=== PATIENT | female | born 1995 | race Two or more races ===

== ENCOUNTER 2017-06-16 02:46 | Emergency (ER) | payer BC ==
[2017-06-16 02:57] VITALS: RESP 16
[2017-06-16 03:29] LABS: Appearance,Urine Clear (Clear); Bilirubin,Urine Negative (Negative); Glucose,Urine (UA) Negative (Negative); Ketones,Urine Negative (Negative); Leukocyte Esterase,Urine Negative (Negative); Nitrite,Urine Negative (Negative); PH, Urine 6.5 (5.0-8.0); Protein,Urine Negative (Negative); Specific Gravity,Urine 1.014 (1.001-1.035); UA Billing (MACRO vs. MICRO) CHEM; Urobilinogen,Urine <2.0 mg/dL (<2.0)
[2017-06-16] MEDS ORDERED: SODIUM CHLORIDE 0.9% 1,000 ML IV STA (03:37)
--- NOTE | 2017-06-16 04:25 | ED ---
General Adult HPI - General Chief complaint: Urogenital Stated complaint: Cramping-early in Time Seen by Provider: 06/16/17 03:00 Source: patient Mode of arrival: ambulatory Limitations: no limitations - History of Present Illness Initial comments: 21-year-old female patient presents to emergency department stay with complaints of lower abdominal cramping and lower back pain. Patient states that symptoms have been present for 2 days. Patient states that she has had a positive test at home. Patient is unsure how far long she has she states her last period was somewhere between April 25 and April 30. Patient states that the pain is intermittent cramping and feels like menstrual cramps. Patient denies any fever, chills, chest pain, shortness of breath, vaginal bleeding, vaginal discharge, hematuria, dysuria, urinary frequency or urinary urgency. Patient states that she has been somewhat constipated. She states she has also been nauseated hasn't vomited. She states this is her first . She has her first ACQUISITION MARKETING COORDINATOR appointment on June 25. - Related Data Previous Rx's Medication Instructions Recorded Ibuprofen [Motrin] 600 mg PO Q6HR PRN #20 tab 10/10/15 Metoclopramide [Reglan] 10 mg PO Q8H PRN #15 tab 06/16/17 Pnv No.95/Ferrous Fum/Folic AC 1 each PO DAILY #30 tablet 06/16/17 [ Multivitamin Tablet] Allergies Allergy/AdvReac Type Severity Reaction Status Date / Time No Known Allergies Allergy Verified 06/16/17 02:57 Review of Systems ROS Statement: Those systems with pertinent positive or pertinent negative responses have been documented in the HPI. ROS Other: All systems not noted in ROS Statement are negative. Past Medical History Past Medical History: No Reported History History of Any Multi-Drug Resistant Organisms: None Reported Past Surgical History: No Surgical Hx Reported Past Psychological History: No Psychological Hx Reported Smoking Status: Never smoker Past Alcohol Use History: None Reported Past Drug Use History: None Reported General Exam Limitations: no limitations General appearance: alert, in no apparent distress Head exam: Present: atraumatic, normocephalic, normal inspection Eye exam: Present: normal appearance, PERRL, EOMI. Absent: scleral icterus, conjunctival injection, periorbital swelling ENT exam: Present: normal exam, mucous membranes moist Neck exam: Present: normal inspection. Absent: tenderness, meningismus, lymphadenopathy Respiratory exam: Present: normal lung sounds bilaterally. Absent: respiratory distress, wheezes, rales, rhonchi, stridor Cardiovascular Exam: Present: regular rate, normal rhythm, normal heart sounds. Absent: systolic murmur, diastolic murmur, rubs, gallop, clicks GI/Abdominal exam: Present: soft, tenderness (Her abdominal tenderness), normal bowel sounds. Absent: distended, guarding, rebound, rigid Extremities exam: Present: normal inspection, full ROM, normal capillary refill. Absent: tenderness, pedal edema, joint swelling, calf tenderness Back exam: Present: normal inspection. Absent: CVA tenderness (R), CVA tenderness (L) Neurological exam: Present: alert, oriented X3, CN II-XII intact Psychiatric exam: Present: normal affect, normal mood Skin exam: Present: warm, dry, intact, normal color. Absent: rash Course Vital Signs 06/16/17 02:54 Temperature 97.2 F L Pulse Rate 78 Respiratory 16 Rate Blood Pressure 132/87 O2 Sat by Pulse 100 Oximetry Medical Decision Making - Medical Decision Making 21-year-old female patient presents to emergency department today for evaluation of lower abdominal cramping and low back pain and . Patient did not have any vaginal bleeding or vaginal discharge. Patient blood type A positive. Ultrasound did reveal a live single intrauterine measuring 6 weeks with a heart rate of 102. Also did reveal 2 pockets of subchorionic hemorrhage. Patient will be discharged home with instructions to follow up as soon as possible with ACQUISITION MARKETING COORDINATOR. Patient given referral for Dr. Bar who is correspondence representative. Patient instructed to increase fluids and to return immediately for any new, worsening, or concerning symptoms. - Lab Data Lab Results 06/16/17 06/16/17 06/16/17 Range/Units 03:00 03:45 03:45 HCG, Quant 94069.2 mIU/mL Urine Color Yellow Urine Appearance Clear (Clear) Urine pH 6.5 (5.0-8.0) Ur Specific [place] 1.014 (1.001-1.035) Urine Protein Negative (Negative) Urine Glucose (UA) Negative (Negative) Urine Ketones Negative (Negative) Urine Blood Negative (Negative) Urine Nitrite Negative (Negative) Urine Bilirubin Negative (Negative) Urine Urobilinogen <2.0 (<2.0) mg/dL Ur Leukocyte Esterase Negative (Negative) Blood Type A Positive Blood Type Recheck No - Radiology Data Radiology results: report reviewed, image reviewed Ultrasound obstetrics transvaginal was obtained and showed single live intrauterine . 2 small pockets of subchorionic hemorrhage. Embryonic heart rate is 102. Left ovarian cyst noted. Disposition Clinical Impression: Abdominal pain during in first trimester, Subchorionic hemorrhage in first trimester Disposition: HOME SELF-CARE Condition: Good Instructions: (ED), Abdominal Pain in (ED), Subchorionic Hemorrhage (ED) Additional Instructions: Follow-up with ACQUISITION MARKETING COORDINATOR as soon as possible. Increase fluid intake. Return immediately for any new, worsening, or concerning symptoms. Prescriptions: Metoclopramide [Reglan] 10 mg PO Q8H PRN #15 tab PRN Reason: nausea/vomiting Pnv No.95/Ferrous Fum/Folic AC [ Multivitamin Tablet] 1 each PO DAILY # 30 tablet Referrals: Eugenio Lenz MD [Primary Care Provider] - 1-2 days Candelaria Bar DO [Doctor of Osteopathic Medicine] - 1-2 days Time of Disposition: 06:00
--- NOTE | 2017-06-16 05:50 | US ---
EXAM: US After First Trimester, Transabdominal US , Transvaginal CLINICAL HISTORY: Reason: Pain TECHNIQUE: Real-time transabdominal and endovaginal obstetrical ultrasound of the maternal pelvis and a second or third trimester with image documentation. Endovaginal imaging was used for better evaluation of the fetus and adnexa. COMPARISON: No relevant prior studies available. FINDINGS: Beta HcG (if available): not available Date of LMP: 04/25/2017, G1 Dates by LMP: (7 weeks/3 days) EDC: 01/30/2018 Dates by Current Scan for: (6 weeks/0 days) EDC: 02/09/2018 MATERNAL ANATOMY Uterus: 8.6 x 5.8 x 5.1 cm Right Ovary: 2.3 x 1.0 x 1.4 cm Left Ovary: 4.5 x 3.9 x 3.1 cm. Left ovary cyst measures about 3.5 x 3.5 x 3.2 cm Presence of subchorionic bleed: two. 1- left of gestational sac= 0.6 x 0. 6x 0.3 cm. 2- midline- 1.2 x 0.7 x 1.0 cm. GESTATION / SURVEY CRL: 0.3 (6 weeks/0 days) MSD: seen, not measured Yolk Sac (normal less than 6mm): 2.7 mm Heart Rate: 102 bpm Rhythm: normal IMPRESSION: Single live intrauterine . 2 small pockets of subchorionic hemorrhage warrants followup. Embryonic heart rate is 102 Left ovarian cyst
[2017-06-16 06:14] VITALS: BP 108/70; PULSE 70; TEMP 98
== END 2017-06-16 06:13 | disposition home or self-care (01) ==
LOC: EC 02:46
DX: O43.891 Other placental disorders, first trimester (principal); O99.89 Other specified diseases and conditions complicating pregnancy, childbirth and the puerperium; R10.9 Unspecified abdominal pain; Z3A.01 Less than 8 weeks gestation of pregnancy
CPT/HCPCS: 36415; 76801; 76817; 81003; 84702; 86900; 86901; 96360; 96361; 99284

== ENCOUNTER 2017-07-09 14:37 | Emergency (ER) | payer BC ==
[2017-07-09] MEDS ORDERED: SODIUM CHLORIDE 0.9% 1,000 ML IV STA (15:21)
[2017-07-09] MEDS ORDERED: ACETAMINOPHEN TAB 500 MG TAB PO STA (15:21)
--- NOTE | 2017-07-09 15:23 | ED ---
General Adult HPI - General Chief complaint: Headache Stated complaint: 11 wks preg. Vomiting Time Seen by Provider: 07/09/17 15:15 Source: patient, RN notes reviewed Mode of arrival: ambulatory Limitations: no limitations - History of Present Illness Initial comments: 21-year-old female presents with respiratory type symptoms. Patient states she' s had a little bit of a cough a sore throat and runny nose headache for the past few days. Patient states she also associated nausea vomiting. Patient states she is 11 weeks . She is not taking any medication for this. She states she has not been able to eat and drink much she starting to feels if she is getting worse. Patient states she hasn't noticed any high fevers at home. Patient denies any changes in urination. patient denies abdominal pain. - Related Data Home Medications Medication Instructions Recorded Confirmed Pnv,Calcium 72/Iron/Folic Acid 1 tab PO DAILY 07/09/17 07/09/17 [ Plus Tablet] Allergies Allergy/AdvReac Type Severity Reaction Status Date / Time No Known Allergies Allergy Verified 07/09/17 15:09 Review of Systems ROS Statement: Those systems with pertinent positive or pertinent negative responses have been documented in the HPI. ROS Other: All systems not noted in ROS Statement are negative. Past Medical History Past Medical History: No Reported History History of Any Multi-Drug Resistant Organisms: None Reported Past Surgical History: Orthopedic Surgery Past Psychological History: No Psychological Hx Reported Smoking Status: Never smoker Past Alcohol Use History: None Reported Past Drug Use History: None Reported General Exam - General Exam Comments Initial Comments: General: The patient is awake and alert, in no distress, and does not appear acutely ill. Eye: Pupils are equal, round and reactive to light, extra-ocular movements are intact; there is normal conjunctiva bilaterally. No signs of icterus. Ears, nose, mouth and throat: There are moist mucous membranes. Neck: The neck is supple, there is no tenderness. Cardiovascular: There is a regular rate and rhythm. No murmur, rub or gallop is appreciated. Respiratory: Lungs are clear to auscultation, respirations are non-labored, breath sounds are equal. No wheezes, stridor, rales, or rhonchi. Gastrointestinal: Soft, non-distended, non-tender abdomen without masses or organomegaly noted. There is no rebound or guarding present. No CVA tenderness. Bowel sounds are unremarkable. Back: There is no tenderness to palpation in the midline. There is no obvious deformity. No rashes noted. Musculoskeletal: Normal ROM, no tenderness, There is no pedal edema. There is no calf tenderness or swelling. Sensation intact. Pulses equal bilaterally 2+. Neurological: CN II-XII intact, There are no obvious motor or sensory deficits. Coordination appears grossly intact. Speech is normal. Skin: Skin is warm and dry and no rashes or lesions are noted. Psychiatric: Cooperative, appropriate mood & affect, normal judgment. Limitations: no limitations Course Vital Signs 07/09/17 14:46 Temperature 100 F H Pulse Rate 114 H Respiratory 20 Rate Blood Pressure 117/81 O2 Sat by Pulse 98 Oximetry Medical Decision Making - Medical Decision Making 21-year-old female presents for upper respiratory type symptoms. At this time lab work has been reviewed as well as strep is negative. This and we discussed patient most likely a viral like syndrome. We discussed usp. We did discuss appropriate medications. We did discuss return parameters and follow-up and all the patient's questions. They state [facility] management plan. This time they will be discharged home. - Lab Data Result diagrams: 07/09/17 15:27 07/09/17 15:27 Lab Results 07/09/17 07/09/17 07/09/17 Range/Units 15:27 15:27 15:34 WBC 9.6 (3.8-10.6) k/uL RBC 4.80 (3.80-5.40) m/uL Hgb 15.3 (11.4-16.0) gm/dL Hct 43.9 (34.0-46.0) % MCV 91.5 (80.0-100.0) fL MCH 31.9 (25.0-35.0) pg MCHC 34.9 (31.0-37.0) g/dL RDW 12.9 (11.5-15.5) % Plt Count 262 (150-450) k/uL Neutrophils % 80 % Lymphocytes % 10 % Monocytes % 8 % Eosinophils % 1 % Basophils % 0 % Neutrophils # 7.6 (1.3-7.7) k/uL Lymphocytes # 0.9 L (1.0-4.8) k/uL Monocytes # 0.8 (0-1.0) k/uL Eosinophils # 0.1 (0-0.7) k/uL Basophils # 0.0 (0-0.2) k/uL Sodium 135 L (137-145) mmol/L Potassium 4.1 (3.5-5.1) mmol/L Chloride 103 (98-107) mmol/L Carbon Dioxide 21 L (22-30) mmol/L Anion Gap 11 mmol/L BUN 4 L (7-17) mg/dL Creatinine 0.50 L (0.52-1.04) mg/dL Est GFR (MDRD) Af Amer >60 (>60 ml/min/1.73 sqM) Est GFR (MDRD) Non-Af >60 (>60 ml/min/1.73 sqM) Glucose 88 (74-99) mg/dL Calcium 9.2 (8.4-10.2) mg/dL Total Bilirubin 0.6 (0.2-1.3) mg/dL AST 23 (14-36) U/L ALT 35 (9-52) U/L Alkaline Phosphatase 103 (38-126) U/L Total Protein 7.1 (6.3-8.2) g/dL Albumin 4.0 (3.5-5.0) g/dL Urine Color Yellow Urine Appearance Clear (Clear) Urine pH 6.5 (5.0-8.0) Ur Specific [place] 1.020 (1.001-1.035) Urine Protein Trace H (Negative) Urine Glucose (UA) Negative (Negative) Urine Ketones Negative (Negative) Urine Blood Negative (Negative) Urine Nitrite Negative (Negative) Urine Bilirubin Negative (Negative) Urine Urobilinogen <2.0 (<2.0) mg/dL Ur Leukocyte Esterase Negative (Negative) Group A Strep Rapid (Negative) 07/09/17 Range/Units 15:34 WBC (3.8-10.6) k/uL RBC (3.80-5.40) m/uL Hgb (11.4-16.0) gm/dL Hct (34.0-46.0) % MCV (80.0-100.0) fL MCH (25.0-35.0) pg MCHC (31.0-37.0) g/dL RDW (11.5-15.5) % Plt Count (150-450) k/uL Neutrophils % % Lymphocytes % % Monocytes % % Eosinophils % % Basophils % % Neutrophils # (1.3-7.7) k/uL Lymphocytes # (1.0-4.8) k/uL Monocytes # (0-1.0) k/uL Eosinophils # (0-0.7) k/uL Basophils # (0-0.2) k/uL Sodium (137-145) mmol/L Potassium (3.5-5.1) mmol/L Chloride (98-107) mmol/L Carbon Dioxide (22-30) mmol/L Anion Gap mmol/L BUN (7-17) mg/dL Creatinine (0.52-1.04) mg/dL Est GFR (MDRD) Af Amer (>60 ml/min/1.73 sqM) Est GFR (MDRD) Non-Af (>60 ml/min/1.73 sqM) Glucose (74-99) mg/dL Calcium (8.4-10.2) mg/dL Total Bilirubin (0.2-1.3) mg/dL AST (14-36) U/L ALT (9-52) U/L Alkaline Phosphatase (38-126) U/L Total Protein (6.3-8.2) g/dL Albumin (3.5-5.0) g/dL Urine Color Urine Appearance (Clear) Urine pH (5.0-8.0) Ur Specific [place] (1.001-1.035) Urine Protein (Negative) Urine Glucose (UA) (Negative) Urine Ketones (Negative) Urine Blood (Negative) Urine Nitrite (Negative) Urine Bilirubin (Negative) Urine Urobilinogen (<2.0) mg/dL Ur Leukocyte Esterase (Negative) Group A Strep Rapid Negative (Negative) Disposition Clinical Impression: Viral syndrome, Nausea & vomiting Disposition: HOME SELF-CARE Condition: Stable Instructions: Viral Syndrome (ED) Additional Instructions: Please use medication as discussed. Please follow up with family doctor if symptoms have not improved over the next two days. Please return to the emergency room if your symptoms increase or worsen or for any other concerns. Referrals: Eugenio Lenz MD [Primary Care Provider] - 1-2 days Time of Disposition: 17:25
[2017-07-09 15:47] LABS: Basophils % (A) 0 %; CH 31.4; CHCM 34.5; Eosinophils # (A) 0.1 k/uL (0-0.7); Eosinophils % (A) 1 %; HCT 43.9 % (34.0-46.0); HDW 2.15; HGB 15.3 gm/dL (11.4-16.0); Luc # (Auto) 0.18; Luc % (Auto) 2; Lymphocytes # (A) 0.9 k/uL (1.0-4.8); Lymphocytes % (A) 10 %; MCH 31.9 pg (25.0-35.0); MCHC 34.9 g/dL (31.0-37.0); MCV 91.5 fL (80.0-100.0); Mean Platelet Volume 7.4; Monocytes # (A) 0.8 k/uL (0-1.0); Monocytes % (A) 8 %; Neutrophils # (A) 7.6 k/uL (1.3-7.7); Neutrophils % (A) 80 %; RDW 12.9 % (11.5-15.5); WBC 9.6 k/uL (3.8-10.6); WBC (Perox) 9.96
[2017-07-09 15:54] LABS: Appearance,Urine Clear (Clear); Bilirubin,Urine Negative (Negative); Glucose,Urine (UA) Negative (Negative); Ketones,Urine Negative (Negative); Leukocyte Esterase,Urine Negative (Negative); Nitrite,Urine Negative (Negative); PH, Urine 6.5 (5.0-8.0); Protein,Urine Trace (Negative); UA Billing (MACRO vs. MICRO) CHEM; Urobilinogen,Urine <2.0 mg/dL (<2.0)
[2017-07-09 17:18] LABS: ALT 35 U/L (9-52); AST 23 U/L (14-36); Alkaline Phosphatase 103 U/L (38-126); Anion Gap 11 mmol/L; Blood Urea Nitrogen 4 mg/dL (7-17); Calcium 9.2 mg/dL (8.4-10.2); Carbon Dioxide 21 mmol/L (22-30); Chloride 103 mmol/L (98-107); Glucose 88 mg/dL (74-99); Non-African American GFR(MDRD) >60 (>60 ml/min/1.73 sqM); Potassium 4.1 mmol/L (3.5-5.1); Sodium 135 mmol/L (137-145); Total Bilirubin 0.6 mg/dL (0.2-1.3); Total Protein 7.1 g/dL (6.3-8.2)
[2017-07-09 18:05] VITALS: BP 123/84; PULSE 73; RESP 18; TEMP 98.9
== END 2017-07-09 18:05 | disposition home or self-care (01) ==
LOC: EC 14:37
DX: O98.511 Other viral diseases complicating pregnancy, first trimester (principal); B34.9 Viral infection, unspecified; Z79.899 Other long term (current) drug therapy; Z3A.11 11 weeks gestation of pregnancy
CPT/HCPCS: 36415; 80053; 81003; 85025; 87081; 87430; 87491; 87591; 96360; 99284

== ENCOUNTER → 2017-08-14 | Outpatient (CLI) | payer BC ==
[2017-08-14 13:03] LABS: CH 31.3; CHCM 33.1; HCT 41.5 % (34.0-46.0); HGB 13.9 gm/dL (11.4-16.0); MCH 31.8 pg (25.0-35.0); MCHC 33.5 g/dL (31.0-37.0); MCV 94.9 fL (80.0-100.0); Mean Platelet Volume 7.4; RBC 4.37 m/uL (3.80-5.40); WBC 9.8 k/uL (3.8-10.6)
[2017-08-14 13:05] LABS: Glucose 84 mg/dL (74-99); Non-African American GFR(MDRD) >60 (>60 ml/min/1.73 sqM)
[2017-08-14 13:37] LABS: Hepatitis B Surface Ag Index 0.06
[2017-08-14 18:58] LABS: Treponemal Ab Non-Reactive (Non-Reactive)
== END | disposition home or self-care (01) ==
LOC: LABWHC1 12:13
PROVIDERS: ATTEND Obstetrics & Gynecology
DX: O26.819 Pregnancy related exhaustion and fatigue, unspecified trimester (principal); Z3A.00 Weeks of gestation of pregnancy not specified
CPT/HCPCS: 36415; 82565; 82947; 85027; 86762; 86780; 86850; 86900; 86901; 87340; 87390

== ENCOUNTER 2018-01-24 20:30 | Outpatient (CLI) | payer BC, OTHER ==
[2018-01-24 21:50] LABS: Appearance,Urine Cloudy (Clear); Bacteria,Urine Moderate /hpf; Bilirubin,Urine Negative (Negative); Blood,Urine Moderate (Negative); Color,Urine Yellow; Glucose,Urine (UA) Negative (Negative); Ketones,Urine Negative (Negative); Leukocyte Esterase,Urine Moderate (Negative); Mucus,Urine Rare /hpf; Nitrite,Urine Negative (Negative); PH, Urine 6.5 (5.0-8.0); Protein,Urine Trace (Negative); RBC,Urine >182 /hpf (0-5); Specific Gravity,Urine 1.016 (1.001-1.035); Squamous Epithelial Cell,Urine 1 /hpf (0-4); Urobilinogen,Urine <2.0 mg/dL (<2.0); WBC,Urine 5 /hpf (0-5)
[2018-01-24 21:51] LABS: Basophils % (A) 0 %; Eosinophils # (A) 0.1 k/uL (0-0.7); Eosinophils % (A) 1 %; HCT 39.9 % (34.0-46.0); HGB 14.1 gm/dL (11.4-16.0); Lymphocytes # (A) 1.8 k/uL (1.0-4.8); Lymphocytes % (A) 15 %; MCH 31.8 pg (25.0-35.0); MCHC 35.3 g/dL (31.0-37.0); MCV 90.1 fL (80.0-100.0); Monocytes # (A) 0.7 k/uL (0-1.0); Monocytes % (A) 6 %; Neutrophils # (A) 9.1 k/uL (1.3-7.7); Neutrophils % (A) 76 %; Platelet Count 268 k/uL (150-450); RBC 4.43 m/uL (3.80-5.40); RDW 13.3 % (11.5-15.5); WBC 11.9 k/uL (3.8-10.6)
[2018-01-24 22:03] VITALS: BP 138/96; PULSE 90; RESP 16; TEMP 98.4
[2018-01-24 22:06] LABS: ALT 25 U/L (9-52); AST 18 U/L (14-36); Blood Urea Nitrogen 8 mg/dL (7-17); LDH 435 U/L (313-618); Uric Acid 3.6 mg/dL (3.7-7.4)
[2018-01-24] MEDS ORDERED: CEPHALEXIN 500 MG CAP PO STA (22:28)
--- NOTE | 2018-01-28 08:46 | P.MSEPDOC ---
Presenting Problems - Arrival Data Date of Arrival on Unit: 01/24/18 Time of Arrival on Unit: 20:30 Mode of Transport: Ambulatory - Complaint OB-Reason for Admission/Chief Complaint: Rule Out SROM Medical History - Information : 1 Para: 0 Term: 0 : 0 Abortions: Spontaneous or Elective: 0 Number of Living Children: 0 - Gestational Age Gestational Age by MARY BETH (wks/days): 37 Weeks and 5 Days Review of Systems - Review of Systems Constitutional: No problems Breast: No problems ENT: No problems Cardiovascular: No problems Respiratory: No problems Gastrointestinal: No problems Genitourinary: No problems Musculoskeletal: No problems Neurological: No problems Skin: No problems Vital Signs - Temperature Temperature: 98.4 F Temperature Source: Temporal Artery Scan - Pulse Right Sitting Brachial Pulse Rate: 90 Pulse Assessment Method: Automatic Cuff - Respirations Respiratory Rate: 16 Oxygen Delivery Method: Room Air - Blood Pressure Right Arm Sitting Blood Pressure: 138/96 Blood Pressure Mean: 110 Blood Pressure Source: Automatic Cuff Medical Screen Scoring (Pre) - Cervical Exam Dilation: 1-3 cm = 1 Membranes: Intact - Uterine Contractions Frequency: > or = 36 weeks =2 Duration: > 40 seconds = 2 - Maternal Vital Signs Maternal Blood Pressure: Diastolic > 89 = 1 - Pain Assessment Pain Location and Character: Medial, Abdomen Pain Scale Used: Numeric (1 - 10) Pain Intensity: 2 Pain Management Goal: 2 Pain Description: Cramping Pain Radiation Location: n/a Pain Frequency: Intermittent Pain Duration: 30 Pain Duration Units: Minutes Pain Behavior: Vocalization Pain Aggravating Factors: None - Maternal Trauma Maternal Trauma: N/A - Assessment Baseline FHR: 130 Heart Rate - NICHD Category: Category I (Normal) = 0 NST: Reactive - Total Score Total Score (Pre): 6 - Level of Risk Level of Risk: Medium (6-9) Physician Notification (Post) - Physician Notified Physician Notified Date: 01/24/18 Physician Notified Time: 22:23 Physician/Practitioner Notified:: destiney Spoke With: destiney New Order Received: Yes - Notification Comment Comment: ordered a dose of keflex, send e-script to pt's pharmacy to hand picker tomorrow, pt instructed to come back to [facility] on saturday for BP check and NST. pt discharged home. Disposition - Disposition OB Disposition: Discharge to home Discharge Date: 01/24/18 Discharge Time: 22:59 I agree with the RN Medical Screening Exam: Yes Risk & Benefit of care provided described in d/c instruction: Yes Diagnosis: URINARY TRACT INFECTION, SITE NOT SPECIFIED
== END 2018-01-24 22:59 | disposition home or self-care (01) ==
LOC: FBPOP 20:30
PROVIDERS: ATTEND Obstetrics & Gynecology
DX: O99.89 Other specified diseases and conditions complicating pregnancy, childbirth and the puerperium (principal); N39.0 Urinary tract infection, site not specified; Z3A.37 37 weeks gestation of pregnancy
CPT/HCPCS: 59025; 81001; 82565; 83615; 84112; 84450; 84460; 84520; 84550; 85025; 99215

== ENCOUNTER 2018-01-26 10:28 | Inpatient (IN) | payer BC, OTHER ==
[2018-01-26] MEDS ORDERED: LIDOCAINE 1% (PF) 10 MG/ML (30 ML SDV) SQ PRN (11:43)
[2018-01-26] MEDS ORDERED: OXYTOCIN 10 UNIT/ML 1 ML VIAL IM PRN (11:43)
[2018-01-26] MEDS ORDERED: TERBUTALINE 1 MG/ML VIAL SQ PRN (11:43)
[2018-01-26] MEDS ORDERED: METHYLERGONOVINE 0.2 MG/ML 1 ML AMP IM PRN (11:43)
[2018-01-26] MEDS ORDERED: CARBOPROST TROMETHAMINE 250 MCG/ML 1 ML AMP IM PRN (11:43)
[2018-01-26 12:01] LABS: Basophils # (A) 0.1 k/uL (0-0.2); Basophils % (A) 1 %; Eosinophils # (A) 0.1 k/uL (0-0.7); Eosinophils % (A) 1 %; HCT 39.9 % (34.0-46.0); HGB 13.7 gm/dL (11.4-16.0); Lymphocytes # (A) 2.2 k/uL (1.0-4.8); Lymphocytes % (A) 22 %; MCH 31.1 pg (25.0-35.0); MCHC 34.3 g/dL (31.0-37.0); MCV 90.8 fL (80.0-100.0); Mean Platelet Volume 8.9; Monocytes # (A) 0.7 k/uL (0-1.0); Monocytes % (A) 7 %; Neutrophils # (A) 6.9 k/uL (1.3-7.7); Neutrophils % (A) 68 %; Platelet Count 266 k/uL (150-450); RDW 13.2 % (11.5-15.5); WBC 10.2 k/uL (3.8-10.6)
[2018-01-26 12:03] VITALS: BMI 38.4
[2018-01-26 12:14] LABS: INR 0.9 (<1.2); Partial Thromboplastin Time 24.3 sec (22.0-30.0); Prothrombin Time 9.4 sec (9.0-12.0)
[2018-01-26] MEDS ORDERED: DINOPROSTONE 10 MG INSERT.ER VAGINAL ONE (13:31)
--- NOTE | 2018-01-26 14:49 | P.HPOB ---
History of Present Illness H&P Date: 01/26/18 Chief Complaint: Intrauterine at 37 weeks: Gestational hypertension Hong is a 20-year-old at 37 weeks 5 days gestation who arrived for a blood pressure check and NST. Blood pressure again today was slightly elevated 140/90. She had 1 elevated blood pressure 2 days ago as well as a minimally elevated blood pressure at 36 weeks. As she is now had multiple blood pressures that are above the 140 or above the 90, limit we are moving forward with delivery. Risks and benefits of early delivery at 37 weeks for gestational hypertension were discussed including baby that may have not habits lungs completely mature but as the risk of stillbirth and other problems with hypertension including stroke and/or superimpose cleat preeclampsia outweighed the risk of this in this particular setting we are moving forward with delivery. Her cervix is however fingertip and 50 and therefore Cervidil will be placed to try and ripen the cervix tonight. Her course had been unremarkable up until that point, she did fail her 1 hour Glucola screen but passed her 3 hour Glucola Screen. Pertinent labs did not reveal any gross findings with a positive blood type negative Rh antibody, rubella was immune, RPR/hepatitis B surface antigen/HIV/and group B strep were all negative. On physical exam vital signs are stable and afebrile. Heart regular, lungs clear, extremities are without pain. Osteopathic exam is unremarkable. Abdomen is soft gravid uterus is noted. heart tones 140s and reactive. Cervical exam reveals her to be fingertip and 50% effaced at -3 station. Plan will be Cervidil ripening with expectation for induction tomorrow morning. Assessment intrauterine at 37 weeks with gestational hypertension. Plan expect spontaneous vaginal delivery. Risks of Cervidil were also discussed with patient and her including but not limited to tachysystole and potentially the need for emergency should heart rate tracings become irregular or show signs of distress due to the Cervidil. Past Medical History Past Medical History: No Reported History History of Any Multi-Drug Resistant Organisms: None Reported Past Surgical History: Orthopedic Surgery Additional Past Surgical History / Comment(s): right foot Past Anesthesia/Blood Transfusion Reactions: Postoperative Nausea & Vomiting ( PONV) Past Psychological History: No Psychological Hx Reported Smoking Status: Former smoker Past Alcohol Use History: None Reported Past Drug Use History: None Reported - Past Family History Father History Unknown: Yes Family Medical History: No Reported History Medications and Allergies Home Medications Medication Instructions Recorded Confirmed Type Cephalexin [Keflex] 250 mg PO Q8HR 01/26/18 01/26/18 History Allergies Allergy/AdvReac Type Severity Reaction Status Date / Time No Known Allergies Allergy Verified 01/26/18 10:30 Exam Osteopathic Statement: *. No significant issues noted on an osteopathic structural exam other than those noted in the History and Physical/Consult. - Vital Signs Vital signs: Vital Signs Temp Pulse Resp BP Pulse Ox 01/26/18 12:09 82 17 135/88 01/26/18 11:58 125/91 01/26/18 11:00 85 17 121/84 01/26/18 10:47 128/86 01/26/18 10:46 97.9 F 94 17 140/91 99 01/26/18 10:34 97.9 F 94 17 140/91 99 Intake and Output 01/25/18 01/26/18 01/26/18 22:59 06:59 14:59 Other: # Voids 1 Weight 98.43 kg Results Result Diagrams: 01/26/18 11:30
[2018-01-27] MEDS: LACTATED RINGERS 1,000 ML IV SCH ×2 (05:35→12:00)
[2018-01-27] MEDS ORDERED: TERBUTALINE 1 MG/ML VIAL SQ PRN (05:49)
[2018-01-27] MEDS ORDERED: OXYTOCIN 20 UNITS/1000 ML NS 1,000 ML IV SCH ×2 (06:00→18:00)
[2018-01-27] MEDS ORDERED: SODIUM CHLORIDE 0.9% 100 ML BAG ONE (09:14)
[2018-01-27] MEDS ORDERED: fentaNYL (PF) 50 MCG/ML 5 ML AMP ONE (09:14)
[2018-01-27] MEDS ORDERED: BUPIVACAINE (PF) 0.25% 30 ML VIAL ONE (09:14)
[2018-01-27] MEDS ORDERED: BUPIVACAINE (PF) 0.25% 25 ML, fentaNYL (PF) 200 MCG in SODIUM CHLORIDE 0.9% 71 ML EPIDURAL ONE (09:32)
[2018-01-27] MEDS ORDERED: diphenhydrAMINE 50 MG/ML 1 ML VIAL IVP PRN ×2 (17:56)
[2018-01-27] MEDS ORDERED: HYDROCORTISONE 2.5% RECTAL CREAM 30 GM TUBE RECTAL PRN (17:56)
[2018-01-27] MEDS ORDERED: diphenhydrAMINE 25 MG CAP PO PRN (17:56)
[2018-01-27] MEDS ORDERED: SIMETHICONE 80 MG CHEWABLE PO PRN (17:56)
[2018-01-27] MEDS ORDERED: WITCH HAZEL 1 EACH MED..PAD TOPICAL PRN (17:56)
[2018-01-27] MEDS ORDERED: diphenhydrAMINE 50 MG CAP PO PRN (17:56)
[2018-01-27] MEDS ORDERED: BENZOCAINE/MENTHOL SPRAY 1 GM/SPRAY AEROSOL TOPICAL PRN (17:56)
[2018-01-27] MEDS ORDERED: ZOLPIDEM 5 MG TAB PO PRN (17:56)
[2018-01-27] MEDS ORDERED: LANOLIN CREAM 5 GM TUBE TOPICAL PRN (17:56)
[2018-01-27] MEDS ORDERED: ACETAMINOPHEN TAB 325 MG TAB PO PRN (17:56)
--- NOTE | 2018-01-27 18:02 | P.PROBDLV ---
Vaginal Delivery Note - . Vaginal Delivery Note: 22-year-old presented at 38 weeks for induction of labor due to gestational hypertension. Her cervix was closed, 50% effaced, and -3 station. heart tones were category 1. She is not eduardo. Dr. Zuleta placed Cervidil on 01/26/2018 in the evening. In the morning of 01/27/2018 her cervix is 1 cm dilated, 50% effaced, -3 station. By 8:10 AM her cervix was 3, 80% effaced, -2 station. Amniotomy was performed and clear fluid noted. Pitocin had been started. She progressed throughout the day and her cervix was completely dilated by 1620. She pushed, and delivered a viable male over intact perineum under epidural anesthesia. Head delivered OA, anterior shoulder which was the right shoulder, delivered with gentle downward traction followed by posterior shoulder and rest of body. Nose and mouth bulb suctioned , cord clamped and cut, placed on mother's abdomen. Apgars 9, 9, weight 7 lbs. 9 oz. Placenta delivered spontaneously, intact with three-vessel cord at 1710. Vagina, cervix, and perineum were inspected. Second-degree midline laceration and bilateral labial tears were repaired with 2-0 and 3-0 Vicryl. Estimated blood loss 350 mL. Mother and baby in stable condition.
[2018-01-27] MEDS: IBUPROFEN 600 MG TAB PO PRN (18:16)
[2018-01-28] MEDS: SENNOSIDES-DOCUSATE SODIUM 1 EACH TAB PO SCH ×3 (05:15→21:55)
[2018-01-28] MEDS: IBUPROFEN 600 MG TAB PO PRN ×2 (05:44→16:16)
--- NOTE | 2018-01-28 08:42 | P.MSEPDOC ---
Presenting Problems - Arrival Data Date of Arrival on Unit: 01/26/18 Time of Arrival on Unit: 11:00 Mode of Transport: Ambulatory - Complaint OB-Reason for Admission/Chief Complaint: NST, Elevated Blood Pressure Comment: Pt was seen in triage on 01/24 and was told to come back today for a blood pressure recheck and nst, pt denies marks/blurred vision/ruq pain, non pitting pedal edema noted bilaterally, pt denies increase in swelling Medical History - Information : 1 Para: 0 Term: 0 : 0 Abortions: Spontaneous or Elective: 0 Number of Living Children: 0 - Gestational Age Gestational Age by MARY BETH (wks/days): 38 Weeks and 1 Days Review of Systems - Review of Systems Constitutional: No problems Breast: No problems ENT: No problems Cardiovascular: No problems Respiratory: No problems Gastrointestinal: No problems Genitourinary: No problems Musculoskeletal: No problems Neurological: No problems Skin: No problems Vital Signs - Temperature Temperature: 97.8 F Temperature Source: Oral - Pulse Right Brachial Pulse Rate: 106 Pulse Assessment Method: Automatic Cuff - Respirations Respiratory Rate: 16 Oxygen Delivery Method: Room Air O2 Sat by Pulse Oximetry: 99 - Blood Pressure Right Arm Blood Pressure: 129/78 Blood Pressure Mean: 95 Blood Pressure Source: Automatic Cuff Medical Screen Scoring (Pre) - Cervical Exam Dilation: Exam Deferred Effacement: Exam Deferred Membranes: Intact - Uterine Contractions Frequency: N/A Duration: N/A Intensity: N/A - Maternal Vital Signs Maternal Temperature: N/A Maternal Blood Pressure: N/A Signs of Preeclampsia: N/A Maternal Respirations: N/A - Pain Assessment Pain Scale Used: Numeric (1 - 10) Pain Intensity: 0 Pain Management Goal: 3 - Maternal Trauma Maternal Trauma: N/A - Assessment Baseline FHR: 130 Heart Rate - NICHD Category: Category I (Normal) = 0 NST: Reactive Position: N/A Station: N/A - Total Score Total Score (Pre): 0 - Level of Risk Level of Risk: Low (0-5) Physician Notification (Pre) - Physician Notified Physician/Practitioner Notifed:: ebenezer Spoke With: ebenezer New Order Received: Yes - Notification Comment Comment: may have epideral Medical Screen Scoring (Post) - Cervical Exam Dilation: Exam Deferred Effacement: Exam Deferred Membranes: Intact - Uterine Contractions Frequency: N/A Duration: N/A Intensity: N/A - Maternal Vital Signs Maternal Temperature: N/A Maternal Blood Pressure: N/A Signs of Preeclampsia: N/A Maternal Respirations: N/A - Pain Assessment Pain Scale Used: Numeric (1 - 10) Pain Intensity: 0 - Maternal Trauma Maternal Trauma: N/A - Assessment Heart Rate: 135 Heart Rate - NICHD Category: Category I (Normal) = 0 NST: Reactive Position: N/A Station: N/A - Total Score Total Score (Post): 0 - Post Treatment Level of Risk Post Treatment Level of Risk: Low (0-5) Physician Notification (Post) - Physician Notified Physician Notified Date: 01/26/18 Physician Notified Time: 11:00 Physician/Practitioner Notified:: Dr Zuleta Spoke With: Dr Zuleta New Order Received: Yes (admit for induction of labor) - Notification Comment Comment: reivewed bps with dr zuleta, will admit pt for iol to enrike 8 Disposition - Disposition OB Disposition: Admit, LDRP Suite I agree with the RN Medical Screening Exam: Yes Risk & Benefit of care provided described in d/c instruction: Yes Diagnosis: GESTATIONAL HTN W/O SIGNIFICANT PROTEINURIA, THIRD TRIMESTER
--- NOTE | 2018-01-28 08:50 | P.PNOBGVD ---
Subjective - Subjective Principal diagnosis: day 1 Interval history: Hong is doing very well day 1. She's ablating, voiding, and she is tolerating her diet. All questions are answered for her at this time. She was admitted for gestational hypertension however, her blood pressures of been very good since delivery. We will plan to continue monitoring her today into tomorrow with likely discharge home tomorrow. Her heart was regular, lungs were clear, extremities without pain. Abdomen is soft uterus is firm and lochia is reported be light. Assessment day 1. Plan continue care with likely discharged home tomorrow. Patient reports: Reports appetite normal, Reports voiding normally, Reports pain well controlled, Reports ambulating normally : doing well, in NICU Objective - Latest Vital Signs Latest vital signs: Vital Signs Temp Pulse Resp BP Pulse Ox 01/28/18 08:42 97.8 F 106 H 16 129/78 99 01/28/18 04:00 97.8 F 106 H 16 129/78 99 01/28/18 00:00 98.1 F 110 H 16 130/78 01/27/18 19:30 98.2 F 130 H 16 114/74 98 01/27/18 19:00 138 H 16 124/79 98 01/27/18 18:30 129 H 16 122/79 01/27/18 18:20 120 H 16 122/75 98 01/27/18 18:05 127 H 16 122/63 01/27/18 17:50 110 H 16 132/70 01/27/18 17:35 84 16 120/74 Intake and Output 01/27/18 01/28/18 01/28/18 22:59 06:59 14:59 Output Total 500 Balance -500 Output: Urine 200 Straight 200 Estimated Blood Loss 300 Other: # Voids 1
[2018-01-29] MEDS: IBUPROFEN 600 MG TAB PO PRN ×2 (01:21→12:05)
--- NOTE | 2018-01-29 08:47 | P.DS ---
Providers Date of admission: 01/26/18 11:00 Expected date of discharge: 01/29/18 Attending physician: Minh Zuleta Primary care physician: Stated None Hospital Course: Hong is doing very well day 2. She is involuting, voiding, and she is tolerating her diet. She voices no complaint. Vital signs are stable and afebrile. Once she was admitted for gestational hypertension, blood pressures have remained stable following delivery. Her heart is regular, lungs are clear, extremities without pain. Abdomen is soft uterus is firm lochia is reported to be light. Assessment day 2. Plan discharged home follow up with me in 6 weeks. Discharge instructions were thoroughly reviewed and all questions are answered for her prior to her discharge. Should she have any signs or symptoms of preeclampsia elevated blood pressures headaches epigastric pain or other findings she is to report immediately to the emergency room. A prescription for Motrin and a breast pump have also been provided. Patient Condition at Discharge: Good Plan - Discharge Summary New Discharge Prescriptions: New Ibuprofen [Motrin] 600 mg PO Q6HR PRN #30 tab PRN Reason: Pain No Action Cephalexin [Keflex] 250 mg PO Q8HR Discharge Medication List Cephalexin [Keflex] 250 mg PO Q8HR 01/26/18 [History] Ibuprofen [Motrin] 600 mg PO Q6HR PRN #30 tab 01/29/18 [Rx] Follow up Appointment(s)/Referral(s): Minh Zuleta DO [Doctor of Osteopathic Medicine] - 6 Weeks Activity/Diet/Wound Care/Special Instructions: No heavy lifting, limit stairs and driving, and pelvic rest. If any high temperatures, heavy bleeding, or severe pain call my office Discharge Disposition: HOME SELF-CARE
[2018-01-29 11:09] VITALS: BP 129/82; PULSE 93; RESP 20; TEMP 98.6
== END 2018-01-29 14:55 | disposition home or self-care (01) | DRG 775 ==
LOC: FBPOP 10:28 → 4FBP 11:00
PROVIDERS: ADMIT Obstetrics & Gynecology; ATTEND Obstetrics & Gynecology
PROC: 10E0XZZ Delivery of Products of Conception, External Approach (ICD-10-PCS; principal; 2018-01-27)
PROC: 0KQM0ZZ Repair Perineum Muscle, Open Approach (ICD-10-PCS; 2018-01-27)
PROC: 00HU33Z Insertion of Infusion Device into Spinal Canal, Percutaneous Approach (ICD-10-PCS; 2018-01-27)
PROC: 3E0R3BZ Introduction of Anesthetic Agent into Spinal Canal, Percutaneous Approach (ICD-10-PCS; 2018-01-27)
PROC: 3E033VJ Introduction of Other Hormone into Peripheral Vein, Percutaneous Approach (ICD-10-PCS; 2018-01-27)
PROC: 10907ZC Drainage of Amniotic Fluid, Therapeutic from Products of Conception, Via Natural or Artificial Opening (ICD-10-PCS; 2018-01-27)
DX: O13.4 Gestational [pregnancy-induced] hypertension without significant proteinuria, complicating childbirth (principal); O70.1 Second degree perineal laceration during delivery; Z37.0 Single live birth; Z3A.37 37 weeks gestation of pregnancy; Z87.891 Personal history of nicotine dependence
CPT/HCPCS: 59025; 85025; 85610; 85730; 88307

== ENCOUNTER 2018-03-26 04:44 | Emergency (ER) | payer BC, OTHER ==
--- NOTE | 2018-03-26 05:03 | ED ---
Chest Pain HPI - General Source: patient Mode of arrival: wheelchair Limitations: no limitations - History of Present Illness MD Complaint: chest pain Onset/Timin -: hour(s) Onset: during rest Pain Location: epigastric Pain Radiation: back Severity: severe Quality: aching Consistency: constant, now resolved Improves With: nothing Worsens With: nothing Anginal Symptoms: nausea Treatments Prior to Arrival: none <Julio Saldana - Last Filed: 03/26/18 05:10> <Иван Fair - Last Filed: 03/26/18 08:32> - General Chief Complaint: Chest Pain Stated Complaint: Chest/Back Pain Time Seen by Provider: 03/26/18 05:00 - History of Present Illness Initial Comments: This patient is a 22-year-old woman who presents to be evaluated for epigastric chest pain. Patient states she has been having episodes of this for the past 2 nights and now maris had another episode. She states maris's episode was the most severe. The pain does radiate to her back. She states it is sharp pain. She has not noted any worsening or relieving factors. (Julio Saldana) - Related Data Home Medications Medication Instructions Recorded Confirmed [place]-28 1 tab PO DAILY 03/26/18 03/26/18 Allergies Allergy/AdvReac Type Severity Reaction Status Date / Time No Known Allergies Allergy Verified 03/26/18 07:59 Review of Systems ROS Other: All systems not noted in ROS Statement are negative. Constitutional: Denies: fever, chills, weakness Respiratory: Denies: cough, dyspnea, wheezes Cardiovascular: Reports: chest pain. Denies: palpitations, orthopnea, edema, syncope Gastrointestinal: Denies: abdominal pain, nausea, vomiting Genitourinary: Denies: dysuria, hematuria Musculoskeletal: Denies: back pain Skin: Denies: rash Neurological: Denies: headache <Julio Saldana - Last Filed: 03/26/18 05:10> ROS Other: All systems not noted in ROS Statement are negative. <Иван Fair - Last Filed: 03/26/18 08:32> ROS Statement: Those systems with pertinent positive or pertinent negative responses have been documented in the HPI. EKG Findings - EKG Results: EKG: interpreted by ERMD, sinus rhythm (Rate 65 bpm), normal axis, normal QRS, normal ST/T <Julio Saldana - Last Filed: 03/26/18 05:10> Past Medical History Past Medical History: No Reported History History of Any Multi-Drug Resistant Organisms: None Reported Past Surgical History: Orthopedic Surgery Additional Past Surgical History / Comment(s): right foot Past Anesthesia/Blood Transfusion Reactions: Postoperative Nausea & Vomiting ( PONV) Past Psychological History: No Psychological Hx Reported Smoking Status: Former smoker Past Alcohol Use History: None Reported Past Drug Use History: None Reported - Past Family History Father History Unknown: Yes Family Medical History: No Reported History <Julio Saldana - Last Filed: 03/26/18 05:10> General Exam Limitations: no limitations General appearance: alert, in no apparent distress Head exam: Present: atraumatic, normocephalic Eye exam: Present: normal appearance. Absent: scleral icterus, conjunctival injection ENT exam: Present: normal oropharynx Respiratory exam: Present: normal lung sounds bilaterally. Absent: respiratory distress, wheezes, rales, rhonchi, stridor, chest wall tenderness, accessory muscle use, decreased breath sounds, prolonged expiratory Cardiovascular Exam: Present: regular rate, normal rhythm, normal heart sounds. Absent: systolic murmur, diastolic murmur, rubs, gallop GI/Abdominal exam: Present: soft. Absent: distended, tenderness, guarding, rebound, organomegaly, mass, pulsatile mass, hernia Extremities exam: Present: normal inspection, normal capillary refill. Absent: pedal edema, calf tenderness Back exam: Present: normal inspection. Absent: CVA tenderness (R), CVA tenderness (L) Neurological exam: Present: alert Skin exam: Present: warm, dry, intact, normal color. Absent: rash <Julio Saldana - Last Filed: 03/26/18 05:10> General appearance: alert, in no apparent distress Head exam: Present: atraumatic, normocephalic, normal inspection Eye exam: Present: normal appearance, PERRL, EOMI. Absent: scleral icterus, conjunctival injection, periorbital swelling ENT exam: Present: normal exam, mucous membranes moist Neck exam: Present: normal inspection. Absent: tenderness, meningismus, lymphadenopathy Respiratory exam: Present: normal lung sounds bilaterally. Absent: respiratory distress, wheezes, rales, rhonchi, stridor Cardiovascular Exam: Present: regular rate, normal rhythm, normal heart sounds. Absent: systolic murmur, diastolic murmur, rubs, gallop, clicks GI/Abdominal exam: Present: soft, normal bowel sounds. Absent: distended, tenderness, guarding, rebound, rigid Extremities exam: Present: normal inspection, full ROM, normal capillary refill. Absent: tenderness, pedal edema, joint swelling, calf tenderness Back exam: Present: normal inspection Neurological exam: Present: alert, oriented X3, CN II-XII intact Psychiatric exam: Present: normal affect, normal mood Skin exam: Present: warm, dry, intact, normal color. Absent: rash <Иван Fair - Last Filed: 03/26/18 08:32> Course <Julio Saldana - Last Filed: 03/26/18 05:10> <Иван Fair - Last Filed: 03/26/18 08:32> Vital Signs 03/26/18 03/26/18 03/26/18 04:48 06:44 07:15 Temperature 97.6 F Pulse Rate 61 65 66 Respiratory 18 18 18 Rate Blood Pressure 118/72 107/65 117/72 O2 Sat by Pulse 100 100 100 Oximetry - Reevaluation(s) Reevaluation #1: 03/26/18 08:31 CT is negative for acute disease, US gallbladder shows color disease but no acute cholecystitis (Иван Fair) Chest Pain MDM <Julio Saldana - Last Filed: 03/26/18 05:10> <Иван Fair - Last Filed: 03/26/18 08:32> - MDM 22 female the ER nonspecific abdominal pain chest pain. Symptoms are improved, imaging negative. Patient be discharged home (Иван Fair) Disposition <Julio Saldana - Last Filed: 03/26/18 05:10> Is patient prescribed a controlled substance at d/c from ED?: No <Иван Fair - Last Filed: 03/26/18 08:32> Clinical Impression: Chest pain, Abdominal pain Disposition: HOME SELF-CARE Instructions: Chest Pain (ED), Abdominal Pain (ED) Referrals: Eugenio Lenz MD [Primary Care Provider] - 1-2 days
--- NOTE | 2018-03-26 05:24 | XR ---
EXAMINATION TYPE: XR chest 1V portable DATE OF EXAM: 03/26/2018 COMPARISON: NONE HISTORY: Chest pain TECHNIQUE: Single frontal view of the chest is obtained. FINDINGS: Heart and mediastinum are normal. Lungs are clear. Diaphragm is normal. Bony thorax appear s normal. There are chest leads. IMPRESSION: Normal chest.
[2018-03-26 05:58] LABS: Basophils # (A) 0.1 k/uL (0-0.2); Basophils % (A) 1 %; Eosinophils # (A) 0.1 k/uL (0-0.7); Eosinophils % (A) 2 %; HCT 37.4 % (34.0-46.0); HGB 11.7 gm/dL (11.4-16.0); Hypochromasia Marked; Lymphocytes # (A) 2.2 k/uL (1.0-4.8); Lymphocytes % (A) 26 %; MCH 25.6 pg (25.0-35.0); MCHC 31.3 g/dL (31.0-37.0); Monocytes # (A) 0.5 k/uL (0-1.0); Monocytes % (A) 6 %; Neutrophils # (A) 5.3 k/uL (1.3-7.7); Neutrophils % (A) 63 %; Platelet Count 397 k/uL (150-450); RBC 4.58 m/uL (3.80-5.40); WBC 8.4 k/uL (3.8-10.6)
[2018-03-26 06:00] LABS: MCV 81.7 fL (80.0-100.0)
[2018-03-26 06:05] LABS: ALT 88 U/L (9-52); AST 67 U/L (14-36); Alkaline Phosphatase 123 U/L (38-126); Amylase 76 U/L (30-110); Anion Gap 14 mmol/L; Blood Urea Nitrogen 15 mg/dL (7-17); Calcium 9.3 mg/dL (8.4-10.2); Carbon Dioxide 24 mmol/L (22-30); Chloride 104 mmol/L (98-107); Glucose 96 mg/dL (74-99); Lipase 220 U/L (23-300); Magnesium 1.8 mg/dL (1.6-2.3); Partial Thromboplastin Time 22.3 sec (22.0-30.0); Potassium 4.2 mmol/L (3.5-5.1); Prothrombin Time 9.5 sec (9.0-12.0); Sodium 142 mmol/L (137-145); Total Bilirubin 0.4 mg/dL (0.2-1.3)
[2018-03-26 06:08] LABS: Creatine Kinase 159 U/L (30-135)
[2018-03-26 06:20] LABS: Creatine Kinase MB 0.9 ng/mL (0.0-2.4); Troponin I <0.012 ng/mL (0.000-0.034)
[2018-03-26 06:32] LABS: D-Dimer 1.51 mg/L FEU (<0.60)
[2018-03-26] MEDS ORDERED: RX INFO: IV CONTRAST WAS GIVEN 1 EACH MISC MISCELLANE PRN (06:38)
--- NOTE | 2018-03-26 07:14 | CT ---
EXAMINATION TYPE: CT chest angio for PE DATE OF EXAM: 03/26/2018 COMPARISON: NONE HISTORY: Chest pain, back pain, elevated d dimer CT DLP: 476 mGycm Automated exposure control for dose reduction was used. CONTRAST: CT Chest for pulmonary embolism performed with with IV Contrast, patient injected with 71 mL of Isovu e 370. FINDINGS: There are 3-D post processed images. The lungs are clear of infiltrate. There is no evidence of a pulmonary mass. There is no pleural effu kelsey. There is no pericardial effusion. Heart size is normal. I see no filling defects in the pulmonary arteries. There is no mediastinal adenopathy. There are no hilar masses. The bony thorax is intact. IMPRESSION: Negative exam. No evidence of pulmonary embolism.
--- NOTE | 2018-03-26 08:11 | US ---
EXAMINATION TYPE: US abdomen limited DATE OF EXAM: 03/26/2018 COMPARISON: NONE CLINICAL HISTORY: Pain, attention RUQ. EXAM MEASUREMENTS: Liver Length: 15.6 cm Gallbladder Wall: 0.2 cm CBD: 0..5 cm Right Kidney: 10.0 x 4.9 x 5.0 cm Some limitations due to overlying bowel gas. Pancreas: tail gassed out, visualized portions wnl Liver: Somewhat coarse in echotexture is noted, no focal mass within the liver, no dilated ducts Gallbladder: adherent debris to wall, wall thickness slightly irregular, no mobile stones Evidence for sonographic Hester's sign: no CBD: wnl Right Kidney: wnl There is no ascites. IMPRESSION: There may be tumefactive sludge or stones within the gallbladder, gallbladder appears john paul ewhat contracted. Limited exam. Correlate for possible hepatic steatosis or hepatocellular disease.
[2018-03-26 08:32] VITALS: RESP 16
[2018-03-26 09:23] VITALS: BP 117/56; PULSE 59; TEMP 98.2
== END 2018-03-26 09:23 | disposition home or self-care (01) ==
LOC: EC 04:44
DX: R07.9 Chest pain, unspecified (principal); R10.13 Epigastric pain; R11.0 Nausea; Z79.899 Other long term (current) drug therapy; Z87.891 Personal history of nicotine dependence
CPT/HCPCS: 99285; 36415; 93005; 85379; 80053; 82150; 82550; 82553; 83690; 83735; 84484; 85025; 85610; 85730; 71045; 76705; 71275; Q9967

== ENCOUNTER 2018-04-11 09:18 | Day surgery (SDC) | payer BC, OTHER ==
[2018-04-02 13:38] VITALS: BMI 33.1
[~2018-04-11 09:18] MED LIST: DEXAMETHASONE SOD PHOSPHATE 10 MG/ML 1 ML VIAL IV ONE; LACTATED RINGERS 1,000 ML IV SCH; LIDOCAINE 1% 20 ML VIAL (10MG/ML) FOR IV START INTRADERMA PRN; MIDAZOLAM 2 MG/2 ML VIAL IV PRN; ONDANSETRON 4 MG/2 ML VIAL IVP ONE; SCOPOLAMINE 1.5MG/72HR PATCH TRANSDERM ONE; ceFAZolin IN SWFI 2 GM/20 ML SYRINGE IVP ONE
[2018-04-11] MEDS ORDERED: ROCURONIUM BROMIDE 10 MG/ML 10 ML VIAL IV ONE (11:02)
[2018-04-11] MEDS ORDERED: MIDAZOLAM 2 MG/2 ML VIAL ONE (11:02)
[2018-04-11] MEDS ORDERED: PROPOFOL 10 MG/ML 20 ML VIAL IV ONE (11:02)
[2018-04-11] MEDS ORDERED: KETOROLAC 30 MG/ML 1 ML VIAL ONE (11:02)
[2018-04-11] MEDS ORDERED: GLYCOPYRROLATE 0.2 MG/ML 2 ML VIAL ONE (11:02)
[2018-04-11] MEDS ORDERED: fentaNYL (PF) 50 MCG/ML 2 ML AMP ONE (11:02)
[2018-04-11] MEDS ORDERED: SUCCINYLCHOLINE CHLORIDE 100 MG/5 ML SYR IV ONE (11:02)
[2018-04-11] MEDS ORDERED: NEOSTIGMINE 1 MG/ML 10 ML VIAL ONE (11:02)
[2018-04-11] MEDS ORDERED: LIDOCAINE 1%-EPI 1:100,000 30 ML VIAL SQ ONE ×2 (11:23)
[2018-04-11] MEDS ORDERED: BUPIVACAINE (PF) 0.5% 30 ML VIAL SQ ONE ×2 (11:23)
--- NOTE | 2018-04-11 12:14 | P.OP ---
Date of Procedure: 04/11/18 Preoperative Diagnosis: cholelithiasis, umbilical hernia Postoperative Diagnosis: Same Procedure(s) Performed: Laparoscopic cholecystectomy, umbilical herniorrhaphy Anesthesia: VICKY Surgeon: Tasneem Quevedo Estimated Blood Loss (ml): 10 Pathology: other (Gallbladder) Condition: stable Disposition: PACU Indications for Procedure: The patient presented with cholelithiasis and symptomatic umbilical hernia Description of Procedure: The patient's taken the operative suite where she is prepped and draped in the usual sterile manner under general endotracheal anesthetic. A supraumbilical incision was made. Dissection was carried down to some incarcerated preperitoneal fat and omentum. The fatty tissue is removed with cautery. The peritoneal cavity was entered. A finger sweep was carried out. A balloon trocar was inserted and pneumoperitoneum was established with CO2 gas. Sites are chosen for accessory trochars and these are placed through small skin incisions. The abdominal and pelvic contents were examined and were otherwise unremarkable. The fundus of the gallbladder is grasped and retracted superiorly. Arik's pouch is identified. Its grasped and retracted laterally. The cystic artery and cystic duct were dissected free. They're triply clipped and cut. The gallbladder is then dissected free from the liver bed. Small bleeding points were controlled with electrocautery. The gallbladder is placed into a specimen retrieval bag. It's removed through the umbilical port site. The liver bed is reexamined and noted to be hemostatic. The pneumoperitoneum was released. The trochars were removed. The fascia at the umbilicus was then dissected free from the underlying peritoneum. The peritoneal rent was closed with 0 Vicryl. The preperitoneal space was developed. A small round patch was then placed in the preperitoneal position. It was sutured to the fascia using 0 Vicryl. The skin incisions were then closed with 4-0 Vicryl in a subcuticular manner. Steri-Strips and dressings were applied. She tolerated the procedure without difficulty. She was taken recovery room in satisfactory condition. According to or personnel, all counts were correct. Plan - Discharge Summary New Discharge Prescriptions: New HYDROcodone/APAP 5-325MG [[place] 5-325] 1 - 2 tab PO Q6HR PRN #20 tab PRN Reason: Pain Naproxen [Naprosyn] 500 mg PO Q12HR #60 tab No Action Levonorgestrel-Ethin Estradiol [[place]-28 Tablet] 1 tab PO DAILY Discharge Medication List Levonorgestrel-Ethin Estradiol [[place]-28 Tablet] 1 tab PO DAILY 04/02/18 [ History] HYDROcodone/APAP 5-325MG [[place] 5-325] 1 - 2 tab PO Q6HR PRN #20 tab 04/11/18 [ Rx] Naproxen [Naprosyn] 500 mg PO Q12HR #60 tab 04/11/18 [Rx] Follow up Appointment(s)/Referral(s): Tasneem Quevedo DO [Doctor of Osteopathic Medicine] - 2 Weeks Patient Instructions/Handouts: *Surgery [facility] - Scopalamine Patch Instructions Activity/Diet/Wound Care/Special Instructions: Keep the dressings on until Saturday, they may then be removed and you may shower. No tub baths for 1 week. Remove the small tapes from the skin in 1 week. Ice to the incision for 24-48 hours. Expect some bruising by the bellybutton. Follow a low-fat diet. Call if you develop fever, chills, nausea or vomiting, wound concerns. Discharge Disposition: HOME SELF-CARE
[2018-04-11] MEDS: HYDROmorphone 0.5 MG/0.5 ML SYRINGE IVP PRN ×2 (12:40→13:08)
[2018-04-11 12:55] VITALS: TEMP 97.6
[2018-04-11 14:00] VITALS: RESP 16
[2018-04-11 14:38] VITALS: PULSE 101
[2018-04-11 14:49] VITALS: BP 122/79
== END 2018-04-11 15:31 | disposition home or self-care (01) ==
LOC: OR 09:18
PROVIDERS: ATTEND Surgery
DX: K80.10 Calculus of gallbladder with chronic cholecystitis without obstruction (principal); K42.0 Umbilical hernia with obstruction, without gangrene; Z79.3 Long term (current) use of hormonal contraceptives
CPT/HCPCS: 81025; 88304; 49587; 47562; C1781; J2250; J1100; J2710; J2405; J3010; J1885; J0330; J2704; J1170

== ENCOUNTER 2018-07-31 18:22 | Emergency (ER) | payer BC, OTHER ==
[2018-07-31 18:39] VITALS: BP 118/76; PULSE 71; RESP 18; TEMP 98.1
--- NOTE | 2018-07-31 19:22 | ED ---
ENT HPI - General Chief complaint: ENT Stated complaint: Blood in eye Time Seen by Provider: 07/31/18 18:50 Source: patient, RN notes reviewed Mode of arrival: ambulatory Limitations: no limitations - History of Present Illness Initial comments: This is a 22-year-old female who presents to the emergency department with chief complaint of blood in her eye. Patient states that she had a small area of bleeding in her left eye yesterday. She states that when she woke up this morning the redness had spread. Patient denies any pain. She denies any itchiness. She denies any vision changes, blurred vision, double vision. She denies any fevers or chills, chest pain or shortness breath, headache or dizziness. She states that she is generally healthy. Denies any trauma to the eye. Denies foreign body sensation. - Related Data Home Medications Medication Instructions Recorded Confirmed No Known Home Medications 07/31/18 07/31/18 Allergies Allergy/AdvReac Type Severity Reaction Status Date / Time No Known Allergies Allergy Verified 07/31/18 18:54 Review of Systems ROS Statement: Those systems with pertinent positive or pertinent negative responses have been documented in the HPI. ROS Other: All systems not noted in ROS Statement are negative. Past Medical History Past Medical History: No Reported History History of Any Multi-Drug Resistant Organisms: None Reported Past Surgical History: Cholecystectomy, Hernia Repair, Orthopedic Surgery Additional Past Surgical History / Comment(s): right foot Past Anesthesia/Blood Transfusion Reactions: Family History of Problems w/ Anesthesia, Postoperative Nausea & Vomiting (PONV) Additional Past Anesthesia/Blood Transfusion Reaction / Comment(s): grandma PONV Past Psychological History: No Psychological Hx Reported Smoking Status: Former smoker Past Alcohol Use History: None Reported Past Drug Use History: None Reported - Past Family History Father History Unknown: Yes Family Medical History: No Reported History General Exam - General Exam Comments Initial Comments: General: Awake and alert, well-developed; in no apparent distress. HEENT: Head atraumatic, normocephalic. Pupils are equal, round and reactive to light. Extraocular movements intact. Subconjunctival hemorrhage left eye. Oropharynx moist without erythema or exudate. Neck: Supple. Normal ROM. Cardiovascular: Regular rate and rhythm. No murmurs, rubs or gallops. Chest symmetrical. Respiratory: Lungs clear to auscultation bilaterally. No wheezes, rales or rhonchi. Normal respiratory effort with no use of accessory muscles. Musculoskeletal: Normal ROM, no tenderness bilateral upper and lower extremities. Ambulating normally. Skin: [place], warm and dry without rashes or lesions. Neurological: Alert and oriented x3. CN II-XII grossly intact. Speech is fluent and answers are appropriate. No focal neuro deficits. Psychiatric: Normal mood and affect. No overt signs of depression or anxiety noted. Limitations: no limitations Course Vital Signs 07/31/18 18:35 Temperature 98.1 F Pulse Rate 71 Respiratory 18 Rate Blood Pressure 118/76 O2 Sat by Pulse 98 Oximetry Medical Decision Making - Medical Decision Making This is a 22-year-old female who presents to the emergency department with chief complaint of blood in her eye. Patient has a subconjunctival hemorrhage in the left eye. Denies pain. Denies foreign body sensation. Denies any vision changes. Educated patient that this may take 10-14 days to go away. Return parameters were discussed. Vitals are stable and she is in no acute distress. Patient will be discharged home at this time. She is in agreement and voices understanding. All questions were answered. Disposition Clinical Impression: Subconjunctival hemorrhage of left eye Disposition: HOME SELF-CARE Condition: Good Instructions: Subconjunctival Hemorrhage (ED) Additional Instructions: Please follow up with primary care provider within 1-2 days. Return to emergency department if symptoms should worsen or any concerns arise. Is patient prescribed a controlled substance at d/c from ED?: No Referrals: Ajit Baird III, MD [Primary Care Provider] - 1-2 days Time of Disposition: 19:25
== END 2018-07-31 19:35 | disposition home or self-care (01) ==
LOC: EC 18:22
DX: H11.32 Conjunctival hemorrhage, left eye (principal); Z87.891 Personal history of nicotine dependence
CPT/HCPCS: 99282

== ENCOUNTER 2020-01-18 16:48 | Outpatient (CLI) | payer BC, OTHER ==
[2020-01-18 17:23] VITALS: BP 141/78; PULSE 110; RESP 18; TEMP 98.3
--- NOTE | 2020-01-19 03:43 | P.MSEPDOC ---
Presenting Problems - Arrival Data Date of Arrival on Unit: 01/18/20 Time of Arrival on Unit: 16:48 Mode of Transport: Ambulatory - Complaint OB-Reason for Admission/Chief Complaint: Headache, Other Comment: headache yesterday, swollen feet today. Has history of PIH with previous Medical History - Information : 2 Para: 1 Term: 1 : 0 Abortions: Spontaneous or Elective: 0 Number of Living Children: 1 - Gestational Age Gestational Age by MARY BETH (wks/days): 37 Weeks and 0 Days Review of Systems - Review of Systems Constitutional: No problems Breast: No problems ENT: No problems Cardiovascular: No problems Respiratory: No problems Gastrointestinal: No problems Genitourinary: No problems Musculoskeletal: No problems Neurological: No problems Skin: No problems Vital Signs - Temperature Temperature: 98.3 F Temperature Source: Temporal Artery Scan - Pulse Right Sitting Brachial Pulse Rate: 110 Pulse Assessment Method: Pulse Oximetry - Respirations Respiratory Rate: 18 O2 Sat by Pulse Oximetry: 98 - Blood Pressure Right Arm Sitting Blood Pressure: 141/78 Blood Pressure Mean: 99 Blood Pressure Source: Automatic Cuff Medical Screen Scoring (Pre) - Cervical Exam Dilation: Exam Deferred Effacement: Exam Deferred Membranes: Intact - Uterine Contractions Frequency: N/A Duration: N/A Intensity: N/A - Maternal Vital Signs Maternal Temperature: N/A Maternal Blood Pressure: Systolic >139 = 2 Signs of Preeclampsia: Headache = 1 Maternal Respirations: N/A - Maternal Trauma Maternal Trauma: N/A - Assessment - Baby A Baseline FHR: 135 Heart Rate - NICHD Category: Category I (Normal) = 0 NST: Reactive Position: N/A Station: N/A - Total Score - Baby A Total Score - Baby A: 3 - Total Score - Baby B Total Score - Baby B: 3 - Total Score - Baby C Total Score - Baby C: 3 - Level of Risk - Baby A Level of Risk - Baby A: Low (0-5) - Level of Risk - Baby B Level of Risk - Baby B: Low (0-5) - Level of Risk - Baby C Level of Risk - Baby C: Low (0-5) Physician Notification (Pre) - Physician Notified Physician Notified Date: 01/18/20 Physician Notified Time: 17:13 New Order Received: Yes Disposition - Disposition OB Disposition: Physician follow up in office, Discharge to home, Written follow up instructions reviewed Discharge Date: 01/18/20 Discharge Time: 17:17 I agree with the RN Medical Screening Exam: Yes Risk & Benefit of care provided described in d/c instruction: Yes Diagnosis: RELATED CONDITIONS, UNSPECIFIED, THIRD TRIMESTER Additional Diagnoses: O26.93
== END 2020-01-18 17:17 | disposition home or self-care (01) ==
LOC: FBPOP 16:48
PROVIDERS: ATTEND Obstetrics & Gynecology
DX: O26.93 Pregnancy related conditions, unspecified, third trimester (principal); R51 Headache; M79.89 Other specified soft tissue disorders; Z87.59 Personal history of other complications of pregnancy, childbirth and the puerperium; Z3A.37 37 weeks gestation of pregnancy
CPT/HCPCS: 59025; 99213

== ENCOUNTER 2020-01-22 11:16 | Outpatient (CLI) | payer BC, OTHER ==
[2020-01-22 13:19] LABS: Appearance,Urine Cloudy (Clear); Bacteria,Urine Occasional /hpf; Bilirubin,Urine Negative (Negative); Blood,Urine Negative (Negative); Color,Urine Yellow; Glucose,Urine (UA) Negative (Negative); Ketones,Urine 1+ (Negative); Leukocyte Esterase,Urine Small (Negative); Mucus,Urine Moderate /hpf; Nitrite,Urine Negative (Negative); Protein,Urine 1+ (Negative); RBC,Urine <1 /hpf (0-5); Specific Gravity,Urine 1.027 (1.001-1.035); Squamous Epithelial Cell,Urine 3 /hpf (0-4); WBC,Urine 3 /hpf (0-5)
[2020-01-22] MEDS: DEXTROSE 5%-LACTATED RINGERS 1,000 ML IV SCH ×2 (14:19→15:54)
[2020-01-22 15:15] VITALS: TEMP 98.7
[2020-01-22] MEDS ORDERED: ACETAMINOPHEN TAB 500 MG TAB PO STA (15:25)
[2020-01-22] MEDS ORDERED: DEXTROSE 5%-LACTATED RINGERS 1,000 ML IV SCH (16:00)
[2020-01-22 16:44] LABS: Uric Acid 3.7 mg/dL (3.7-7.4)
[2020-01-22 17:01] LABS: T4, Free (Free Thyroxine) 0.99 ng/dL (0.78-2.19)
[2020-01-22 17:31] VITALS: BP 115/70; PULSE 120; RESP 18
--- NOTE | 2020-02-04 09:55 | P.MSEPDOC ---
Presenting Problems - Arrival Data Date of Arrival on Unit: 01/22/20 Time of Arrival on Unit: 11:30 Mode of Transport: Wheelchair - Complaint OB-Reason for Admission/Chief Complaint: Rule Out SROM Medical History - Information : 2 Para: 1 Term: 1 : 0 Abortions: Spontaneous or Elective: 0 Number of Living Children: 1 - Gestational Age Gestational Age by MARY BETH (wks/days): 37 Weeks and 4 Days - History Comment: lost mucus plug last night. n/v this am x1 Review of Systems - Review of Systems Constitutional: No problems Breast: No problems ENT: No problems Cardiovascular: No problems Respiratory: No problems Gastrointestinal: No problems Genitourinary: No problems Musculoskeletal: No problems Neurological: No problems Skin: No problems Comment: hx of pih with first preg. Vital Signs - Temperature Temperature: 98.7 F Temperature Source: Temporal Artery Scan - Pulse Right Radial Pulse Rate: 120 Pulse Assessment Method: Pulse Oximetry - Respirations Respiratory Rate: 18 Oxygen Delivery Method: Room Air O2 Sat by Pulse Oximetry: 98 - Blood Pressure Right Arm Blood Pressure: 115/70 Blood Pressure Mean: 85 Blood Pressure Source: Automatic Cuff Medical Screen Scoring (Pre) - Cervical Exam Dilation: 0 cm = 0 Effacement: Exam Deferred Membranes: Intact - Uterine Contractions Frequency: > 5 minutes apart = 1 Duration: N/A Intensity: N/A - Maternal Vital Signs Maternal Temperature: N/A Maternal Blood Pressure: N/A Signs of Preeclampsia: Headache = 1 Maternal Respirations: N/A - Maternal Trauma Maternal Trauma: N/A - Assessment - Baby A Baseline FHR: 140 Heart Rate - NICHD Category: Category I (Normal) = 0 NST: Reactive Position: N/A Station: N/A - Total Score - Baby A Total Score - Baby A: 2 - Total Score - Baby B Total Score - Baby B: 2 - Total Score - Baby C Total Score - Baby C: 2 - Level of Risk - Baby A Level of Risk - Baby A: Low (0-5) - Level of Risk - Baby B Level of Risk - Baby B: Low (0-5) - Level of Risk - Baby C Level of Risk - Baby C: Low (0-5) Physician Notification (Pre) - Physician Notified Spoke With: prakash New Order Received: Yes - Notification Comment Comment: home. rest and hydration this weekend. to call Tulio in the office on Saturday for appt r/t thyroid. Medical Screen Scoring (Post) - Cervical Exam Dilation: Exam Deferred Effacement: Exam Deferred Membranes: Intact - Uterine Contractions Frequency: N/A Duration: N/A Intensity: N/A - Maternal Vital Signs Maternal Temperature: N/A Maternal Blood Pressure: N/A Signs of Preeclampsia: N/A Maternal Respirations: N/A - Pain Assessment Pain Scale Used: Numeric (1 - 10) Pain Intensity: 3 - Maternal Trauma Maternal Trauma: N/A - Assessment - Baby A Heart Rate: 135 Heart Rate - NICHD Category: Category I (Normal) = 0 NST: Reactive Position: N/A Station: N/A - Total Score Total Score - Baby A: 0 Total Score - Baby B: 0 Total Score - Baby C: 0 - Post Treatment Level of Risk Post Treatment Level of Risk - Baby A: Low (0-5) Post Treatment Level of Risk - Baby B: Low (0-5) Post Treatment Level of Risk - Baby C: Low (0-5) Physician Notification (Post) - Physician Notified Physician Notified Date: 01/22/20 Physician Notified Time: 17:30 Physician/Practitioner Notified:: prakash Spoke With: prakash New Order Received: Yes - Notification Comment Comment: discharge hoem. to call saturday for appt with tulio r/t thyroid evalu. dr randall will be at office on saturday as well for eval. Disposition - Disposition OB Disposition: Physician follow up in office, Discharge to home Discharge Date: 01/22/20 Discharge Time: 17:30 I agree with the RN Medical Screening Exam: Yes Risk & Benefit of care provided described in d/c instruction: Yes Diagnosis: FALSE LABOR AT OR AFTER 37 COMPLETED WEEKS OF GESTATION
== END 2020-01-22 17:40 | disposition home or self-care (01) ==
LOC: FBPOP 11:16
PROVIDERS: ATTEND Obstetrics & Gynecology
DX: O47.1 False labor at or after 37 completed weeks of gestation (principal); Z3A.37 37 weeks gestation of pregnancy
CPT/HCPCS: 81001; 84439; 84443; 84450; 84460; 84550

== ENCOUNTER 2020-01-23 19:02 | Outpatient (CLI) | payer BC, OTHER ==
[2020-01-23 20:10] LABS: Appearance,Urine Cloudy (Clear); Bacteria,Urine Moderate /hpf; Bilirubin,Urine Negative (Negative); Blood,Urine Negative (Negative); Color,Urine Yellow; Glucose,Urine (UA) Negative (Negative); Hyaline Casts,Urine 1 /lpf (0-2); Ketones,Urine Negative (Negative); Leukocyte Esterase,Urine Moderate (Negative); Mucus,Urine Few /hpf; Nitrite,Urine Negative (Negative); PH, Urine 6.5 (5.0-8.0); Protein,Urine Trace (Negative); Specific Gravity,Urine 1.018 (1.001-1.035); Squamous Epithelial Cell,Urine 4 /hpf (0-4); WBC,Urine 3 /hpf (0-5)
[2020-01-23 20:20] LABS: Protein/Creatinine Ratio,Urine 0.134
[2020-01-23 20:21] LABS: Basophils % (A) 0 %; Eosinophils # (A) 0.2 k/uL (0-0.7); Eosinophils % (A) 2 %; HCT 38.1 % (34.0-46.0); HGB 12.7 gm/dL (11.4-16.0); Lymphocytes # (A) 1.4 k/uL (1.0-4.8); Lymphocytes % (A) 14 %; MCH 29.3 pg (25.0-35.0); MCHC 33.2 g/dL (31.0-37.0); MCV 88.1 fL (80.0-100.0); Mean Platelet Volume 8.6; Monocytes # (A) 0.7 k/uL (0-1.0); Monocytes % (A) 8 %; Neutrophils # (A) 7.1 k/uL (1.3-7.7); Neutrophils % (A) 74 %; Platelet Count 311 k/uL (150-450); RBC 4.32 m/uL (3.80-5.40); RDW 13.2 % (11.5-15.5); WBC 9.5 k/uL (3.8-10.6)
[2020-01-23 20:28] LABS: Uric Acid 3.1 mg/dL (3.7-7.4)
[2020-01-23 22:40] VITALS: BP 138/95; PULSE 106; RESP 16; TEMP 98.6
--- NOTE | 2020-03-20 07:43 | P.MSEPDOC ---
Presenting Problems - Arrival Data Date of Arrival on Unit: 01/23/20 Time of Arrival on Unit: 19:02 Mode of Transport: Ambulatory - Complaint OB-Reason for Admission/Chief Complaint: Other Comment: chest pressure and shortness of breath Medical History - Information : 2 Para: 1 Term: 1 : 0 Abortions: Spontaneous or Elective: 0 Number of Living Children: 1 - Gestational Age Gestational Age by MARY BETH (wks/days): 37 Weeks and 5 Days - History Comment: pt had PIH with first Review of Systems - Review of Systems Constitutional: No problems Breast: No problems ENT: No problems Cardiovascular: No problems Respiratory: No problems Gastrointestinal: No problems Genitourinary: No problems Musculoskeletal: No problems Neurological: No problems Skin: No problems Comment: chest pressure, not painful Vital Signs - Temperature Temperature: 98.6 F Temperature Source: Oral - Pulse Right Sitting Brachial Pulse Rate: 106 Pulse Assessment Method: Automatic Cuff - Respirations Respiratory Rate: 16 Oxygen Delivery Method: Room Air O2 Sat by Pulse Oximetry: 97 - Blood Pressure Right Arm Sitting Blood Pressure: 138/95 Blood Pressure Mean: 109 Blood Pressure Source: Automatic Cuff Medical Screen Scoring (Pre) - Cervical Exam Dilation: Exam Deferred Effacement: Exam Deferred Membranes: Intact - Uterine Contractions Frequency: > 5 minutes apart = 1 Duration: N/A Intensity: N/A - Maternal Vital Signs Maternal Temperature: N/A Maternal Blood Pressure: N/A Signs of Preeclampsia: N/A Maternal Respirations: N/A - Maternal Trauma Maternal Trauma: N/A - Assessment - Baby A Baseline FHR: 135 Heart Rate - NICHD Category: Category I (Normal) = 0 NST: Reactive - Total Score - Baby A Total Score - Baby A: 1 - Total Score - Baby B Total Score - Baby B: 1 - Total Score - Baby C Total Score - Baby C: 1 - Level of Risk - Baby A Level of Risk - Baby A: Low (0-5) - Level of Risk - Baby B Level of Risk - Baby B: Low (0-5) - Level of Risk - Baby C Level of Risk - Baby C: Low (0-5) Physician Notification (Pre) - Physician Notified Physician Notified Date: 01/23/20 Physician Notified Time: 19:38 New Order Received: Yes - Notification Comment Comment: PIH LABS, URINE, LACTIC ACID, D DIMER, CBC, 12 LEAD EKG ORDERED. Disposition - Disposition OB Disposition: Discharge to home, Written follow up instructions reviewed Discharge Date: 01/23/20 Discharge Time: 21:55 I agree with the RN Medical Screening Exam: No Physician's MSE Comment: Inadequate documentation Risk & Benefit of care provided described in d/c instruction: No Diagnosis: Chest pain in
== END 2020-01-23 21:55 | disposition home or self-care (01) ==
LOC: FBPOP 19:02
PROVIDERS: ATTEND Obstetrics & Gynecology
DX: O99.89 Other specified diseases and conditions complicating pregnancy, childbirth and the puerperium (principal); R07.9 Chest pain, unspecified; Z3A.37 37 weeks gestation of pregnancy
CPT/HCPCS: 59025; 81001; 82570; 83605; 84156; 84450; 84460; 84550; 85025; 85379; 99213

== ENCOUNTER 2020-01-29 04:00 | Inpatient (IN) | payer BC, OTHER ==
[2020-01-29] MEDS ORDERED: CARBOPROST TROMETHAMINE 250 MCG/ML 1 ML AMP IM PRN (04:26)
[2020-01-29] MEDS ORDERED: TERBUTALINE 1 MG/ML VIAL SQ PRN (04:26)
[2020-01-29] MEDS ORDERED: LIDOCAINE 0.5% (PF) 5 MG/ML (50 ML SDV) SQ PRN (04:26)
[2020-01-29] MEDS ORDERED: METHYLERGONOVINE 0.2 MG/ML 1 ML AMP IM PRN (04:26)
[2020-01-29] MEDS ORDERED: OXYTOCIN 10 UNIT/ML 1 ML VIAL IM PRN (04:26)
[2020-01-29] MEDS ORDERED: LACTATED RINGERS 1,000 ML IV SCH ×2 (04:30)
[2020-01-29] MEDS ORDERED: OXYTOCIN 30 UNITS/500 ML NS 30 UNIT in SALINE 1 500ML.BAG IV SCH (04:30)
--- NOTE | 2020-01-29 05:28 | P.HPOB ---
History of Present Illness H&P Date: 01/29/20 Chief Complaint: IUP at 38 and 4/sevenths weeks, active labor This is a 24-year-old 2 para 1001 at 38-4/7 weeks with an estimated due date of 02/08/2020. Patient states she began eduardo around 1 AM this morning. Patient presented and was noted to be 7 cm. Patient has been receiving routine care since the first trimester which has been essentially uncomplicated. Patient is a prior history of hypertension in and a baby aspirin was started at 15 weeks for this. Patient has had normal blood pressures throughout this . Patient notes good movement she denies loss of fluid. On blood work she has a blood type of A+, rubella immune, RPR nonreactive, hep Puja surface engine negative, HIV negative, group beta strep negative. Review of Systems Constitutional: Denies fatigue, Denies fever Ears, nose, mouth and throat: Denies headache Cardiovascular: Reports leg edema Respiratory: Denies dyspnea Gastrointestinal: Denies nausea, Denies vomiting Genitourinary: Reports Past Medical History Past Medical History: No Reported History History of Any Multi-Drug Resistant Organisms: None Reported Past Surgical History: Cholecystectomy, Hernia Repair, Orthopedic Surgery Additional Past Surgical History / Comment(s): right foot Past Anesthesia/Blood Transfusion Reactions: Family History of Problems w/ A nesthesia, Postoperative Nausea & Vomiting (PONV) Additional Past Anesthesia/Blood Transfusion Reaction / Comment(s): grandma PONV Past Psychological History: No Psychological Hx Reported Smoking Status: Never smoker Past Alcohol Use History: None Reported Additional Past Alcohol Use History / Comment(s): smoked 1 year <1ppd quit 2013 Past Drug Use History: None Reported - Past Family History Father History Unknown: Yes Family Medical History: No Reported History Medications and Allergies Home Medications Medication Instructions Recorded Confirmed Type Aspirin/Omeprazole 1 tab PO DAILY 01/29/20 01/29/20 History [Aspirin-Omeprazole Dr 81-40 mg] Allergies Allergy/AdvReac Type Severity Reaction Status Date / Time No Known Allergies Allergy Verified 01/29/20 04:05 Exam Osteopathic Statement: *. No significant issues noted on an osteopathic structural exam other than those noted in the History and Physical/Consult. Vital Signs Temp Pulse Resp BP Pulse Ox 01/29/20 04:23 97 F L 114 H 16 129/82 97 01/29/20 04:16 97 F L 114 H 16 129/82 97 Intake and Output 01/28/20 01/28/20 01/29/20 14:59 22:59 06:59 Other: Weight 104.78 kg Targeted physical exam is performed and state in general this a well-nourished well-developed female in obvious labor. Nonlabored breathing, heart has a regular rate and rhythm, abdomen is gravid and appropriate for gestational age, on cervical exam she is amniotomy is performed and clear fluid was obtained. heart tones are be category 1 and she is eduardo but they are not graphing well. Assessment and Plan (1) Term Current Visit: Yes Status: Acute Code(s): Z34.90 - ENCNTR FOR SUPRVSN OF NORMAL , UNSP, UNSP TRIMESTER SNOMED Code(s): 22727934 (2) Active labor Current Visit: Yes Status: Acute Code(s): FEH8207 - SNOMED Code(s): 154495994 Plan: Patient is admitted to labor and delivery for anticipation of spontaneous vaginal delivery.
[2020-01-29 05:50] LABS: Basophils % (A) 0 %; Eosinophils # (A) 0.1 k/uL (0-0.7); Eosinophils % (A) 1 %; HCT 41.8 % (34.0-46.0); HGB 13.7 gm/dL (11.4-16.0); Lymphocytes # (A) 2.3 k/uL (1.0-4.8); Lymphocytes % (A) 18 %; MCH 29.4 pg (25.0-35.0); MCHC 32.8 g/dL (31.0-37.0); MCV 89.7 fL (80.0-100.0); Mean Platelet Volume 9.1; Monocytes # (A) 0.7 k/uL (0-1.0); Monocytes % (A) 6 %; Neutrophils # (A) 9.5 k/uL (1.3-7.7); Neutrophils % (A) 74 %; Platelet Count 319 k/uL (150-450); RBC 4.66 m/uL (3.80-5.40); RDW 13.6 % (11.5-15.5); WBC 12.9 k/uL (3.8-10.6)
[2020-01-29] MEDS ORDERED: LANOLIN CREAM 5 GM TUBE TOPICAL PRN (06:32)
[2020-01-29] MEDS ORDERED: BENZOCAINE/MENTHOL SPRAY 1 GM/SPRAY AEROSOL TOPICAL PRN (06:32)
[2020-01-29] MEDS ORDERED: WITCH HAZEL 1 EACH MED..PAD TOPICAL PRN (06:32)
[2020-01-29] MEDS ORDERED: SIMETHICONE 80 MG CHEWABLE PO PRN (06:32)
[2020-01-29] MEDS ORDERED: diphenhydrAMINE 25 MG CAP PO PRN (06:32)
[2020-01-29] MEDS ORDERED: HYDROcodone/APAP 5-325MG 1 EACH TAB PO PRN (06:32)
[2020-01-29] MEDS ORDERED: HYDROCORTISONE 2.5% RECTAL CREAM 30 GM TUBE RECTAL PRN (06:32)
[2020-01-29] MEDS ORDERED: diphenhydrAMINE 50 MG/ML 1 ML VIAL IVP PRN ×2 (06:32)
[2020-01-29] MEDS ORDERED: ACETAMINOPHEN TAB 325 MG TAB PO PRN (06:32)
[2020-01-29] MEDS ORDERED: IBUPROFEN 600 MG TAB PO PRN (06:32)
[2020-01-29] MEDS ORDERED: diphenhydrAMINE 50 MG CAP PO PRN (06:32)
[2020-01-29] MEDS ORDERED: ZOLPIDEM 5 MG TAB PO PRN (06:32)
--- NOTE | 2020-01-29 06:32 | P.PROBDLV ---
Vaginal Delivery Note - . Vaginal Delivery Note: This is a 24-year-old 2 para 1001 at 38-4/7 weeks that presented to labor and delivery with complaints of regular painful contractions. Patient was noted to be 7 cm on admission. Patient was admitted and taken to a labor suite. Patient underwent amniotomy and clear fluid was obtained. Patient progressed to complete began pushing and had a normal spontaneous vaginal delivery of a viable male at 606, weight of 8 pounds 2.9 ounces. After a two-minute delayed the umbilical cord was doubly clamped and cut. The placenta was delivered spontaneously intact with a three-vessel cord being noted. The uterus is noted be firm and below the umbilicus. On inspection the patient's vaginal vault a first-degree vaginal laceration was noted and repaired with 3-0 repeat in the usual fashion. A rectal exam was performed and found to be normal in nature. Patient and tolerated delivery well and are resting comfortably. Estimated blood loss 100 mL.
[2020-01-29] MEDS ORDERED: OXYTOCIN 20 UNITS/1000 ML NS 1,000 ML IV SCH (06:45)
[2020-01-29] MEDS ORDERED: IBUPROFEN IV 800 MG in SODIUM CHLORIDE 0.9% 250 ML IV ONE (06:45)
[2020-01-29] MEDS: SENNOSIDES-DOCUSATE SODIUM 1 EACH TAB PO SCH ×2 (08:25→21:41)
[2020-01-29 23:53] VITALS: RESP 16
[2020-01-30 07:23] LABS: Basophils % (A) 0 %; Eosinophils # (A) 0.1 k/uL (0-0.7); Eosinophils % (A) 1 %; HCT 35.2 % (34.0-46.0); HGB 11.3 gm/dL (11.4-16.0); Lymphocytes # (A) 2.3 k/uL (1.0-4.8); Lymphocytes % (A) 19 %; MCHC 32.2 g/dL (31.0-37.0); MCV 90.2 fL (80.0-100.0); Mean Platelet Volume 8.7; Monocytes # (A) 0.8 k/uL (0-1.0); Monocytes % (A) 6 %; Neutrophils # (A) 8.9 k/uL (1.3-7.7); Neutrophils % (A) 72 %; Platelet Count 283 k/uL (150-450); RBC 3.91 m/uL (3.80-5.40); RDW 13.6 % (11.5-15.5); WBC 12.5 k/uL (3.8-10.6)
[2020-01-30 08:48] VITALS: BP 123/79; PULSE 79; TEMP 98.4
[2020-01-30] MEDS: SENNOSIDES-DOCUSATE SODIUM 1 EACH TAB PO SCH (08:50)
--- NOTE | 2020-01-30 10:21 | P.DS ---
Providers Date of admission: 01/29/20 04:19 Expected date of discharge: 01/30/20 Attending physician: Dianna Quintero Primary care physician: Stated None - Discharge Diagnosis(es) (1) Normal spontaneous vaginal delivery Current Visit: Yes Status: Acute Hospital Course: The patient is a 24-year-old 2 para 1001 admitted at 38-4/7 weeks by good dating parameters. She is admitted in active labor with all signs reassuring. Her has been uncomplicated and group B strep status is negative. On labor and delivery, she underwent artificial rupture of membranes for clear fluid and then progressed fairly quickly to complete. She then pushed to a normal spontaneous vaginal delivery of a viable 8 lbs. 3 oz. baby boy with Apgars of 9 at 1 minute and 9 at 5 minutes. Her course was unremarkable vital signs remaining stable and her temperature was afebrile throughout. She was deemed stable for discharge on day #1 was dis charged home to follow-up in the office in 6 weeks' time routinely. Discharge instructions included calling for any significantly increased bleeding or foul- smelling lochia, significantly increased fever abdominal pain, perineal complaints, breast complaints, or anything else that concerned her. She was additionally instructed to have nothing in the vagina for at least 6 weeks time to include intercourse. She understood her instructions and agrees to follow up as noted above. Discharge medications included [id number] analgesic pain medications as well as continued vitamins as she has opted to breast- feed. Maternal blood type is A+ and rubella status is immune. Procedures: #1. Artificial rupture of membranes #2. Normal spontaneous vaginal delivery #3. Repair of first degree perineal laceration Patient Condition at Discharge: Good Plan - Discharge Summary New Discharge Prescriptions: No Action Aspirin/Omeprazole [Aspirin-Omeprazole Dr 81-40 mg] 1 tab PO DAILY Discharge Medication List Aspirin/Omeprazole [Aspirin-Omeprazole Dr 81-40 mg] 1 tab PO DAILY 01/29/20 [History] Follow up Appointment(s)/Referral(s): Dianna Quintero MD [STAFF PHYSICIAN] - 6 Weeks Discharge Disposition: HOME SELF-CARE
== END 2020-01-30 12:33 | disposition home or self-care (01) | DRG 807 ==
LOC: FBPOP 04:00 → 4FBP 04:19
PROVIDERS: ADMIT Obstetrics & Gynecology Obstetrics; ATTEND Obstetrics & Gynecology
PROC: 10E0XZZ Delivery of Products of Conception, External Approach (ICD-10-PCS; principal; 2020-01-29)
PROC: 0HQ9XZZ Repair Perineum Skin, External Approach (ICD-10-PCS; principal; 2020-01-29)
DX: O70.0 First degree perineal laceration during delivery (principal); Z37.0 Single live birth; Z3A.38 38 weeks gestation of pregnancy; Z79.82 Long term (current) use of aspirin; Z90.49 Acquired absence of other specified parts of digestive tract; Z87.891 Personal history of nicotine dependence
CPT/HCPCS: 59025; 85025; 86850; 86900; 86901; 99213

== ENCOUNTER 2022-07-21 19:17 | Emergency (ER) | payer BC, OTHER ==
--- NOTE | 2022-07-21 20:46 | XR ---
EXAMINATION TYPE: XR chest 2V DATE OF EXAM: 07/21/2022 COMPARISON: NONE HISTORY: Chest pain TECHNIQUE: FINDINGS: Heart and mediastinum are normal. Lungs are clear. Diaphragm is intact. There is no pleural effusion. There is slight elevated left diaphragm that could relate to partial paralysis. Bony thora x is intact IMPRESSION: No active cardiopulmonary disease. Normal heart.
--- NOTE | 2022-07-21 21:23 | ED ---
SOB HPI - General Chief Complaint: Shortness of Breath Stated Complaint: chest pains,fever Time Seen by Provider: 07/21/22 21:20 Source: patient, family, RN notes reviewed, old records reviewed Mode of arrival: wheelchair Limitations: no limitations - History of Present Illness Initial Comments: This is a 26-year-old female to the emergency department for evaluation she presents today for evaluation regards to cough congestion and chest pain. Patient also has had fever. Sore throat. Patient did have concern for coronavirus. No history of asthma and difficulty breathing in the past. No recent travel history or sick contacts. MD Complaint: chest pain (Sore throat), anxiety -: days(s) Severity: moderate Severity scale (1-10): 4 Quality: aching Consistency: constant Improves With: nothing Worsens With: nothing Context: recent URI Associated Symptoms: denies other symptoms Treatments Prior to Arrival: none - Related Data Home Medications Medication Instructions Recorded Confirmed Aspirin/Omeprazole 1 tab PO DAILY 01/29/20 01/29/20 [Aspirin-Omeprazole Dr 81-40 mg] Allergies Allergy/AdvReac Type Severity Reaction Status Date / Time No Known Allergies Allergy Verified 07/21/22 19:47 Review of Systems ROS Statement: Those systems with pertinent positive or pertinent negative responses have been documented in the HPI. ROS Other: All systems not noted in ROS Statement are negative. Past Medical History Past Medical History: No Reported History History of Any Multi-Drug Resistant Organisms: None Reported Past Surgical History: Cholecystectomy, Hernia Repair, Orthopedic Surgery Additional Past Surgical History / Comment(s): right foot Past Anesthesia/Blood Transfusion Reactions: Family History of Problems w/ Anesthesia, Postoperative Nausea & Vomiting (PONV) Additional Past Anesthesia/Blood Transfusion Reaction / Comment(s): grandma PONV Past Psychological History: No Psychological Hx Reported Smoking Status: Vaper Past Alcohol Use History: None Reported Past Drug Use History: None Reported - Past Family History Father History Unknown: Yes Family Medical History: No Reported History General Exam Limitations: no limitations General appearance: alert, in no apparent distress, anxious Head exam: Present: atraumatic, normocephalic, normal inspection Eye exam: Present: normal appearance, PERRL, EOMI. Absent: scleral icterus, conjunctival injection, periorbital swelling ENT exam: Present: normal exam, mucous membranes moist. Absent: normal oropharynx (Patient does have significant erythematous and swollen pharynx with edema) Neck exam: Present: normal inspection. Absent: tenderness, meningismus, lymphadenopathy Respiratory exam: Present: normal lung sounds bilaterally. Absent: respiratory distress, wheezes, rales, rhonchi, stridor Cardiovascular Exam: Present: normal rhythm, tachycardia, normal heart sounds. Absent: systolic murmur, diastolic murmur, rubs, gallop, clicks GI/Abdominal exam: Present: soft, normal bowel sounds. Absent: distended, tenderness, guarding, rebound, rigid Extremities exam: Present: normal inspection, full ROM, normal capillary refill. Absent: tenderness, pedal edema, joint swelling, calf tenderness Back exam: Present: normal inspection Neurological exam: Present: alert, oriented X3, CN II-XII intact Psychiatric exam: Present: normal affect, normal mood Skin exam: Present: warm, dry, intact, normal color. Absent: rash Course Vital Signs 07/21/22 07/21/22 07/21/22 19:42 22:06 22:08 Temperature 99.9 F H 102 F H Pulse Rate 115 H 118 H 127 H Respiratory 22 18 Rate Blood Pressure 146/89 119/89 O2 Sat by Pulse 97 98 Oximetry 07/21/22 22:16 Temperature Pulse Rate 118 H Respiratory Rate Blood Pressure O2 Sat by Pulse Oximetry - Reevaluation(s) Reevaluation #1: 07/21/22 22:57 Medical record is reviewed Reevaluation #2: 07/21/22 22:57 Patient symptoms are improved Reevaluation #3: 07/21/22 22:57 Patient informed results questions are answered Medical Decision Making - Medical Decision Making 26 female to the emergency department for evaluation of fever and chest pain. Patient is negative for fluid coronavirus is she has body aches as well. She also has sore throat clinically indicative of strep throat. We'll replace antibiotics and fever control can be discharged home - Lab Data Lab Results 07/21/22 07/21/22 Range/Units 19:48 22:06 Coronavirus (PCR) Not Detected (Not Detectd) Influenza Type A RNA Not Detected (Not Detectd) Influenza Type B (PCR) Not Detected (Not Detectd) - EKG Data -: EKG Interpreted by Me (EG shows sinus tachycardia 113 OH 160 QRS 80 QTC 360) - Radiology Data Radiology results: report reviewed (Chest x-rays negative for acute disease), image reviewed Disposition Clinical Impression: Fever, Strep throat Disposition: HOME SELF-CARE Condition: Good Instructions (If sedation given, give patient instructions): Strep Throat (ED) Is patient prescribed a controlled substance at d/c from ED?: No Referrals: Omar Lenz MD [Primary Care Provider] - 1-2 days Time of Disposition: 23:00
[2022-07-21] MEDS ORDERED: ACETAMINOPHEN TAB 500 MG TAB PO STA (21:48)
[2022-07-21] MEDS ORDERED: DEXAMETHASONE SOD PHOSPHATE 10 MG/ML 1 ML VIAL IM STA (21:48)
[2022-07-21] MEDS ORDERED: IPRATROPIUM-ALBUTEROL 3 ML NEB INHALATION STA (21:48)
[2022-07-21] MEDS ORDERED: IBUPROFEN 800 MG TAB PO STA (21:48)
[2022-07-21] MEDS ORDERED: AZITHROMYCIN 500 MG TAB PO STA (23:01)
[2022-07-21 23:03] VITALS: BP 119/82; PULSE 129; RESP 16; TEMP 102.2
== END 2022-07-21 23:13 | disposition home or self-care (01) ==
LOC: EC 19:17
DX: J02.0 Streptococcal pharyngitis (principal); R50.9 Fever, unspecified; F17.209 Nicotine dependence, unspecified, with unspecified nicotine-induced disorders; Z20.822 Contact with and (suspected) exposure to COVID-19
CPT/HCPCS: 94640; 93005; 87502; 87635; 71046; 99285; 96372; J1100

== ENCOUNTER 2023-03-27 12:01 | Emergency (ER) | payer OTHER ==
[2023-03-27 13:17] VITALS: RESP 20
[2023-03-27] MEDS ORDERED: ONDANSETRON ODT 4 MG TAB PO STA (13:17)
[2023-03-27] MEDS ORDERED: ACETAMINOPHEN TAB 500 MG TAB PO STA (13:17)
--- NOTE | 2023-03-27 13:37 | ED ---
Fever HPI - General Source: patient, RN notes reviewed Mode of arrival: wheelchair Limitations: no limitations <Kt Alaniz - Last Filed: 03/27/23 13:18> - General Source: patient, RN notes reviewed Limitations: no limitations <Carly Drake - Last Filed: 03/27/23 19:30> - General Chief Complaint: Fever Stated Complaint: fever, NVD Time Seen by Provider: 03/27/23 13:18 - History of Present Illness Initial Comments: 27-year-old female presents emergency Department with chief complaint of fever, nausea vomiting. Patient states that 10 minutes and the symptoms. Patient went of bodyaches, nausea vomiting diarrhea. Patient has no localized abdominal pain. (Kt Alaniz) 27 year old female presents emergency Department with chief complaint of nausea and vomiting is a 0600 this morning. Patient states that she woke up and started vomiting multiple times. She also reports diarrhea. She states that she has diffuse abdominal pain with no localization. Patient states that she is does not feel well. She endorses sick contacts including her cousin who she was with 2 days ago which had vomiting and diarrhea as well. Denies localized abdominal pain. Denies cough, sore throat. Denies shortness of breath. She is tolerating oral fluids. Patient states she is otherwise healthy and takes no medications. (Carly Drake) - Related Data Home Medications Medication Instructions Recorded Confirmed Aspirin/Omeprazole 1 tab PO DAILY 01/29/20 01/29/20 [Aspirin-Omeprazole Dr 81-40 mg] Previous Rx's Medication Instructions Recorded Azithromycin [Zithromax] 500 mg PO DAILY #5 tab 07/21/22 Allergies Allergy/AdvReac Type Severity Reaction Status Date / Time No Known Allergies Allergy Verified 03/27/23 13:16 Review of Systems ROS Other: All systems not noted in ROS Statement are negative. <Kt Alaniz - Last Filed: 03/27/23 13:18> ROS Other: All systems not noted in ROS Statement are negative. <Carly Drake - Last Filed: 03/27/23 19:30> ROS Statement: Those systems with pertinent positive or pertinent negative responses have been documented in the HPI. Past Medical History Past Medical History: No Reported History History of Any Multi-Drug Resistant Organisms: None Reported Past Surgical History: Cholecystectomy, Hernia Repair, Orthopedic Surgery Additional Past Surgical History / Comment(s): right foot Past Anesthesia/Blood Transfusion Reactions: Family History of Problems w/ Anesthesia, Postoperative Nausea & Vomiting (PONV) Additional Past Anesthesia/Blood Transfusion Reaction / Comment(s): grandma PONV Past Psychological History: No Psychological Hx Reported Smoking Status: Vaper Past Alcohol Use History: None Reported Past Drug Use History: None Reported - Past Family History Father History Unknown: Yes Family Medical History: No Reported History <Kt Alaniz - Last Filed: 03/27/23 13:18> General Exam Limitations: no limitations <Kt Alaniz - Last Filed: 03/27/23 13:18> General appearance: alert, in no apparent distress Head exam: Present: atraumatic, normocephalic, normal inspection Eye exam: Present: normal appearance ENT exam: Present: normal oropharynx, mucous membranes dry Neck exam: Present: normal inspection. Absent: tenderness, meningismus, lymphadenopathy Respiratory exam: Present: normal lung sounds bilaterally. Absent: respiratory distress, wheezes, rales, rhonchi, stridor Cardiovascular Exam: Present: regular rate, normal rhythm, normal heart sounds. Absent: systolic murmur, diastolic murmur, rubs, gallop, clicks <Carly Drake - Last Filed: 03/27/23 19:30> - General Exam Comments Initial Comments: Visual Physical Exam Vital signs reviewed General: Well-appearing, nontoxic, no acute distress. Head: Normocephalic, atraumatic Eyes: PERRLA, EOMI ENT: Airway patent Chest: Nonlabored breathing Skin: No visual rash, normal skin tone Neuro: Alert and oriented 3 Musculoskeletal: No gross abnormalities (Kt Alaniz) Course Vital Signs 03/27/23 03/27/23 13:13 17:39 Temperature 102 F H 98.9 F Pulse Rate 117 H 97 Respiratory 20 20 Rate Blood Pressure 127/82 110/68 O2 Sat by Pulse 97 98 Oximetry Medical Decision Making - Lab Data Result diagrams: 03/27/23 13:31 03/27/23 13:31 <Carly Drake - Last Filed: 03/27/23 19:30> - Medical Decision Making Was pt. sent in by a medical professional or institution (, PA, ASSISTANT PROFESSOR OF ENGLISH, urgent care, hospital, or [facility]...) When possible be specific @ -No Did you speak to anyone other than the patient for history (EMS, parent, family, police, friend...)? What history was obtained from this source @ -No Did you review nursing and triage notes (agree or disagree)? Why? @ -I reviewed and agree with nursing and triage notes Were old charts reviewed (outside hosp., previous admission, EMS record, old EKG, old radiological studies, urgent care reports/EKG's, [facility] records)? Report findings @ -No old charts were reviewed Differential Diagnosis (chest pain, altered mental status, abdominal pain women, abdominal pain men, vaginal bleeding, weakness, fever, dyspnea, syncope, headache, dizziness, GI bleed, back pain, seizure, CVA, palpatations, mental health, musculoskeletal)? @ -Differential Abdominal Pain Women: Appendicitis, Cholecystitis, diverticulosis, ischemic bowel, pancreatitis, hepatitis, UTI, gastroenteritis, AAA, incarcerated hernia, bowel obstruction, constipation, inflammatory bowel, hepatitis, peptic ulcer disease, splenic infarction, perforated viscus, vulvitis, ovarian torsion, PID, kidney stone, placenta abruption, this is not meant to be an all-inclusive list EKG interpreted by me (3pts min.). @ -None X-rays interpreted by me (1pt min.). @ -None done CT interpreted by me (1pt min.). @ -None done U/S interpreted by me (1pt. min.). @ -None done What testing was considered but not performed or refused? (CT, X-rays, U/S, labs)? Why? @ -None What meds were considered but not given or refused? Why? @ -None Did you discuss the management of the patient with other professionals (professionals i.e. , PA, ASSISTANT PROFESSOR OF ENGLISH, lab, RT, psych nurse, manager social work, workers' compensation magistrate, teacher, tactical deception plans officer, rehabilitation case coordinator)? Give summary @ -No Was smoking cessation discussed for >3mins.? @ -No Was critical care preformed (if so, how long)? @ -No Were there social determinants of health that impacted care today? How? (Homelessness, low income, unemployed, alcoholism, drug addiction, transportation, low edu. Level, literacy, decrease access to med. care, long term, rehab)? @ -No Was there de-escalation of care discussed even if they declined (Discuss DNR or withdrawal of care, Hospice)? DNR status @ -No What co-morbidities impacted this encounter? (DM, HTN, Smoking, COPD, CAD, Cancer, CVA, ARF, Chemo, Hep., AIDS, mental health diagnosis, sleep apnea, morbid obesity)? @ -None Was patient admitted / discharged? Hospital course, mention meds given and route, prescriptions, significant lab abnormalities, going to OR and other pertinent info. @ -Discharged. Patient presented to emergency department with chief complaint of nausea, vomiting, diarrhea 1 day. Patient was given IV fluids and Zofran which helped with her nausea. CBC and CMP were obtained. CBC showed a WBC of 11.4, hemoglobin 16.3, hematocrit 48.7, electrolytes within normal limits; UA showed cloudy urine, trace protein, 2+ ketones likely due to mild dehydration. Prescription was sent to the pharmacy for Zofran. With patient's recent sick contacts, this is likely a viral infection. She was advised on return precautions including localization of pain, development of new symptoms, any recurrent symptoms. Patient advised to hydrate herself well. Case discussed with my attending, Dr. Saldana. Undiagnosed new problem with uncertain prognosis? @ -No Drug Therapy requiring intensive monitoring for toxicity (Heparin, Nitro, Insulin, Cardizem)? @ -No Were any procedures done? @ -No Diagnosis/symptom? @ -Nausea, vomiting Acute, or Chronic, or Acute on Chronic? @ -Acute Uncomplicated (without systemic symptoms) or Complicated (systemic symptoms)? @ -Uncomplicated Side effects of treatment? @ -No Exacerbation, Progression, or Severe Exacerbation? @ -No Poses a threat to life or bodily function? How? (Chest pain, [place], [place], pneumonia, PE, COPD, DKA, ARF, appy, cholecystitis, CVA, Diverticulitis, Homicidal, Suicidal, threat to staff... and all critical care pts) @ -No (Carly Drake) - Lab Data Lab Results 03/27/23 03/27/23 03/27/23 Range/Units 13:20 13:31 13:31 WBC 11.4 H (3.8-10.6) k/uL RBC 5.20 (3.80-5.40) m/uL Hgb 16.3 H (11.4-16.0) gm/dL Hct 48.7 H (34.0-46.0) % MCV 93.7 (80.0-100.0) fL MCH 31.4 (25.0-35.0) pg MCHC 33.5 (31.0-37.0) g/dL RDW 12.9 (11.5-15.5) % Plt Count 251 (150-450) k/uL MPV 8.5 Neutrophils % 93 % Lymphocytes % 3 % Monocytes % 3 % Eosinophils % 1 % Basophils % 0 % Neutrophils # 10.6 H (1.3-7.7) k/uL Lymphocytes # 0.4 L (1.0-4.8) k/uL Monocytes # 0.3 (0-1.0) k/uL Eosinophils # 0.1 (0-0.7) k/uL Basophils # 0.0 (0-0.2) k/uL Sodium 138 (137-145) mmol/L Potassium 4.0 (3.5-5.1) mmol/L Chloride 104 (98-107) mmol/L Carbon Dioxide 23 (22-30) mmol/L Anion Gap 11 mmol/L BUN 10 (7-17) mg/dL Creatinine 0.51 L (0.52-1.04) mg/dL Est GFR (CKD-EPI)AfAm >90 (>60 ml/min/1.73 sqM) Est GFR (CKD-EPI)NonAf >90 (>60 ml/min/1.73 sqM) Glucose 107 H (74-99) mg/dL Calcium 8.9 (8.4-10.2) mg/dL Total Bilirubin 1.7 H (0.2-1.3) mg/dL AST 22 (14-36) U/L ALT 21 (4-34) U/L Alkaline Phosphatase 110 (38-126) U/L Total Protein 7.7 (6.3-8.2) g/dL Albumin 4.4 (3.5-5.0) g/dL Urine Color Urine Appearance (Clear) Urine pH (5.0-8.0) Ur Specific [place] (1.001-1.035) Urine Protein (Negative) Urine Glucose (UA) (Negative) Urine Ketones (Negative) Urine Blood (Negative) Urine Nitrite (Negative) Urine Bilirubin (Negative) Urine Urobilinogen (<2.0) mg/dL Ur Leukocyte Esterase (Negative) Urine WBC (0-5) /hpf Ur Squamous Epith Cells (0-4) /hpf Urine Mucus (None) /hpf Urine HCG, Qual (Not Detectd) Coronavirus (PCR) Not Detected (Not Detectd) 03/27/23 03/27/23 Range/Units 15:43 15:43 WBC (3.8-10.6) k/uL RBC (3.80-5.40) m/uL Hgb (11.4-16.0) gm/dL Hct (34.0-46.0) % MCV (80.0-100.0) fL MCH (25.0-35.0) pg MCHC (31.0-37.0) g/dL RDW (11.5-15.5) % Plt Count (150-450) k/uL MPV Neutrophils % % Lymphocytes % % Monocytes % % Eosinophils % % Basophils % % Neutrophils # (1.3-7.7) k/uL Lymphocytes # (1.0-4.8) k/uL Monocytes # (0-1.0) k/uL Eosinophils # (0-0.7) k/uL Basophils # (0-0.2) k/uL Sodium (137-145) mmol/L Potassium (3.5-5.1) mmol/L Chloride (98-107) mmol/L Carbon Dioxide (22-30) mmol/L Anion Gap mmol/L BUN (7-17) mg/dL Creatinine (0.52-1.04) mg/dL Est GFR (CKD-EPI)AfAm (>60 ml/min/1.73 sqM) Est GFR (CKD-EPI)NonAf (>60 ml/min/1.73 sqM) Glucose (74-99) mg/dL Calcium (8.4-10.2) mg/dL Total Bilirubin (0.2-1.3) mg/dL AST (14-36) U/L ALT (4-34) U/L Alkaline Phosphatase (38-126) U/L Total Protein (6.3-8.2) g/dL Albumin (3.5-5.0) g/dL Urine Color Yellow Urine Appearance Cloudy H (Clear) Urine pH 5.5 (5.0-8.0) Ur Specific [place] 1.031 (1.001-1.035) Urine Protein Trace H (Negative) Urine Glucose (UA) Negative (Negative) Urine Ketones 2+ H (Negative) Urine Blood Negative (Negative) Urine Nitrite Negative (Negative) Urine Bilirubin Negative (Negative) Urine Urobilinogen <2.0 (<2.0) mg/dL Ur Leukocyte Esterase Small H (Negative) Urine WBC 7 H (0-5) /hpf Ur Squamous Epith Cells 13 H (0-4) /hpf Urine Mucus Many H (None) /hpf Urine HCG, Qual Not Detected (Not Detectd) Coronavirus (PCR) (Not Detectd) Disposition <Kt Alaniz - Last Filed: 03/27/23 13:18> Is patient prescribed a controlled substance at d/c from ED?: No <Carly Drake - Last Filed: 03/27/23 19:30> Clinical Impression: Vomiting and diarrhea Disposition: HOME SELF-CARE Condition: Stable Instructions (If sedation given, give patient instructions): Acute Nausea and V omiting (ED) Additional Instructions: Please return to the Emergency Department if symptoms worsen or any other concerns. Referrals: Omar Lenz MD [Primary Care Provider] - 1-2 days
[2023-03-27 13:46] LABS: Basophils % (A) 0 %; Eosinophils # (A) 0.1 k/uL (0-0.7); Eosinophils % (A) 1 %; HCT 48.7 % (34.0-46.0); HGB 16.3 gm/dL (11.4-16.0); Lymphocytes # (A) 0.4 k/uL (1.0-4.8); Lymphocytes % (A) 3 %; MCH 31.4 pg (25.0-35.0); MCHC 33.5 g/dL (31.0-37.0); MCV 93.7 fL (80.0-100.0); Mean Platelet Volume 8.5; Monocytes # (A) 0.3 k/uL (0-1.0); Monocytes % (A) 3 %; Neutrophils # (A) 10.6 k/uL (1.3-7.7); Neutrophils % (A) 93 %; Platelet Count 251 k/uL (150-450); RDW 12.9 % (11.5-15.5); WBC 11.4 k/uL (3.8-10.6)
[2023-03-27 14:08] LABS: ALT 21 U/L (4-34); AST 22 U/L (14-36); African American GFR (CKD) >90 (>60 ml/min/1.73 sqM); Albumin 4.4 g/dL (3.5-5.0); Alkaline Phosphatase 110 U/L (38-126); Anion Gap 11 mmol/L; Blood Urea Nitrogen 10 mg/dL (7-17); Calcium 8.9 mg/dL (8.4-10.2); Carbon Dioxide 23 mmol/L (22-30); Chloride 104 mmol/L (98-107); Glucose 107 mg/dL (74-99); Non-African American GFR(CKD) >90 (>60 ml/min/1.73 sqM); Sodium 138 mmol/L (137-145); Total Bilirubin 1.7 mg/dL (0.2-1.3); Total Protein 7.7 g/dL (6.3-8.2)
[2023-03-27] MEDS ORDERED: SODIUM CHLORIDE 0.9% 1,000 ML IV ONE (15:37)
[2023-03-27 16:28] LABS: Appearance,Urine Cloudy (Clear); Bilirubin,Urine Negative (Negative); Blood,Urine Negative (Negative); Color,Urine Yellow; Glucose,Urine (UA) Negative (Negative); Ketones,Urine 2+ (Negative); Leukocyte Esterase,Urine Small (Negative); Mucus,Urine Many /hpf; Nitrite,Urine Negative (Negative); PH, Urine 5.5 (5.0-8.0); Protein,Urine Trace (Negative); Specific Gravity,Urine 1.031 (1.001-1.035); Squamous Epithelial Cell,Urine 13 /hpf (0-4); Urobilinogen,Urine <2.0 mg/dL (<2.0); WBC,Urine 7 /hpf (0-5)
[2023-03-27 17:42] VITALS: BP 110/68; PULSE 97; TEMP 98.9
== END 2023-03-27 17:50 | disposition home or self-care (01) ==
LOC: EC 12:01
DX: R11.2 Nausea with vomiting, unspecified (principal); R19.7 Diarrhea, unspecified; F17.290 Nicotine dependence, other tobacco product, uncomplicated; Z20.822 Contact with and (suspected) exposure to COVID-19
CPT/HCPCS: 36415; 80053; 81001; 81025; 85025; 87635; 96360; 99283

== ENCOUNTER 2023-04-22 19:45 | Emergency (ER) | payer OTHER ==
[2023-04-22 20:04] VITALS: RESP 18; TEMP 98.2
[2023-04-22 20:19] LABS: Basophils % (A) 0 %; Eosinophils # (A) 0.2 k/uL (0-0.7); Eosinophils % (A) 3 %; HGB 14.3 gm/dL (11.4-16.0); Lymphocytes # (A) 2.5 k/uL (1.0-4.8); Lymphocytes % (A) 33 %; MCH 30.8 pg (25.0-35.0); MCHC 33.3 g/dL (31.0-37.0); MCV 92.5 fL (80.0-100.0); Mean Platelet Volume 8.6; Monocytes # (A) 0.5 k/uL (0-1.0); Monocytes % (A) 7 %; Neutrophils # (A) 4.1 k/uL (1.3-7.7); Neutrophils % (A) 54 %; Platelet Count 276 k/uL (150-450); RBC 4.65 m/uL (3.80-5.40); WBC 7.5 k/uL (3.8-10.6)
--- NOTE | 2023-04-22 20:21 | ED ---
Chest Pain HPI - General Chief Complaint: Chest Pain Stated Complaint: chest pain; shortness of breath; left sided weakne Time Seen by Provider: 04/22/23 20:20 Source: patient, RN notes reviewed Mode of arrival: ambulatory Limitations: no limitations - History of Present Illness Initial Comments: Patient is a 27-year-old female presents to the emergency department for chest pain. Started this morning when waking up. Patient cannot recall injury. atient mostly has pain when pushing on her left chest. She denies any numbness and tingling. Denies shortness of breath, nausea, vomiting. Denies fever, chills, cough. Denies history of cardiac disease. Patient is a nonsmoker. MD Complaint: chest pain - Related Data Home Medications Medication Instructions Recorded Confirmed Aspirin/Omeprazole 1 tab PO DAILY 01/29/20 01/29/20 [Aspirin-Omeprazole Dr 81-40 mg] Previous Rx's Medication Instructions Recorded Azithromycin [Zithromax] 500 mg PO DAILY #5 tab 07/21/22 Ibuprofen [Motrin] 800 mg PO Q8HR PRN #30 tab 04/22/23 Allergies Allergy/AdvReac Type Severity Reaction Status Date / Time No Known Allergies Allergy Verified 04/22/23 20:02 Review of Systems ROS Statement: Those systems with pertinent positive or pertinent negative responses have been documented in the HPI. ROS Other: All systems not noted in ROS Statement are negative. Past Medical History Past Medical History: No Reported History History of Any Multi-Drug Resistant Organisms: None Reported Past Surgical History: Cholecystectomy, Hernia Repair, Orthopedic Surgery Additional Past Surgical History / Comment(s): right foot Past Anesthesia/Blood Transfusion Reactions: Family History of Problems w/ Anesthesia, Postoperative Nausea & Vomiting (PONV) Additional Past Anesthesia/Blood Transfusion Reaction / Comment(s): grandma PONV Past Psychological History: No Psychological Hx Reported Smoking Status: Vaper Past Alcohol Use History: None Reported Past Drug Use History: None Reported - Past Family History Father History Unknown: Yes Family Medical History: No Reported History General Exam - General Exam Comments Initial Comments: Visual Physical Exam Vital signs reviewed General: Well-appearing, nontoxic, no acute distress. Head: Normocephalic, atraumatic Eyes: PERRLA, EOMI ENT: Airway patent Chest: Nonlabored breathing Skin: No visual rash, normal skin tone Neuro: Alert and oriented 3 Musculoskeletal: No gross abnormalities Limitations: no limitations General appearance: alert, in no apparent distress Head exam: Present: atraumatic, normocephalic, normal inspection Eye exam: Present: normal appearance, PERRL, EOMI. Absent: scleral icterus, conjunctival injection, periorbital swelling Respiratory exam: Present: normal lung sounds bilaterally, chest wall tenderness (left). Absent: respiratory distress, wheezes, rales, rhonchi, stridor Cardiovascular Exam: Present: regular rate, normal rhythm, normal heart sounds. Absent: systolic murmur, diastolic murmur, rubs, gallop, clicks Extremities exam: Present: normal inspection, full ROM, normal capillary refill. Absent: calf tenderness Neurological exam: Present: alert, oriented X3, CN II-XII intact Psychiatric exam: Present: normal affect, normal mood Skin exam: Present: warm, dry, intact, normal color. Absent: rash Course Vital Signs 04/22/23 04/22/23 04/22/23 20:02 22:24 23:11 Temperature 98.2 F Pulse Rate 77 59 L Pulse Rate [ [address] ] Respiratory 18 18 Rate Blood Pressure 134/86 130/90 O2 Sat by Pulse 98 100 Oximetry 04/23/23 00:16 Temperature Pulse Rate 59 L Pulse Rate [ [address] Judge ] Respiratory 18 Rate Blood Pressure 129/89 O2 Sat by Pulse 100 Oximetry Chest Pain MDM - MDM EKG taken at 20:14, interpreted by myself Sinus rhythm, no ST segment or T-wave abnormality Ventricular rate 72, MN interval 122, QRS duration 93, QTc 409 Was pt. sent in by a medical professional or institution (, PA, MAT ROLLER, urgent care, hospital, or care home...) When possible be specific @ -No Did you speak to anyone other than the patient for history (EMS, parent, family, police, friend...)? What history was obtained from this source @ -No Did you review nursing and triage notes (agree or disagree)? Why? @ -I reviewed and agree with nursing and triage notes Were old charts reviewed (outside hosp., previous admission, EMS record, old EKG, old radiological studies, urgent care reports/EKG's, care home records)? Report findings @ -No old charts were reviewed Differential Diagnosis (chest pain, altered mental status, abdominal pain women, abdominal pain men, vaginal bleeding, weakness, fever, dyspnea, syncope, headache, dizziness, GI bleed, back pain, seizure, CVA, palpatations, mental health)? @ -Differential Chest Pain: Stable Angina, Unstable Angina, STEMI, NSTEMI Aortic Dissection, Pneumothorax, Musculoskeletal, Esophageal Spasm GERD, Cholecystitis, Pancreatitis, Zoster, this is not meant to be an all-inclusive list. EKG interpreted by me (3pts min.). @ -As above X-rays interpreted by me (1pt min.). @ -No acute cardiopulmonary process CT interpreted by me (1pt min.). @ -None done U/S interpreted by me (1pt. min.). @ -None done What testing was considered but not performed or refused? (CT, X-rays, U/S, labs)? Why? @ -None What meds were considered but not given or refused? Why? @ -None Did you discuss the management of the patient with other professionals (professionals i.e. , PA, MAT ROLLER, lab, RT, psych nurse, social services designee, food and beverage order clerk, teacher, light armored vehicle officer, case sealer)? Give summary @ -No Was smoking cessation discussed for >3mins.? @ -No Was critical care preformed (if so, how long)? @ -No Were there social determinants of health that impacted care today? How? (Homelessness, low income, unemployed, alcoholism, drug addiction, transportation, low edu. Level, literacy, decrease access to med. care, senior care, rehab)? @ -No Was there de-escalation of care discussed even if they declined (Discuss DNR or withdrawal of care, Hospice)? DNR status @ -No What co-morbidities impacted this encounter? (DM, HTN, Smoking, COPD, CAD, Cancer, CVA, ARF, Chemo, Hep., AIDS, mental health diagnosis, sleep apnea, morbid obesity)? @ -None Was patient admitted / discharged? Hospital course, mention meds given and route, prescriptions, significant lab abnormalities, going to OR and other pertinent info. @ -Discharged. Clinical presentation consistent with muscle strain. EKG shows no evidence of acute ischemia, troponin negative. Chest x-ray interpreted by myself/radiology showing no acute cardiopulmonary process. Patient has little risk factors for ACS related chest pain she is discharged in stable condition Undiagnosed new problem with uncertain prognosis? @ -No Drug Therapy requiring intensive monitoring for toxicity (Heparin, Nitro, Insulin, Cardizem)? @ -No Were any procedures done? @ -No Diagnosis/symptom? @ -Atypical chest pain Acute, or Chronic, or Acute on Chronic? @ -Acute Uncomplicated (without systemic symptoms) or Complicated (systemic symptoms)? @ -Uncomplicated Side effects of treatment? @ -No Exacerbation, Progression, or Severe Exacerbation? @ -No Poses a threat to life or bodily function? How? (Chest pain, [place], [place], pneumonia, PE, COPD, DKA, ARF, appy, cholecystitis, CVA, Diverticulitis, Homicidal, Suicidal, threat to staff... and all critical care pts) @ -No Dr. Ho is my attending Disposition Clinical Impression: Atypical chest pain Disposition: HOME SELF-CARE Condition: Good Instructions (If sedation given, give patient instructions): Chest Pain (ED) Additional Instructions: Take medication as directed. Please follow-up with your primary care provider in 1-2 days. Return to the emergency department if you experience new, concerning, or worsening symptoms. Prescriptions: Ibuprofen [Motrin] 800 mg PO Q8HR PRN #30 tab PRN Reason: Pain Is patient prescribed a controlled substance at d/c from ED?: No Referrals: mOar Lenz MD [Primary Care Provider] - 1-2 days
[2023-04-22 20:29] LABS: ALT 23 U/L (4-34); AST 23 U/L (14-36); African American GFR (CKD) >90 (>60 ml/min/1.73 sqM); Alkaline Phosphatase 104 U/L (38-126); Anion Gap 8 mmol/L; Blood Urea Nitrogen 11 mg/dL (7-17); Calcium 8.6 mg/dL (8.4-10.2); Carbon Dioxide 26 mmol/L (22-30); Chloride 104 mmol/L (98-107); Glucose 90 mg/dL (74-99); Non-African American GFR(CKD) >90 (>60 ml/min/1.73 sqM); Potassium 4.2 mmol/L (3.5-5.1); Sodium 138 mmol/L (137-145); Total Bilirubin 0.8 mg/dL (0.2-1.3); Total Protein 7.1 g/dL (6.3-8.2)
[2023-04-22 20:40] LABS: INR 0.9 (<1.2); Partial Thromboplastin Time 24.7 sec (22.0-30.0); Prothrombin Time 9.9 sec (9.0-12.0)
--- NOTE | 2023-04-22 21:42 | XR ---
EXAMINATION TYPE: XR chest 2V DATE OF EXAM: 04/22/2023 9:27 PM COMPARISON: Chest radiographs from 07/21/2022 TECHNIQUE: XR chest 2V Frontal and lateral views of the chest. CLINICAL INDICATION:Female, 27 years old with history of chest pain; FINDINGS: Lungs/Pleura: There is no evidence of pleural effusion, focal consolidation, or pneumothorax. Pulmonary vascularity: Unremarkable. Heart/mediastinum: Cardiomediastinal silhouette is unremarkable. Musculoskeletal: No acute osseous pathology. IMPRESSION: No acute cardiopulmonary disease/process.
[2023-04-22] MEDS ORDERED: SODIUM CHLORIDE 0.9% 1,000 ML IV STA (22:14)
[2023-04-22] MEDS ORDERED: KETOROLAC 15 MG/ML 1 ML VIAL IVP STA (22:14)
[2023-04-22 23:12] VITALS: PULSE 59
[2023-04-23 00:17] VITALS: BP 129/89
== END 2023-04-23 00:38 | disposition home or self-care (01) ==
LOC: EC 19:45
DX: R07.89 Other chest pain (principal); F17.290 Nicotine dependence, other tobacco product, uncomplicated; Z90.49 Acquired absence of other specified parts of digestive tract
CPT/HCPCS: 36415; 93005; 80053; 84484; 85025; 85610; 85730; 71046; 99285; 96374; 96361; J1885

== ENCOUNTER 2023-05-01 21:05 | Emergency (ER) | payer OTHER ==
[2023-05-01 21:24] VITALS: TEMP 97.6
[2023-05-01] MEDS ORDERED: ACETAMINOPHEN TAB 325 MG TAB PO STA (22:42)
--- NOTE | 2023-05-01 22:45 | ED ---
General Adult HPI - General Chief complaint: Vaginal Bleeding Stated complaint: Blood clots, ABD Pain Time Seen by Provider: 05/01/23 21:30 Source: patient, RN notes reviewed Mode of arrival: ambulatory Limitations: no limitations - History of Present Illness Initial comments: This is a nontoxic-appearing 27-year-old female that presents to the emergency room with vaginal bleeding that started today. She states she is due to start her menses however has had increased abdominal cramping and heavier bleeding than normal. She states there is a possibility that she could be . She is a with 3-year-old and a 5-year-old, vaginal deliveries with no complications. Denies any medical history. Nonsmoker. -: hour(s) (1900) Location: abdomen Severity scale (1-10): 0 Quality: other (cramping) Consistency: now resolved Associated Symptoms: other (vaginal bleeding) Treatments Prior to Arrival: none - Related Data Home Medications Medication Instructions Recorded Confirmed Aspirin/Omeprazole 1 tab PO DAILY 01/29/20 01/29/20 [Aspirin-Omeprazole Dr 81-40 mg] Previous Rx's Medication Instructions Recorded Azithromycin [Zithromax] 500 mg PO DAILY #5 tab 07/21/22 Ibuprofen [Motrin] 800 mg PO Q8HR PRN #30 tab 04/22/23 Allergies Allergy/AdvReac Type Severity Reaction Status Date / Time No Known Allergies Allergy Verified 05/01/23 21:24 Review of Systems ROS Statement: Those systems with pertinent positive or pertinent negative responses have been documented in the HPI. ROS Other: All systems not noted in ROS Statement are negative. Past Medical History Past Medical History: No Reported History History of Any Multi-Drug Resistant Organisms: None Reported Past Surgical History: Cholecystectomy, Hernia Repair, Orthopedic Surgery Additional Past Surgical History / Comment(s): right foot Past Anesthesia/Blood Transfusion Reactions: Family History of Problems w/ Anesthesia, Postoperative Nausea & Vomiting (PONV) Additional Past Anesthesia/Blood Transfusion Reaction / Comment(s): grandma PONV Past Psychological History: No Psychological Hx Reported Smoking Status: Vaper Past Alcohol Use History: Occasional Past Drug Use History: Marijuana - Past Family History Father History Unknown: Yes Family Medical History: No Reported History General Exam Limitations: no limitations General appearance: alert, in no apparent distress Head exam: Present: atraumatic Eye exam: Present: normal appearance. Absent: scleral icterus, conjunctival injection, periorbital swelling ENT exam: Present: mucous membranes moist Neck exam: Present: full ROM. Absent: meningismus Respiratory exam: Absent: respiratory distress, accessory muscle use Cardiovascular Exam: Present: regular rate GI/Abdominal exam: Present: soft Extremities exam: Present: normal capillary refill. Absent: tenderness, pedal edema Neurological exam: Present: alert, oriented X3 Psychiatric exam: Present: normal affect, normal mood Skin exam: Present: warm, dry, normal color. Absent: cyanosis, diaphoretic, pallor Course Vital Signs 05/01/23 05/02/23 21:21 00:34 Temperature 97.6 F Pulse Rate 74 64 Respiratory 20 18 Rate Blood Pressure 132/90 122/87 O2 Sat by Pulse 99 100 Oximetry Medical Decision Making - Medical Decision Making Was pt. sent in by a medical professional or institution (JUSTIN Causey, WAREHOUSE MAN, urgent care, hospital, or usp...) When possible be specific @ -No Did you speak to anyone other than the patient for history (EMS, parent, family, police, friend...)? What history was obtained from this source @ -No Did you review nursing and triage notes (agree or disagree)? Why? @ -I reviewed and agree with nursing and triage notes Were old charts reviewed (outside hosp., previous admission, EMS record, old EKG, old radiological studies, urgent care reports/EKG's, usp records)? Report findings @ -No old charts were reviewed Differential Diagnosis (chest pain, altered mental status, abdominal pain women, abdominal pain men, vaginal bleeding, weakness, fever, dyspnea, syncope, headache, dizziness, GI bleed, back pain, seizure, CVA, palpatations, mental health, musculoskeletal)? @ -Ectopic , miscarriage, dysfunctional uterine bleeding EKG interpreted by me (3pts min.). @ -n/a X-rays interpreted by me (1pt min.). @ -None done CT interpreted by me (1pt min.). @ -None done U/S interpreted by me (1pt. min.). @ -None done What testing was considered but not performed or refused? (CT, X-rays, U/S, labs)? Why? @ -None What meds were considered but not given or refused? Why? @ -None Did you discuss the management of the patient with other professionals (professionals i.e. , PA, WAREHOUSE MAN, lab, RT, psych nurse, social secretary, cyber ops planner, teacher, probation and parole officer, nurse outreach case manager)? Give summary @ -No Was smoking cessation discussed for >3mins.? @ -No Was critical care preformed (if so, how long)? @ -No Were there social determinants of health that impacted care today? How? (Homelessness, low income, unemployed, alcoholism, drug addiction, transportation, low edu. Level, literacy, decrease access to med. care, intermediate, rehab)? @ -No Was there de-escalation of care discussed even if they declined (Discuss DNR or withdrawal of care, Hospice)? DNR status @ -No What co-morbidities impacted this encounter? (DM, HTN, Smoking, COPD, CAD, C ancer, CVA, ARF, Chemo, Hep., AIDS, mental health diagnosis, sleep apnea, morbid obesity)? @ -None Was patient admitted / discharged? Hospital course, mention meds given and route, prescriptions, significant lab abnormalities, going to OR and other pertinent info. @ -discharged This is a nontoxic-appearing 27-year-old female that presents to the emergency room with vaginal bleeding that started today. She states she is due to start her menses however has had increased abdominal cramping and heavier bleeding than normal. She states there is a possibility that she could be . She is a with 3-year-old and a 5-year-old, vaginal deliveries with no complications. Denies any medical history. Nonsmoker. Hemoglobin and hematocrit are stable at 14.3 and 43.6 respectively. test is negative. Physical exam patient's abdomen is soft and nontender. She is hemodynamically stable. States that the bleeding has now slowed. This is likely menometorrhagia and she was directed to follow up with her primary care doctor or AUTOMATIC BRINE MIXER OPERATOR for continuation of care. Return to the emergency room with any shortness of breath, dizziness, chest pain or increased breathing. She is agreeable to this plan of care. Case discussed with Dr. Saldana Undiagnosed new problem with uncertain prognosis? @ -No Drug Therapy requiring intensive monitoring for toxicity (Heparin, Nitro, Insulin, Cardizem)? @ -No Were any procedures done? @ -No Diagnosis/symptom? @ -Menometorrhagia Acute, or Chronic, or Acute on Chronic? @ -Acute Uncomplicated (without systemic symptoms) or Complicated (systemic symptoms)? @ -Uncomplicated Side effects of treatment? @ -No Exacerbation, Progression, or Severe Exacerbation? @ -No Poses a threat to life or bodily function? How? (Chest pain, USA, [place], pneumonia, PE, COPD, DKA, ARF, appy, cholecystitis, CVA, Diverticulitis, Homicidal, Suicidal, threat to staff... and all critical care pts) @ -No - Lab Data Result diagrams: 05/01/23 23:24 05/01/23 23:24 Lab Results 05/01/23 05/01/23 05/01/23 Range/Units 23:24 23:24 23:24 WBC 7.0 (3.8-10.6) k/uL RBC 4.58 (3.80-5.40) m/uL Hgb 14.3 (11.4-16.0) gm/dL Hct 43.6 (34.0-46.0) % MCV 95.2 (80.0-100.0) fL MCH 31.2 (25.0-35.0) pg MCHC 32.8 (31.0-37.0) g/dL RDW 12.9 (11.5-15.5) % Plt Count 299 (150-450) k/uL MPV 8.3 Neutrophils % 56 % Lymphocytes % 33 % Monocytes % 6 % Eosinophils % 3 % Basophils % 1 % Neutrophils # 3.9 (1.3-7.7) k/uL Lymphocytes # 2.3 (1.0-4.8) k/uL Monocytes # 0.4 (0-1.0) k/uL Eosinophils # 0.2 (0-0.7) k/uL Basophils # 0.0 (0-0.2) k/uL Sodium (137-145) mmol/L Potassium (3.5-5.1) mmol/L Chloride (98-107) mmol/L Carbon Dioxide (22-30) mmol/L Anion Gap mmol/L BUN (7-17) mg/dL Creatinine (0.52-1.04) mg/dL Est GFR (CKD-EPI)AfAm (>60 ml/min/1.73 sqM) Est GFR (CKD-EPI)NonAf (>60 ml/min/1.73 sqM) Glucose (74-99) mg/dL Calcium (8.4-10.2) mg/dL Total Bilirubin (0.2-1.3) mg/dL AST (14-36) U/L ALT (4-34) U/L Alkaline Phosphatase (38-126) U/L Total Protein (6.3-8.2) g/dL Albumin (3.5-5.0) g/dL Urine Color Red Urine Appearance Bloody H (Clear) Urine RBC >182 H (0-5) /hpf Urine WBC 66 H (0-5) /hpf Urine HCG, Qual Not Detected (Not Detectd) 05/01/23 Range/Units 23:24 WBC (3.8-10.6) k/uL RBC (3.80-5.40) m/uL Hgb (11.4-16.0) gm/dL Hct (34.0-46.0) % MCV (80.0-100.0) fL MCH (25.0-35.0) pg MCHC (31.0-37.0) g/dL RDW (11.5-15.5) % Plt Count (150-450) k/uL MPV Neutrophils % % Lymphocytes % % Monocytes % % Eosinophils % % Basophils % % Neutrophils # (1.3-7.7) k/uL Lymphocytes # (1.0-4.8) k/uL Monocytes # (0-1.0) k/uL Eosinophils # (0-0.7) k/uL Basophils # (0-0.2) k/uL Sodium 137 (137-145) mmol/L Potassium 4.0 (3.5-5.1) mmol/L Chloride 105 (98-107) mmol/L Carbon Dioxide 25 (22-30) mmol/L Anion Gap 7 mmol/L BUN 12 (7-17) mg/dL Creatinine 0.56 (0.52-1.04) mg/dL Est GFR (CKD-EPI)AfAm >90 (>60 ml/min/1.73 sqM) Est GFR (CKD-EPI)NonAf >90 (>60 ml/min/1.73 sqM) Glucose 82 (74-99) mg/dL Calcium 8.6 (8.4-10.2) mg/dL Total Bilirubin 0.7 (0.2-1.3) mg/dL AST 27 (14-36) U/L ALT 22 (4-34) U/L Alkaline Phosphatase 107 (38-126) U/L Total Protein 6.8 (6.3-8.2) g/dL Albumin 3.8 (3.5-5.0) g/dL Urine Color Urine Appearance (Clear) Urine RBC (0-5) /hpf Urine WBC (0-5) /hpf Urine HCG, Qual (Not Detectd) Disposition Clinical Impression: Menometrorrhagia Disposition: HOME SELF-CARE Condition: Good Instructions (If sedation given, give patient instructions): Abnormal (Dysfunctional) Uterine Bleeding (ED) Additional Instructions: Your heavy vaginal bleeding can be caused by many things including hormone imbalance, uterine fibroids or polyps. I recommend follow-up with your AUTOMATIC BRINE MIXER OPERATOR for continuation of care. Increase your fluid intake. Return to the emergency room with any new or concerning symptoms including dizziness, difficulty in breathing or chest pain. Hemoglobin 14.3, hematocrit 43.6, platelets 299. Urine test negative. Is patient prescribed a controlled substance at d/c from ED?: No Referrals: Omar Lenz MD [Primary Care Provider] - 1-2 days Time of Disposition: 00:11
[2023-05-01 23:41] LABS: Basophils % (A) 1 %; Eosinophils # (A) 0.2 k/uL (0-0.7); Eosinophils % (A) 3 %; HCT 43.6 % (34.0-46.0); HGB 14.3 gm/dL (11.4-16.0); Lymphocytes # (A) 2.3 k/uL (1.0-4.8); Lymphocytes % (A) 33 %; MCH 31.2 pg (25.0-35.0); MCHC 32.8 g/dL (31.0-37.0); MCV 95.2 fL (80.0-100.0); Mean Platelet Volume 8.3; Monocytes # (A) 0.4 k/uL (0-1.0); Monocytes % (A) 6 %; Neutrophils # (A) 3.9 k/uL (1.3-7.7); Neutrophils % (A) 56 %; Platelet Count 299 k/uL (150-450); RBC 4.58 m/uL (3.80-5.40); RDW 12.9 % (11.5-15.5)
[2023-05-01 23:42] LABS: Appearance,Urine Bloody (Clear); Color,Urine Red
[2023-05-01 23:47] LABS: RBC,Urine >182 /hpf (0-5); WBC,Urine 66 /hpf (0-5)
[2023-05-02 00:02] LABS: ALT 22 U/L (4-34); AST 27 U/L (14-36); African American GFR (CKD) >90 (>60 ml/min/1.73 sqM); Albumin 3.8 g/dL (3.5-5.0); Alkaline Phosphatase 107 U/L (38-126); Anion Gap 7 mmol/L; Blood Urea Nitrogen 12 mg/dL (7-17); Calcium 8.6 mg/dL (8.4-10.2); Carbon Dioxide 25 mmol/L (22-30); Chloride 105 mmol/L (98-107); Glucose 82 mg/dL (74-99); Non-African American GFR(CKD) >90 (>60 ml/min/1.73 sqM); Sodium 137 mmol/L (137-145); Total Bilirubin 0.7 mg/dL (0.2-1.3); Total Protein 6.8 g/dL (6.3-8.2)
[2023-05-02 00:36] VITALS: BP 122/87; PULSE 64; RESP 18
== END 2023-05-02 00:35 | disposition home or self-care (01) ==
LOC: EC 21:05
DX: N92.1 Excessive and frequent menstruation with irregular cycle (principal); F17.290 Nicotine dependence, other tobacco product, uncomplicated; F12.90 Cannabis use, unspecified, uncomplicated; Z79.82 Long term (current) use of aspirin
CPT/HCPCS: 36415; 80053; 81001; 81025; 85025; 99284

== ENCOUNTER 2024-10-17 11:01 | Inpatient (IN) | payer OTHER ==
--- NOTE | 2024-10-17 11:42 | ED ---
Animal Bite HPI - General Chief Complaint: Animal Bite Stated Complaint: Cat bite, left hand infection Time Seen by Provider: 10/17/24 11:38 Source: patient, RN notes reviewed Mode of arrival: ambulatory Limitations: no limitations - History of Present Illness Initial Comments: 28-year-old female presenting to the ER with left hand infection. Patient s tates she was bit by a stray kitten yesterday and reports swelling, redness, and pain of left third digit. States she is having difficulty with range of motion of left third digit due to pain and swelling. Denies fevers, chills, vomiting. No other health conditions. - Related Data Home Medications Medication Instructions Recorded Confirmed Aspirin/Omeprazole 1 tab PO DAILY 01/29/20 01/29/20 [Aspirin-Omeprazole Dr 81-40 mg] Previous Rx's Medication Instructions Recorded Azithromycin [Zithromax] 500 mg PO DAILY #5 tab 07/21/22 Ibuprofen [Motrin] 800 mg PO Q8HR PRN #30 tab 04/22/23 Allergies Allergy/AdvReac Type Severity Reaction Status Date / Time No Known Allergies Allergy Verified 10/17/24 11:06 Review of Systems ROS Statement: Those systems with pertinent positive or pertinent negative responses have been documented in the HPI. ROS Other: All systems not noted in ROS Statement are negative. Past Medical History Past Medical History: No Reported History History of Any Multi-Drug Resistant Organisms: None Reported Past Surgical History: Cholecystectomy, Hernia Repair, Orthopedic Surgery Additional Past Surgical History / Comment(s): right foot Past Anesthesia/Blood Transfusion Reactions: Family History of Problems w/ Anesthesia, Postoperative Nausea & Vomiting (PONV) Additional Past Anesthesia/Blood Transfusion Reaction / Comment(s): grandma PONV Past Psychological History: No Psychological Hx Reported Smoking Status: Vaper Past Alcohol Use History: Occasional Past Drug Use History: Marijuana - Past Family History Father History Unknown: Yes Family Medical History: No Reported History General Exam Limitations: no limitations General appearance: alert, in no apparent distress Left Forearm Wrist exam: Present: normal inspection, full ROM. Absent: tenderness, swelling Hand Wrist exam: Present: tenderness, swelling. Absent: normal inspection (Diffuse erythema, edema, and tenderness to palpation left third digit. Mul tiple puncture wounds on third digit and first digit. full sensation and cap refill less than 2 seconds), full ROM (Limited range of motion of PIP and DIP joint of left third digit) Vascular: Present: normal capillary refill, radial pulse. Absent: vascular compromise Neurological exam: Present: alert, oriented X3 Psychiatric exam: Present: normal affect, normal mood Skin exam: Present: warm, dry, intact, normal color. Absent: rash Course Vital Signs 10/17/24 10/17/24 11:07 11:20 Temperature 98.5 F 98.4 F Pulse Rate 89 83 Respiratory 18 16 Rate Blood Pressure 139/100 126/88 O2 Sat by Pulse 98 98 Oximetry Medical Decision Making - Medical Decision Making Was pt. sent in by a medical professional or institution (, PA, CAR BARN LABORER, urgent care, hospital, or senior care...) When possible be specific @ -No Did you speak to anyone other than the patient for history (EMS, parent, family, police, friend...)? What history was obtained from this source @ -No Did you review nursing and triage notes (agree or disagree)? Why? @ -I reviewed and agree with nursing and triage notes Were old charts reviewed (outside hosp., previous admission, EMS record, old EKG, old radiological studies, urgent care reports/EKG's, senior care records)? Report findings @ -No old charts were reviewed Differential Diagnosis (chest pain, altered mental status, abdominal pain women, abdominal pain men, vaginal bleeding, weakness, fever, dyspnea, syncope, headache, dizziness, GI bleed, back pain, seizure, CVA, palpatations, mental health, musculoskeletal)? @ -Differential Musculoskeletal Muscular strain, contusion, ligament sprain, fracture, arthritis, septic arthritis, bursitis, cellulitis, muscle spasm, nerve compression, DVT, arterial occlusion, herpes zoster, electrolyte abnormality, tumor.... This is not meant to be in all inclusive list EKG interpreted by me (3pts min.). @ -None X-rays interpreted by me (1pt min.). @ -X-ray left hand reveals no acute process CT interpreted by me (1pt min.). @ -None done U/S interpreted by me (1pt. min.). @ -None done What testing was considered but not performed or refused? (CT, X-rays, U/S, labs)? Why? @ -None What meds were considered but not given or refused? Why? @ -None Did you discuss the management of the patient with other professionals (professionals i.e. DrSage, PA, CAR BARN LABORER, lab, RT, psych nurse, social media designer, surgical services assistant, teacher, air defence officer, casework manager)? Give summary @ -I spoke with Dr. Morales from [facility] who accepts admission Was smoking cessation discussed for >3mins.? @ -No Was critical care preformed (if so, how long)? @ -No Were there social determinants of health that impacted care today? How? (Homelessness, low income, unemployed, alcoholism, drug addiction, transportation, low edu. Level, literacy, decrease access to med. care, half-way, rehab)? @ -No Was there de-escalation of care discussed even if they declined (Discuss DNR or withdrawal of care, Hospice)? DNR status @ -No What co-morbidities impacted this encounter? (DM, HTN, Smoking, COPD, CAD, Cancer, CVA, ARF, Chemo, Hep., AIDS, mental health diagnosis, sleep apnea, morbid obesity)? @ -None Was patient admitted / discharged? Hospital course, mention meds given and route, prescriptions, significant lab abnormalities, going to OR and other pertinent info. @ -Admitted. This is a 28-year-old female with left hand infection status post cat bite yesterday. Vital signs within acceptable limits. There is diffuse erythema, edema, and tenderness to left third digit with limited range of motion. Neurovascularly intact. X-ray reveals no acute process. Patient was given tetanus, rabies vaccine and rabies immunoglobulin. Lab work including CBC, CMP, CRP, lactic acid unremarkable. I recommend admission for IV antibiotics for left hand cellulitis. Patient is agreeable to plan. I spoke with Dr. Morales who accepts admission with consultation to infectious disease and hand surgery. Blood cultures were taken and patient was started on IV Unasyn and vancomycin. Case was discussed with my ED attending Dr. Miranda. Undiagnosed new problem with uncertain prognosis? @ -No Drug Therapy requiring intensive monitoring for toxicity (Heparin, Nitro, Insul in, Cardizem)? @ -No Were any procedures done? @ -No Diagnosis/symptom? @ -Left hand cellulitis, cat bite Acute, or Chronic, or Acute on Chronic? @ -Acute Uncomplicated (without systemic symptoms) or Complicated (systemic symptoms)? @ -Uncomplicated Side effects of treatment? @ -No Exacerbation, Progression, or Severe Exacerbation? @ -No Poses a threat to life or bodily function? How? (Chest pain, USA, [place], pneumonia, PE, COPD, DKA, ARF, appy, cholecystitis, CVA, Diverticulitis, Homicidal, Suicid al, threat to staff... and all critical care pts) @ -Yes - Lab Data Result diagrams: 10/17/24 12:10/17/24 12: Lab Results 10/17/24 10/17/24 10/17/24 Range/Units 12: 12: 12: WBC 8.0 (3.8-10.6) k/uL RBC 4.74 (3.80-5.40) m/uL Hgb 14.8 (11.4-16.0) gm/dL Hct 44.8 (34.0-46.0) % MCV 94.4 (80.0-100.0) fL MCH 31.2 (25.0-35.0) pg MCHC 33.0 (31.0-37.0) g/dL RDW 12.3 (11.5-15.5) % Plt Count 283 (150-450) k/uL MPV 7.4 Neutrophils % 69 % Lymphocytes % 21 % Monocytes % 5 % Eosinophils % 3 % Basophils % 0 % Neutrophils # 5.5 (1.3-7.7) k/uL Lymphocytes # 1.7 (1.0-4.8) k/uL Monocytes # 0.4 (0-1.0) k/uL Eosinophils # 0.3 (0-0.7) k/uL Basophils # 0.0 (0-0.2) k/uL Sodium 138 (137-145) mmol/L Potassium 4.1 (3.5-5.1) mmol/L Chloride 111 H (98-107) mmol/L Carbon Dioxide 22 (22-30) mmol/L Anion Gap 5 mmol/L BUN 8 (7-17) mg/dL Creatinine 0.57 (0.52-1.04) mg/dL Est GFR (CKD-EPI)AfAm >90 (>60 ml/min/1.73 sqM) Est GFR (CKD-EPI)NonAf >90 (>60 ml/min/1.73 sqM) Glucose 91 (74-99) mg/dL Plasma Lactic Acid [place] 1.4 (0.7-2.0) mmol/L Calcium 8.5 (8.4-10.2) mg/dL Total Bilirubin 1.2 (0.2-1.3) mg/dL AST 20 (14-36) U/L ALT 21 (4-34) U/L Alkaline Phosphatase 104 (38-126) U/L C-Reactive Protein 0.6 (<1.0) mg/dL Total Protein 6.8 (6.3-8.2) g/dL Albumin 3.8 (3.5-5.0) g/dL Disposition Clinical Impression: Cellulitis of left hand, Cat bite Disposition: ADMITTED IP TO THIS [facility] Instructions (If sedation given, give patient instructions): Animal Bite (ED) Referrals: Omar Lenz MD [Primary Care Provider] - 1-2 days Time of Disposition: 13:40
--- NOTE | 2024-10-17 11:50 | XR ---
Left hand HISTORY: Animal bite to left middle finger and left middle finger pain. COMPARISON: None TECHNIQUE: 3 views of left hand were obtained. FINDINGS: There is no fracture, dislocation, intraosseous, intra-articular or soft tissue abnormality. IMPRESSION: No significant abnormality seen. [facility], Workstation: [facility], 10/17/2024 11:47 AM
[2024-10-17] MEDS: KETOROLAC 15 MG/ML 1 ML VIAL IVP STA (12:06)
[2024-10-17] MEDS: DIPH,PERTUS(ACELL)TETVAC-LF 0.5 ML VIAL IM ONE (12:08)
[2024-10-17 12:34] LABS: Basophils % (A) 0 %; Eosinophils # (A) 0.3 k/uL (0-0.7); Eosinophils % (A) 3 %; HCT 44.8 % (34.0-46.0); HGB 14.8 gm/dL (11.4-16.0); Lymphocytes # (A) 1.7 k/uL (1.0-4.8); Lymphocytes % (A) 21 %; MCH 31.2 pg (25.0-35.0); MCV 94.4 fL (80.0-100.0); Mean Platelet Volume 7.4; Monocytes # (A) 0.4 k/uL (0-1.0); Monocytes % (A) 5 %; Neutrophils # (A) 5.5 k/uL (1.3-7.7); Neutrophils % (A) 69 %; Platelet Count 283 k/uL (150-450); RBC 4.74 m/uL (3.80-5.40); RDW 12.3 % (11.5-15.5)
[2024-10-17] MEDS: RABIES VACCINE (PCEC) 2.5 UNIT KIT IM ONE (12:36)
[2024-10-17 12:45] LABS: ALT 21 U/L (4-34); AST 20 U/L (14-36); African American GFR (CKD) >90 (>60 ml/min/1.73 sqM); Albumin 3.8 g/dL (3.5-5.0); Alkaline Phosphatase 104 U/L (38-126); Anion Gap 5 mmol/L; Blood Urea Nitrogen 8 mg/dL (7-17); C Reactive Protein 0.6 mg/dL (<1.0); Calcium 8.5 mg/dL (8.4-10.2); Carbon Dioxide 22 mmol/L (22-30); Chloride 111 mmol/L (98-107); Glucose 91 mg/dL (74-99); Non-African American GFR(CKD) >90 (>60 ml/min/1.73 sqM); Potassium 4.1 mmol/L (3.5-5.1); Sodium 138 mmol/L (137-145); Total Bilirubin 1.2 mg/dL (0.2-1.3); Total Protein 6.8 g/dL (6.3-8.2)
[2024-10-17] MEDS: RABIES IMM GLOB 300 UNIT/2 ML VIAL IM ONE (13:01)
[2024-10-17] MEDS ORDERED: VANCOMYCIN IV PER PHARMACY 1 EACH MISC MISCELLANE PRN (13:25)
[2024-10-17] MEDS ORDERED: NALOXONE 0.4 MG/ML 1 ML VIAL IV PRN (13:37)
[2024-10-17] MEDS: AMPICILLIN-SULBACTAM 3 GM in SODIUM CHLORIDE 0.9% 100 ML IVPB SCH (13:48)
[2024-10-17] MEDS: SODIUM CHLORIDE 0.9% 1,000 ML IV SCH (14:54)
[2024-10-17] MEDS: VANCOMYCIN 1,500 MG in SODIUM CHLORIDE 0.9% 500 ML 500 ML IVPB ONE (14:56)
[2024-10-17] MEDS: KETOROLAC 15 MG/ML 1 ML VIAL IVP PRN (16:37)
--- NOTE | 2024-10-17 18:36 | P.HPIM ---
History of Present Illness H&P Date: 10/17/24 Chief Complaint: Cat bite left hand 28-year-old female with no significant past medical history, presenting to the ER with left hand infection. Patient states she was bit by a stray kitten yesterday and reports swelling, redness, and pain of left third digit. States she is having difficulty with range of motion of left third digit due to pain and swelling. Denies fevers, chills, vomiting. No other health conditions. Blood work reveals WBC of 8.2, hemoglobin of 14.8 and platelet count of 283, sodium 138, potassium 4.1, BUNs/creatinine of 8/0.57 X-ray reveals no acute process. Patient was given tetanus, rabies vaccine and rabies immunoglobulin. Review of Systems REVIEW OF SYSTEMS: CONSTITUTIONAL: No fever, no malaise, no fatigue. HEENT: No recent visual problems or hearing problems. Denied any sore throat. CARDIOVASCULAR: No chest pain, orthopnea, PND, no palpitations, no syncope. PULMONARY: No shortness of breath, no cough, no hemoptysis. GASTROINTESTINAL: No diarrhea, no nausea, no vomiting, no abdominal pain. NEUROLOGICAL: No headaches, no weakness, no numbness. HEMATOLOGICAL: Denies any bleeding or petechiae. GENITOURINARY: Denies any burning micturition, frequency, or urgency. MUSCULOSKELETAL/RHEUMATOLOGICAL: Denies any joint pain, swelling, or any muscle pain. ENDOCRINE: Denies any polyuria or polydipsia. The rest of the 14-point review of systems is negative. Past Medical History Past Medical History: No Reported History History of Any Multi-Drug Resistant Organisms: None Reported Past Surgical History: Cholecystectomy, Hernia Repair, Orthopedic Surgery Additional Past Surgical History / Comment(s): right foot Past Anesthesia/Blood Transfusion Reactions: Family History of Problems w/ Anesthesia, Postoperative Nausea & Vomiting (PONV) Additional Past Anesthesia/Blood Transfusion Reaction / Comment(s): grandma PONV Past Psychological History: No Psychological Hx Reported Smoking Status: Vaper Past Alcohol Use History: Occasional Past Drug Use History: Marijuana - Past Family History Father History Unknown: Yes Family Medical History: No Reported History Medications and Allergies Home Medications Medication Instructions Recorded Confirmed Type No Known Home Medications 10/17/24 10/17/24 History Allergies Allergy/AdvReac Type Severity Reaction Status Date / Time No Known Allergies Allergy Verified 10/17/24 11:06 Physical Exam Vitals: Vital Signs Temp Pulse Resp BP Pulse Ox 10/17/24 15:05 99.2 F 105 H 16 116/77 97 10/17/24 13:53 81 16 124/82 97 10/17/24 11:20 98.4 F 83 16 126/88 98 10/17/24 11:07 98.5 F 89 18 139/100 98 Intake and Output 10/17/24 10/17/24 10/17/24 06:59 14:59 22:59 Other: Weight 88.451 kg General appearance: alert, in no apparent distress Left Forearm Wrist exam: Present: normal inspection, full ROM. Absent: tenderness, swelling Hand Wrist exam: Present: tenderness, swelling. Absent: normal inspection (Diffuse erythema, edema, and tenderness to palpation left third digit. Multiple puncture wounds on third digit and first digit. full sensation and cap refill less than 2 seconds), full ROM (Limited range of motion of PIP and DIP joint of left third digit) Vascular: Present: normal capillary refill, radial pulse. Absent: vascular compromise Neurological exam: Present: alert, oriented X3 Psychiatric exam: Present: normal affect, normal mood Skin exam: Present: warm, dry, intact, normal color. Absent: rash Results CBC & Chem 7: 10/17/24 12:01 10/17/24 12:01 Labs: Abnormal Lab Results - Last 24 Hours (Table) 10/17/24 Range/Units 12:01 Chloride 111 H (98-107) mmol/L Assessment and Plan Assessment: Cellulitis left hand/cat bite - diffuse erythema, edema, and tenderness to left third digit with limited range of motion. Neurovascularly intact. X-ray reveals no acute process. -Patient received tetanus shot in the ED -Has been placed on IV Unasyn and vancomycin; Toradol 15 mg IV every 6 hours for pain control; IV fluids in form of normal saline at a rate of 75 cc an hour -We will consult hand surgery and ID for further evaluation -Monitor CBC, CRP and procalcitonin
[2024-10-17] MEDS: VANCOMYCIN 1,500 MG in SODIUM CHLORIDE 0.9% 500 ML 500 ML IVPB SCH (21:59)
--- NOTE | 2024-10-17 23:13 | P.CONS ---
History of Present Illness - Reason for Consult Consult date: 10/17/24 Left hand cat bite cellulitis Requesting physician: Elda Dyer - Chief Complaint Left hand swelling redness x 1 day - History of Present Illness Patient is a 28-year-old female with no significant past medical history presenting to the hospital for the left third digit pain swelling and redness that apparently been going on for about a day, apparently patient has been bitten by a stray kitten yesterday and this morning the patient did wake up with significant pain to the left third finger describing it to be sharp throbbing almost 10 out of 10 in severity with associated swelling redness and did have difficulty bending her left third finger there is no open wound or any drainage patient did have a low-grade fever of 99.2 mildly tachycardic but not hypotensive or hypoxic patient did have white count of 8.0 creatinine 0.57 x- rays of the hand did not show any acute abnormality patient was started on Unasyn and vancomycin infectious disease was consulted for further management of antibiotic therapy Review of Systems Positive point and negatives has been mentioned in the HPI, complete review of systems was performed and all other systems are negative Past Medical History Past Medical History: No Reported History History of Any Multi-Drug Resistant Organisms: None Reported Past Surgical History: Cholecystectomy, Hernia Repair, Orthopedic Surgery Additional Past Surgical History / Comment(s): right foot Past Anesthesia/Blood Transfusion Reactions: Family History of Problems w/ Anesthesia, Postoperative Nausea & Vomiting (PONV) Additional Past Anesthesia/Blood Transfusion Reaction / Comm: grandma PONV Past Psychological History: No Psychological Hx Reported Smoking Status: Vaper Past Alcohol Use History: Occasional Past Drug Use History: Marijuana - Past Family History Father History Unknown: Yes Family Medical History: No Reported History Medications and Allergies Home Medications Medication Instructions Recorded Confirmed Type No Known Home Medications 10/17/24 10/17/24 History Allergies Allergy/AdvReac Type Severity Reaction Status Date / Time No Known Allergies Allergy Verified 10/17/24 11:06 Physical Exam Vitals: Vital Signs Temp Pulse Resp BP Pulse Ox 10/17/24 13:53 81 16 124/82 97 10/17/24 11:20 98.4 F 83 16 126/88 98 10/17/24 11:07 98.5 F 89 18 139/100 98 Intake and Output 10/16/24 10/17/24 10/17/24 22:59 06:59 14:59 Other: Weight 88.451 kg GENERAL DESCRIPTION: Middle-aged female lying in bed, no distress. No tachypnea or accessory muscle of respiration use. HEENT: Shows Pallor , no scleral icterus. Oral mucous membrane is dry. No pharyngeal erythema or thrush NECK: Trachea central, no thyromegaly. LUNGS: Unlabored breathing. Clear to auscultation anteriorly. No wheeze or crackle. HEART: S1, S2, regular rate and rhythm. No loud murmur ABDOMEN: Soft, no tenderness , guarding or rigidity, no organomegaly EXTREMITIES: Left hand with swelling and redness which is warm and tender to touch no drainage SKIN: No rash, no masses palpable. NEUROLOGICAL: The patient is awake, alert, oriented x3, mood and affect normal. Results CBC & Chem 7: 10/17/24 12:01 10/17/24 12:01 Labs: Abnormal Lab Results - Last 24 Hours (Table) 10/17/24 Range/Units 12:01 Chloride 111 H (98-107) mmol/L Assessment and Plan (1) Cat bite Current Visit: Yes Status: Acute Code(s): W55.01XA - BITTEN BY CAT, INITIAL ENCOUNTER SNOMED Code(s): 559860341 (2) Cellulitis of left hand Current Visit: Yes Status: Acute Code(s): L03.114 - CELLULITIS OF LEFT UPPER LIMB SNOMED Code(s): 47805841595182930 Plan: 1patient presented hospital with left third finger pain and swelling redness after the patient had been bitten by cat day before presentation to the hospital with evidence of significant swelling and it is possible tenosynovitis and will need to cover for the polymicrobial oral faith of the Likely MRSA infection 2-patient benefit from hand surgery which has been consulted 3-Unasyn 3 g every 6 hours should provide adequate antibiotic coverage and no need for vancomycin will be discontinued We will follow on clinical condition and cultures to further adjust medication i f needed Thank you for this consultation we will follow the patient along with you Dictation was produced using Bizim[employer]ation software. please excuse any grammatical, word or spelling errors. Time with Patient: Greater than 30
[2024-10-18 07:48] LABS: Basophils % (A) 0 %; Eosinophils # (A) 0.2 k/uL (0-0.7); Eosinophils % (A) 2 %; HCT 42.1 % (34.0-46.0); HGB 13.9 gm/dL (11.4-16.0); Lymphocytes # (A) 1.9 k/uL (1.0-4.8); Lymphocytes % (A) 18 %; MCH 31.3 pg (25.0-35.0); MCV 94.7 fL (80.0-100.0); Mean Platelet Volume 7.7; Monocytes # (A) 0.7 k/uL (0-1.0); Monocytes % (A) 6 %; Neutrophils # (A) 7.5 k/uL (1.3-7.7); Neutrophils % (A) 73 %; Platelet Count 275 k/uL (150-450); RBC 4.44 m/uL (3.80-5.40); RDW 12.3 % (11.5-15.5); WBC 10.3 k/uL (3.8-10.6)
[2024-10-18 07:56] LABS: ALT 18 U/L (4-34); AST 19 U/L (14-36); African American GFR (CKD) >90 (>60 ml/min/1.73 sqM); Albumin 3.3 g/dL (3.5-5.0); Albumin/Globulin Ratio 1.2; Alkaline Phosphatase 92 U/L (38-126); Anion Gap 7 mmol/L; Blood Urea Nitrogen 5 mg/dL (7-17); Calcium 7.9 mg/dL (8.4-10.2); Carbon Dioxide 22 mmol/L (22-30); Chloride 109 mmol/L (98-107); Globulin 2.8 g/dL; Glucose 109 mg/dL (74-99); Non-African American GFR(CKD) >90 (>60 ml/min/1.73 sqM); Potassium 3.8 mmol/L (3.5-5.1); Sodium 138 mmol/L (137-145); Total Bilirubin 1.7 mg/dL (0.2-1.3); Total Protein 6.1 g/dL (6.3-8.2)
[2024-10-18 09:09] LABS: C Reactive Protein 3.8 mg/dL (<1.0)
--- NOTE | 2024-10-18 10:23 | P.CNOR ---
History of Present Illness - HPI Consult date: 10/18/24 Requesting physician: Goldy Morales History of present illness: Patient is a 28-year-old female who presented to the emergency department yesterday due to left hand infection. Patient was seen at bedside this morning on [address] [place] and states that she was at her grandparents house on Saturday when she was bitten by a stray kitten and has increased right middle finger and hand pain as well as swelling and redness. Patient notes increased pain when trying to fully extend the left third digit. Patient says she is having difficulty moving the third digit in the left hand and has noted increased swelling and pain over the past 48 hours. Patient denies any fever/chills. Patient also notes some new difficulties consisting of pain when moving the left wrist. X-ray of the left hand does not reveal any acute process. Negative for any fracture or abscess. Patient was given tetanus, r abies vaccine and rabies immunoglobulin. Past Medical History Past Medical History: No Reported History History of Any Multi-Drug Resistant Organisms: None Reported Past Surgical History: Cholecystectomy, Hernia Repair, Orthopedic Surgery Additional Past Surgical History / Comment(s): right foot Past Anesthesia/Blood Transfusion Reactions: Family History of Problems w/ Anesthesia, Postoperative Nausea & Vomiting (PONV) Additional Past Anesthesia/Blood Transfusion Reaction / Comm: grandma PONV Past Psychological History: No Psychological Hx Reported Smoking Status: Vaper Past Alcohol Use History: Occasional Past Drug Use History: Marijuana - Past Family History Father History Unknown: Yes Family Medical History: No Reported History Medications and Allergies Home Medications Medication Instructions Recorded Confirmed Type No Known Home Medications 10/17/24 10/17/24 History Allergies Allergy/AdvReac Type Severity Reaction Status Date / Time No Known Allergies Allergy Verified 10/17/24 11:06 Physical Examination Left third digit presents with moderate swelling. There is evident erythema surrounding the base of the third digit extending proximally into the left hand. Sensation is equal, symmetric, by intact throughout the upper extremities. There is tenderness to palpation throughout the third digit in the left hand extending into the base of the third digit and palm of the hand. Patient also has significant tenderness to palpation along the webspace on either side of the third digit. Patient does have limited range of motion in the left wrist in flexion so extension as well as in the third digit. Patient unable to fully extend third digit. Radial pulse intact, 2+ bilaterally. Cap refill under 3 seconds in digits of upper extremities. Negative Homans bilaterally. Results - Labs Labs: Abnormal Lab Results - Last 24 Hours (Table) 10/17/24 10/18/24 Range/Units 12: 07:22 Chloride 111 H 109 H (98-107) mmol/L BUN 5 L (7-17) mg/dL Creatinine 0.49 L (0.52-1.04) mg/dL Glucose 109 H (74-99) mg/dL Calcium 7.9 L (8.4-10.2) mg/dL Total Bilirubin 1.7 H (0.2-1.3) mg/dL C-Reactive Protein 3.8 H (<1.0) mg/dL Total Protein 6.1 L (6.3-8.2) g/dL Albumin 3.3 L (3.5-5.0) g/dL H & H 10/17/24 12 Range/Units 12: 07:22 Hgb 14.8 13.9 (11.4-16.0) gm/dL Hct 44.8 42.1 (34.0-46.0) % Result Diagrams: 10/18/24 07:22 10/18/24 07:22 - Diagnostic results Wrist/Hand x-ray: report reviewed, image reviewed (X-ray of the left hand is negative for any fracture or acute process. Negative for any dislocations or evident abscesses.) Assessment and Plan Assessment: 1. Left hand cat bite; cellulitis of the left hand; possible flexor tenosynovitis, left hand Plan: 1. Left hand cat bite; cellulitis of the left hand; possible flexor tenosynovitis, left hand -I did discuss the findings of the exam and imaging with my attending, Dr. Zapata. At this time due to the complex nature of the injury, including location in the hand, we have referred patient to be seen by orthopedic hand specialist. [place] on [address] has been notified and is consulting orthopedic hand specialist for urgent consult of left hand. Patient is encouraged to perform gentle range of motion exercises of the left hand while resting in bed. Infectious disease started the patient on antibiotics. Continue antibiotics at this time. Pain medication as needed. 2. Appreciate medical management 3. Pain management -Toradol 4. DVT and GI prophylaxis recommendations 5. PT/OT -perform gentle range of motion exercises of the left hand. Apply ice to the area as needed 6. Appreciate consult Time with Patient: Less than 30
--- NOTE | 2024-10-18 17:26 | P.PN ---
Subjective Progress Note Date: 10/18/24 28-year-old female with no significant past medical history, presenting to the ER with left hand infection. Patient states she was bit by a stray kitten yesterday and reports swelling, redness, and pain of left third digit. States she is having difficulty with range of motion of left third digit due to pain and swelling. Denies fevers, chills, vomiting. No other health conditions. Blood work reveals WBC of 8.2, hemoglobin of 14.8 and platelet count of 283, sodium 138, potassium 4.1, BUNs/creatinine of 8/0.57 X-ray reveals no acute process. Patient was given tetanus, rabies vaccine and rabies immunoglobulin. Patient has been evaluated by ID with following recommendations patient presented hospital with left third finger pain and swelling redness after the patient had been bitten by cat day before presentation to the hospital with evidence of significant swelling and it is possible tenosynovitis and will need to cover for the polymicrobial oral faith of the Likely MRSA infection -patient benefit from hand surgery which has been consulted -Unasyn 3 g every 6 hours should provide adequate antibiotic coverage and no need for vancomycin will be discontinued Objective - Vital Signs Vital signs: Vital Signs Temp 98.7 F 10/18/24 07:00 Pulse 84 10/18/24 07:00 Resp 14 10/18/24 07:00 BP 110/75 10/18/24 07:00 Pulse Ox 98 10/18/24 07:00 FiO2 Intake & Output 10/17/24 10/18/24 10/18/24 18:59 06:59 18:59 Intake Total 480 Balance 480 Weight 88.451 kg Intake: Oral 480 Other: # Voids 3 - Exam General appearance: alert, in no apparent distress Left Forearm Wrist exam: Present: normal inspection, full ROM. Absent: tenderness, swelling Hand Wrist exam: Present: tenderness, swelling. Absent: normal inspection (Diffuse erythema, edema, and tenderness to palpation left third digit. Multiple puncture wounds on third digit and first digit. full sensation and cap refill less than 2 seconds), full ROM (Limited range of motion of PIP and DIP joint of left third digit) Vascular: Present: normal capillary refill, radial pulse. Absent: vascular compromise Neurological exam: Present: alert, oriented X3 Psychiatric exam: Present: normal affect, normal mood Skin exam: Present: warm, dry, intact, normal color. Absent: rash - Labs CBC & Chem 7: 10/18/24 07:22 10/18/24 07:22 Labs: Abnormal Lab Results - Last 24 Hours (Table) 10/17/24 10/18/24 Range/Units 12:01 07:22 Chloride 111 H 109 H (98-107) mmol/L BUN 5 L (7-17) mg/dL Creatinine 0.49 L (0.52-1.04) mg/dL Glucose 109 H (74-99) mg/dL Calcium 7.9 L (8.4-10.2) mg/dL Total Bilirubin 1.7 H (0.2-1.3) mg/dL C-Reactive Protein 3.8 H (<1.0) mg/dL Total Protein 6.1 L (6.3-8.2) g/dL Albumin 3.3 L (3.5-5.0) g/dL Assessment and Plan Assessment: Cellulitis left hand/cat bite - diffuse erythema, edema, and tenderness to left third digit with limited range of motion. Neurovascularly intact. X-ray reveals no acute process. -Patient received tetanus shot in the ED -Has been placed on IV Unasyn and vancomycin; Toradol 15 mg IV every 6 hours for pain control; IV fluids in form of normal saline at a rate of 75 cc an hour -We will consult hand surgery and ID for further evaluation -Monitor CBC, CRP and procalcitonin
[2024-10-18] MEDS: HYDROmorphone 1 MG/ML 1 ML SYRINGE IVP PRN (17:29)
[2024-10-18] MEDS: ACETAMINOPHEN TAB 325 MG TAB PO PRN (20:52)
--- NOTE | 2024-10-18 23:38 | P.PN ---
Subjective Progress Note Date: 10/18/24 Principal diagnosis: Left third finger cat bite cellulitis/tenosynovitis Patient is a 28-year-old female with no significant past medical history presenting to the hospital for the left third digit pain swelling and redness that apparently been going on for about a day after the patient had been bitten by cat x-ray did not show any bony changes. On today's evaluation that is 10/18/2024, Patient did have a low-grade fever of 99.6 F at midnight the patient is afebrile since then patient is currently on room air and denies having any shortness of breath, the patient denies any chest pain or cough, the patient denies any nausea vomiting did not have any abdominal pain and no diarrhea, still complaining of pain and swelling to the left third finger but no worsening. Patient white count is 10.3 creatinine 0.49 CRP 3.8 Objective - Vital Signs Vital signs: Vital Signs Temp 98.7 F 10/18/24 07:00 Pulse 84 10/18/24 07:00 Resp 14 10/18/24 07:00 BP 110/75 10/18/24 07:00 Pulse Ox 98 10/18/24 07:00 FiO2 Intake & Output 10/17/24 10/18/24 10/18/24 18:59 06:59 18:59 Intake Total 480 Balance 480 Weight 88.451 kg Intake: Oral 480 Other: # Voids 3 - Exam GENERAL DESCRIPTION: Middle-age female lying in bed in no distress RESPIRATORY SYSTEM: Unlabored breathing , decreased breath sounds at bases HEART: S1 S2 regular rate and rhythm , ABDOMEN: Soft , no tenderness EXTREMITIES: Left middle finger did have some swelling redness no open wound or drainage - Labs CBC & Chem 7: 10/18/24 07:22 10/18/24 07:22 Labs: Abnormal Lab Results - Last 24 Hours (Table) 10/17/24 10/18/24 Range/Units 12:01 07:22 Chloride 111 H 109 H (98-107) mmol/L BUN 5 L (7-17) mg/dL Creatinine 0.49 L (0.52-1.04) mg/dL Glucose 109 H (74-99) mg/dL Calcium 7.9 L (8.4-10.2) mg/dL Total Bilirubin 1.7 H (0.2-1.3) mg/dL C-Reactive Protein 3.8 H (<1.0) mg/dL Total Protein 6.1 L (6.3-8.2) g/dL Albumin 3.3 L (3.5-5.0) g/dL Assessment and Plan (1) Cat bite Current Visit: Yes Status: Acute Code(s): W55.01XA - BITTEN BY CAT, INITIAL ENCOUNTER SNOMED Code(s): 657018535 (2) Cellulitis of left hand Current Visit: Yes Status: Acute Code(s): L03.114 - CELLULITIS OF LEFT UPPER LIMB SNOMED Code(s): 96659636763827802 Plan: 1patient presented hospital with left third finger pain and swelling redness after the patient had been bitten by cat day before presentation to the hospital with evidence of significant swelling and it is possible tenosynovitis and will need to cover for the polymicrobial oral faith of the Likely MRSA infection 2-patient will benefit from hand surgery which has been consulted, pending evaluation 3-patient will be treated with Unasyn 3 g every 6 hours and monitor clinical cou rse closely Dictation was produced using [employer] dictation software. please excuse any grammatical, word or spelling errors. Time with Patient: Less than 30
[2024-10-19 08:40] LABS: Blood Urea Nitrogen 5.2 mg/dL (9.0-27.0); Carbon Dioxide 22.7 mmol/L (21.6-31.8); Chloride 108 mmol/L (96-109); Glucose 110 mg/dL (70-110); Potassium 3.9 mmol/L (3.5-5.5); Sodium 141 mmol/L (135-145)
[2024-10-19 09:04] LABS: Basophils # (A) 0.06 X 10*3/uL (0.00-0.10); Basophils % (A) 0.6 %; Eosinophils # (A) 0.26 X 10*3/uL (0.04-0.35); Eosinophils % (A) 2.8 %; HGB 13.1 g/dL (12.0-15.0); Lymphocytes # (A) 2.03 X 10*3/uL (0.90-5.00); Lymphocytes % (A) 21.7 %; MCH 31.2 pg (27.0-32.0); MCHC 33.6 g/dL (32.0-37.0); MCV 92.9 FL (80.0-97.0); Mean Platelet Volume 10.4 FL (9.5-12.2); Monocytes # (A) 1.26 X 10*3/uL (0.20-1.00); Monocytes % (A) 13.5 %; NRBC Per 100 WBC 0 X 10*3/uL (0.00-0.01); Neutrophils # (A) 5.72 X 10*3/uL (1.80-7.70); Neutrophils % (A) 61.1 %; Platelet Count 258 X 10*3/uL (140-440); RDW 12.5 % (11.5-14.5); WBC 9.36 X 10*3/uL (4.50-10.00)
--- NOTE | 2024-10-19 09:07 | P.CNOR ---
History of Present Illness - HPI Consult date: 10/19/24 Consult reason: other (Left hand infection, s/p cat bite) History of present illness: The patient is a 28-year-old female who presented to the emergency department 2 days ago with a left hand infection. She was bitten by a stray cat on Saturday and had increasing swelling, redness and pain to the left little finger. Orthopedic hand surgery was consulted for further evaluation. Today, the patient states that her pain and swelling has much improved from yesterday. She is still having difficulty moving her left little finger but her other fingers and wrist pain is better. She is currently receiving Unasyn. Infectious disease is also the case. Review of Systems Constitutional: Denies chills, Denies fatigue, Denies fever Cardiovascular: Denies chest pain, Denies shortness of breath Respiratory: Denies cough Musculoskeletal: left: hand pain, hand stiffness, hand swelling Past Medical History Past Medical History: No Reported History History of Any Multi-Drug Resistant Organisms: None Reported Past Surgical History: Cholecystectomy, Hernia Repair, Orthopedic Surgery Additional Past Surgical History / Comment(s): right foot Past Anesthesia/Blood Transfusion Reactions: Family History of Problems w/ Anesthesia, Postoperative Nausea & Vomiting (PONV) Additional Past Anesthesia/Blood Transfusion Reaction / Comm: grandma PONV Past Psychological History: No Psychological Hx Reported Smoking Status: Vaper Past Alcohol Use History: Occasional Past Drug Use History: Marijuana - Past Family History Father History Unknown: Yes Family Medical History: No Reported History Medications and Allergies Home Medications Medication Instructions Recorded Confirmed Type No Known Home Medications 10/17/24 10/17/24 History Allergies Allergy/AdvReac Type Severity Reaction Status Date / Time No Known Allergies Allergy Verified 10/17/24 11:06 Physical Examination The patient is a 28-year-old female in no acute distress. She is alert and oriented 3. Exam of the left hand reveals diffuse swelling to the dorsum of the hand with some erythema. There are healing bite shah to the left index and middle fingers. No drainage. There is swelling to the left middle finger and the palm of the hand. Erythema seems to be localizing to the base of the left middle finger. The left middle finger can passively extend but with pain. T here is tenderness to palpation to the proximal phalanx and A1 esperanza areas of the left middle finger. No pain to the base of the hand or volar wrist. The other fingers remain non-tender. No proximal red streaking noted. Neurological and circulatory status is intact. Results X-ray of the left hand reveals no acute fracture. - Labs Labs: Abnormal Lab Results - Last 24 Hours (Table) 10/18/24 10/19/24 10/19/24 Range/Units 07:22 04:28 04:28 Monocytes # 1.26 H (0.20-1.00) X 10*3/uL BUN 5.2 L (9.0-27.0) mg/dL Creatinine 0.5 L (0.6-1.5) mg/dL BUN/Creatinine Ratio 10.40 L (12.00-20.00) Ratio Calcium 8.0 L (8.7-10.3) mg/dL C-Reactive Protein 3.8 H (<1.0) mg/dL Microbiology - Last 24 Hours (Table) 10/17/24 14:31 Blood Culture - Preliminary Blood H & H 10/17/24 10/18/24 10/19/24 Range/Units 12:01 07:22 04:28 Hgb 14.8 13.9 13.1 (11.4-16.0) gm/dL Hct 44.8 42.1 39.0 (34.0-46.0) % Result Diagrams: 10/19/24 04:28 10/19/24 04:28 Assessment and Plan (1) Cat bite Current Visit: Yes Status: Acute Code(s): W55.01XA - BITTEN BY CAT, INITIAL ENCOUNTER SNOMED Code(s): 086859665 (2) Cellulitis of left hand Current Visit: Yes Status: Acute Code(s): L03.114 - CELLULITIS OF LEFT UPPER LIMB SNOMED Code(s): 60675278481863694 Plan: The clinical and x-rays findings were discussed with the patient. The case was discussed with Dr. Ayon. No surgical intervention is planned today. She appears to be improving on currently antibiotics over the last 24 hours. We will let her eat today and NPO at midnight tonight. We will reassess in the morning if an I&D is needed depending on her symptoms and improvement in her hand/left middle finger. We will continue to follow the patient closely.
[2024-10-19] MEDS: HYDROcodone/APAP 5-325MG 1 EACH TAB PO PRN (13:12)
--- NOTE | 2024-10-19 17:13 | P.PN ---
Subjective 28-year-old female with no significant past medical history, presenting to the ER with left hand infection. Patient states she was bit by a stray kitten yesterday and reports swelling, redness, and pain of left third digit. States she is having difficulty with range of motion of left third digit due to pain and swelling. Denies fevers, chills, vomiting. No other health conditions. Blood work reveals WBC of 8.2, hemoglobin of 14.8 and platelet count of 283, sodium 138, potassium 4.1, BUNs/creatinine of 8/0.57 X-ray reveals no acute process. Patient was given tetanus, rabies vaccine and rabies immunoglobulin. Patient has been evaluated by ID with following recommendations patient presented hospital with left third finger pain and swelling redness after the patient had been bitten by cat day before presentation to the hospital with evidence of significant swelling and it is possible tenosynovitis and will need to cover for the polymicrobial oral faith of the Likely MRSA infection -patient benefit from hand surgery which has been consulted -Unasyn 3 g every 6 hours should provide adequate antibiotic coverage and no need for vancomycin will be discontinued 10/19/2024 Patient presents with left hand cellulitis after cat bite. Her hand is pretty swollen especially in the fingers and the distal part of the fall. The most swollen area is Proximal phalanx and the palm next to the palm Patient has also restriction in flexion. She states that this happened on and she came to the hospital on Saturday. Patient currently covered with Unasyn on normal saline 75 mL/h test is negative Elora added for pain control Hand surgeon evaluated the patient and are going to reassess tomorrow for need for I&D In the meantime she is kept on IV Unasyn Review of systems CONSTITUTIONAL: No fever, no malaise, no fatigue. HEENT: No recent visual problems or hearing problems. Denied any sore throat. CARDIOVASCULAR: No orthopnea, PND, no palpitations, no syncope. HEMATOLOGICAL: Denies any bleeding or petechiae. GENITOURINARY: Denies any burning micturition, frequency, or urgency. MUSCULOSKELETAL/RHEUMATOLOGICAL: Denies any joint pain, swelling, or any muscle pain. ENDOCRINE: Denies any polyuria or polydipsia. Active Medications Generic Name Dose Route Start Last Admin Trade Name Freq PRN Reason Stop Dose Admin Acetaminophen 650 mg 10/17/24 13:37 10/19/24 10:38 Acetaminophen Tab 325 Mg Tab PO 650 mg Q6HR PRN Administration Mild Pain or Fever > 100.5 Hydrocodone Bitart/Acetaminophen 1 each 10/19/24 12:40 10/19/24 13:12 Hydrocodone/Apap 5-325mg 1 Each Tab PO 1 each Q6HR PRN Administration Pain Hydromorphone HCl 1 mg 10/18/24 17:17 10/18/24 17:29 Hydromorphone 1 Mg/Ml 1 Ml Syringe IVP 1 mg Q4HR PRN Administration Severe Pain Ampicillin Sodium/Sulbactam 100 mls @ 200 mls/hr 10/17/24 14:00 10/19/24 13:1 2 Sodium 3 gm/ Sodium Chloride IVPB 200 mls/hr Q6H ANDRY Administration Protocol Sodium Chloride 1,000 mls @ 75 mls/hr 10/17/24 13:45 10/19/24 05:02 Saline 0.9% IV Not Given .[id number] [facility] Ketorolac Tromethamine 15 mg 10/17/24 13:37 10/19/24 08:53 Ketorolac 15 Mg/Ml 1 Ml Vial IVP 10/20/24 13:39 15 mg Q6HR PRN Administration Moderate Pain (Scale 4 to 6) Naloxone HCl 0.2 mg 10/17/24 13:37 Naloxone 0.4 Mg/Ml 1 Ml Vial IV Q2M PRN Opioid Reversal Ondansetron HCl 4 mg 10/17/24 13:37 Ondansetron 4 Mg/2 Ml Vial IVP Q8HR PRN Nausea And Vomiting Objective - Vital Signs Vital signs: Vital Signs Temp 98.3 F 10/19/24 14:01 Pulse 78 10/19/24 14:01 Resp 17 10/19/24 14:01 BP 108/69 10/19/24 14:01 Pulse Ox 98 10/19/24 14:01 FiO2 Intake & Output 10/18/24 10/19/24 10/19/24 18:59 06:59 18:59 Intake Total 118 118 Balance 118 118 Intake: Oral 118 118 Other: # Voids 3 1 - Exam GENERAL: The patient is alert and oriented x3, not in any acute distress. Well developed, well nourished. HEENT: Pupils are round and equally reacting to light. EOMI. No scleral icterus. No conjunctival pallor. Normocephalic, atraumatic. No pharyngeal erythema. No thyromegaly. CARDIOVASCULAR: S1 and S2 present. No murmurs, rubs, or gallops. PULMONARY: Chest is clear to auscultation, no wheezing , no crackles. ABDOMEN: Soft, nontender, nondistended, normoactive bowel sounds. No palpable organomegaly. MUSCULOSKELETAL: No joint swelling or deformity. -EXTREMITIES: No cyanosis, clubbing, or pedal edema. Left hand is swollen, tender and red mainly the palm and the fingers, and mostly at them middle finger area. Left third finger flexion is limited NEUROLOGICAL: Gross neurological examination did not reveal any focal deficits. SKIN: No rashes. no petechiae. - Labs CBC & Chem 7: 10/19/24 04:28 10/19/24 04:28 Labs: Abnormal Lab Results - Last 24 Hours (Table) 10/19/24 10/19/24 Range/Units 04:28 04:28 Monocytes # 1.26 H (0.20-1.00) X 10*3/uL BUN 5.2 L (9.0-27.0) mg/dL Creatinine 0.5 L (0.6-1.5) mg/dL BUN/Creatinine Ratio 10.40 L (12.00-20.00) Ratio Calcium 8.0 L (8.7-10.3) mg/dL Microbiology - Last 24 Hours (Table) 10/17/24 14:31 Blood Culture - Preliminary Blood Assessment and Plan Assessment: Left hand cellulitis secondary to cat bite Plan: Continue with IV Unasyn Infectious disease consult Orthopedic and hand surgery team consult Follow-up culture results Add Elora for pain control DVT prophylaxis. Patient is low risk. Continue with mechanical GI prophylaxis: No need Prognosis is guarded.
--- NOTE | 2024-10-20 08:30 | P.PN ---
Subjective Progress Note Date: 10/19/24 Principal diagnosis: Left third finger cat bite cellulitis/tenosynovitis Patient is a 28-year-old female with no significant past medical history presenting to the hospital for the left third digit pain swelling and redness that apparently been going on for about a day after the patient had been bitten by cat x-ray did not show any bony changes. On today's evaluation that is 10/19/2024, patient has been afebrile, patient is breathing comfortably and is currently on room air, patient denies having any significant cough no chest pain, patient denies nausea vomiting or diarrhea and no abdominal pain still complaint of pain and swelling to the left third finger although slightly decreased in intensity. Patient white count is 9.36 creatinine 0.5 blood cultures pending Objective - Vital Signs Vital signs: Vital Signs Temp 97.6 F 10/19/24 07:00 Pulse 65 10/19/24 07:00 Resp 16 10/19/24 07:00 BP 106/73 10/19/24 07:00 Pulse Ox 100 10/19/24 07:00 FiO2 Intake & Output 10/18/24 10/19/24 10/19/24 18:59 06:59 18:59 Intake Total 118 Balance 118 Intake: Oral 118 Other: # Voids 3 1 - Exam GENERAL DESCRIPTION: Middle-age female lying in bed in no distress RESPIRATORY SYSTEM: Unlabored breathing , decreased breath sounds at bases HEART: S1 S2 regular rate and rhythm , ABDOMEN: Soft , no tenderness EXTREMITIES: Left middle finger did have some swelling redness no open wound or drainage - Labs CBC & Chem 7: 10/19/24 04:28 10/19/24 04:28 Labs: Abnormal Lab Results - Last 24 Hours (Table) 10/19/24 10/19/24 Range/Units 04:28 04:28 Monocytes # 1.26 H (0.20-1.00) X 10*3/uL BUN 5.2 L (9.0-27.0) mg/dL Creatinine 0.5 L (0.6-1.5) mg/dL BUN/Creatinine Ratio 10.40 L (12.00-20.00) Ratio Calcium 8.0 L (8.7-10.3) mg/dL Microbiology - Last 24 Hours (Table) 10/17/24 14:31 Blood Culture - Preliminary Blood Assessment and Plan (1) Cat bite Current Visit: Yes Status: Acute Code(s): W55.01XA - BITTEN BY CAT, INITIAL ENCOUNTER SNOMED Code(s): 833930500 (2) Cellulitis of left hand Current Visit: Yes Status: Acute Code(s): L03.114 - CELLULITIS OF LEFT UPPER LIMB SNOMED Code(s): 01869682209558598 Plan: 1patient presented hospital with left third finger pain and swelling redness after the patient had been bitten by cat day before presentation to the hospital with evidence of significant swelling and it is possible tenosynovitis and will need to cover for the polymicrobial oral faith of the Likely MRSA infection 2-patient has been evaluated by hand surgery, currently not recommending any surgical intervention 3-patient to continue with Unasyn 3 g every 6 hours for another 24 to 48 hours if improvement may transition to oral otherwise may need IV antibiotics on discharge Dictation was produced using [employer] dictation software. please excuse any grammatical, word or spelling errors. Time with Patient: Less than 30
--- NOTE | 2024-10-20 09:16 | P.PN ---
Subjective Progress Note Date: 10/20/24 This is a 28-year-old female who is admitted for cellulitis of the left hand following a cat bite. Patient is seen and evaluated at bedside today. Patient states that her pain and swelling have not improved significantly. Patient reports difficulty moving the middle and ring fingers of the left hand. Patient also reports some pain and stiffness with wrist motion. Objective - Vital Signs Vital signs: Vital Signs Temp 98.3 F 10/20/24 07:46 Pulse 82 10/20/24 07:46 Resp 17 10/20/24 07:46 BP 121/78 10/20/24 07:46 Pulse Ox 98 10/20/24 07:46 FiO2 Intake & Output 10/19/24 10/20/24 10/20/24 18:59 06:59 18:59 Intake Total 118 Balance 118 Intake: Oral 118 Other: Voiding Method Toilet # Voids 1 1 - Exam On exam patient is resting comfortably in bed in no acute distress. Patient is alert and oriented 3. Left hand: There is mild to moderate swelling of the dorsal and volar aspects of the left hand. Patient has pain and difficulty with motion of the middle and ring fingers. Patient has good motion of the thumb, index finger and little finger. Patient has some stiffness with motion of the left wrist. There is no tenderness to palpation over the left wrist. There is mild erythema. The left upper extremity is warm and well-perfused. Sensation intact. Neurovascular status and circulatory status are intact. - Labs CBC & Chem 7: 10/19/24 04:28 10/19/24 04:28 Labs: Abnormal Lab Results - Last 24 Hours (Table) 10/19/24 Range/Units 04:28 Monocytes # 1.26 H (0.20-1.00) X 10*3/uL Microbiology - Last 24 Hours (Table) 10/17/24 14:31 Blood Culture - Preliminary Blood Assessment and Plan (1) Cat bite Current Visit: Yes Status: Acute Code(s): W55.01XA - BITTEN BY CAT, INITIAL ENCOUNTER SNOMED Code(s): 241699834 (2) Cellulitis of left hand Current Visit: Yes Status: Acute Code(s): L03.114 - CELLULITIS OF LEFT UPPER LIMB SNOMED Code(s): 56791034690680642 Plan: 1. Patient is n.p.o. today. 2. Patient has not had significant improvement with IV antibiotics. Planning for I&D of the left hand in the OR today with Dr Dave Stout. Discussed with the patient at bedside and addressed questions and concerns.
--- NOTE | 2024-10-20 10:47 | CT ---
EXAMINATION TYPE: CT hand LT w con CT DLP: 279 mGycm, Automated exposure control for dose reduction was used. DATE OF EXAM: 10/20/2024 10:34 AM COMPARISON: Left hand radiograph 10/17/2024 CLINICAL INDICATION:Female, 28 years old with history of eval for abscess; PHH, multiple cat bites fr om stray kitten. swelling to entire hand band middle finger TECHNIQUE: Axial images were obtained of the left hand after the uneventful administration of 100 mL of Isovue-300 intravenously. Additional coronal and sagittal reformatted images and soft tissue and b one window were obtained for review. 3-D reconstruction was created on a separate workstation. FINDINGS: There is no evidence of fracture, subluxation, or dislocation. No osseous erosions. Soft ti ssue swelling of the dorsal hand and third digit proximal phalanx. No soft tissue gas identified. The re is a nonenhancing tiny fluid collection along the palmar aspect of the flexor tendon surface measu ring 7 x 2 mm (series 11, image 27). Another questionable tiny nonenhancing fluid collection more dis tally along the proximal third phalanx tendon (series 11, image 20). No joint effusion. No radiopaque foreign body identified. The visualized vasculature appears patent. IMPRESSION: 1. No acute fracture or dislocation. No radiopaque foreign body. 2. Soft tissue swelling of the dorsal hand and proximal third digit. Small nonenhancing fluid collec tion along the palmar aspect of the third digit proximal phalanx flexor tendon concerning for abscess . Additional questionable tiny nonenhancing fluid collection just distal to this. [facility], , 10/20/2024 10:44 AM
[2024-10-20] MEDS: ONDANSETRON 4 MG/2 ML VIAL IVP PRN (11:27)
[2024-10-20] MEDS: RABIES VACCINE (PCEC) 2.5 UNIT KIT IM ONE (12:07)
--- NOTE | 2024-10-20 13:30 | P.PN ---
Subjective Progress Note Date: 10/20/24 Principal diagnosis: Left third finger cat bite cellulitis/tenosynovitis Patient is a 28-year-old female with no significant past medical history presenting to the hospital for the left third digit pain swelling and redness that apparently been going on for about a day after the patient had been bitten by cat x-ray did not show any bony changes. On today's evaluation that is 10/20/2024, Patient is afebrile this morning patient denies having any chest pain shortness of breath or cough, the patient is currently on room air, patient denies any abdominal pain no diarrhea no nausea no vomiting patient still complaining of pain to the base of the right third finger with associated swelling redness but no drainage. No new lab has been repeated today blood cultures are pending Objective - Vital Signs Vital signs: Vital Signs Temp 98.3 F 10/20/24 07:46 Pulse 82 10/20/24 07:46 Resp 17 10/20/24 08:00 BP 121/78 10/20/24 07:46 Pulse Ox 98 10/20/24 07:46 FiO2 Intake & Output 10/19/24 10/20/24 10/20/24 18:59 06:59 18:59 Intake Total 118 Balance 118 Intake: Oral 118 Other: Voiding Method Toilet Toilet # Voids 1 1 - Exam GENERAL DESCRIPTION: Middle-age female lying in bed in no distress RESPIRATORY SYSTEM: Unlabored breathing , decreased breath sounds at bases HEART: S1 S2 regular rate and rhythm , ABDOMEN: Soft , no tenderness EXTREMITIES: Left middle finger did have some swelling redness no open wound or drainage - Labs CBC & Chem 7: 10/19/24 04:28 10/19/24 04:28 Labs: Microbiology - Last 24 Hours (Table) 10/17/24 14:31 Blood Culture - Preliminary Blood Assessment and Plan (1) Cat bite Current Visit: Yes Status: Acute Code(s): W55.01XA - BITTEN BY CAT, INITIAL ENCOUNTER SNOMED Code(s): 586455038 (2) Cellulitis of left hand Current Visit: Yes Status: Acute Code(s): L03.114 - CELLULITIS OF LEFT UPPER LIMB SNOMED Code(s): 11142279994518590 Plan: 1patient presented hospital with left third finger pain and swelling redness after the patient had been bitten by cat day before presentation to the hospital with evidence of significant swelling and it is possible tenosynovitis and will need to cover for the polymicrobial oral faith of the Likely MRSA infection 2-patient has been evaluated by hand surgery, and apparently patient is going for surgical I&D this afternoon at which point deep culture should be obtained 3-patient to continue with Unasyn 3 g every 6 hours and discussed with the pharmacist so the patient can complete her rabies vaccination series Dictation was produced using [employer] dictation software. please excuse any grammatical, word or spelling errors. Time with Patient: Less than 30
[2024-10-20] MEDS: ONDANSETRON 4 MG/2 ML VIAL IVP ONE (17:21)
[2024-10-20] MEDS: DEXAMETHASONE SOD PHOSPHATE 4 MG/ML 1 ML VIAL IV ONE (17:22)
[2024-10-20] MEDS: IV FLUID CONTINUATION 1,000 ML IV ONE ×2 (17:32→19:55)
[2024-10-20] MEDS ORDERED: fentaNYL (PF) 50 MCG/ML 2 ML AMP ONE (18:18)
[2024-10-20] MEDS ORDERED: MIDAZOLAM 2 MG/2 ML VIAL ONE (18:18)
[2024-10-20] MEDS ORDERED: PROPOFOL 10 MG/ML 20 ML VIAL IV ONE (18:18)
[2024-10-20] MEDS ORDERED: KETAMINE HCL IN 0.9 % NACL 50 MG/5 ML SYRINGE ONE (18:18)
[2024-10-20] MEDS ORDERED: SUCCINYLCHOLINE CHLORIDE 200 MG/10 ML VIAL IV ONE (18:18)
[2024-10-20] MEDS: BUPIVACAINE (PF) 0.25% 30 ML VIAL SQ ONE ×2 (18:46→19:09)
[2024-10-20] MEDS: LACTATED RINGERS 1,000 ML IV ONE (19:09)
--- NOTE | 2024-10-20 19:34 | P.OP ---
Date of Procedure: 10/20/24 Preoperative Diagnosis: Left hand cat bite with concern for developing abscess to the left middle finger as well as concern for flexor tenosynovitis Postoperative Diagnosis: Left hand middle finger volar abscess overlying the proximal phalanx with associated flexor tenosynovitis Procedure(s) Performed: Left hand irrigation and debridement, drainage of left long finger abscess, irrigation and debridement of left long finger flexor tendon sheath Anesthesia: VICKY Surgeon: Dave Stout Estimated Blood Loss (ml): 10 Pathology: other (Fluid cultures) Condition: stable Disposition: PACU Indications for Procedure: Left hand cat bite with concerns for infection that has not responded to IV antibiotics, on exam today there was focal tenderness along the volar aspect of the proximal phalanx of the long finger with concern for developing abscess this was also confirmed with CT imaging, further exam showed concerns for possible involvement of the flexor tendon sheath Operative Findings: Superficial abscess to the left long finger at the volar aspect of the proximal phalanx there was signs of infection of the flexor tendon sheath with cloudy fluid noted at the proximal aspect of the sheath at the A1 esperanza as well as distally at the distal flexion crease at the level of the A5 esperanza Description of Procedure: Patient was brought to the operating room on a stretcher placed in the supine position general anesthesia was administered per the anesthesia team the left arm had a well-padded tourniquet placed to the upper arm this was inflated just prior to incision after gravity exsanguination, the left arm was then prepped and draped in the normal standard fashion and incision over the proximal edge of the A1 esperanza was made and dissection was carried down until the proximal aspect of the A1 esperanza was identified distal subcutaneous dissection was then performed distally to the level of the proximal phalanx where the previously identified site concerning for abscess was noted on the CT scan upon doing this purulent fluid was encountered and was expressed with manual compression of the digit at this time wound cultures were obtained. Next an incision was made in the distal flexion crease of the long finger dissection was taken down and the distal aspect of the flexor tendon sheath was entered at this point similar cloudy murky fluid was noted. A 16 Haitian angiocatheter was then inserted at the level of the A1 esperanza 100 cc of normal saline was then ran through the tendon sheath this was confirmed with emanation of the fluid from the distal incision site following this the digit was noted to be soft the superficial abscess site was then again irrigated with normal saline. The 2 incision sites were then loosely closed with 4-0 Prolene suture so that drainage could still occur. Sterile dressings were then applied. Patient tolerated the procedure well and was transferred to the PACU in stable condition Postoperatively patient will have a dressing change on postop day 1 She will begin 3 times daily Hibiclens soaks or very dilute Betadine soaks Patient should be nonweightbearing to the left hand in order to protect the incision sites Follow-up wound cultures
[2024-10-20] MEDS: HYDROmorphone 0.5 MG/0.5 ML SYRINGE IVP PRN (19:43)
[2024-10-20] MEDS: LACTATED RINGERS 1,000 ML IV SCH (19:46)
--- NOTE | 2024-10-20 23:04 | P.PN ---
Subjective 28-year-old female with no significant past medical history, presenting to the ER with left hand infection. Patient states she was bit by a stray kitten yesterday and reports swelling, redness, and pain of left third digit. States she is having difficulty with range of motion of left third digit due to pain and swelling. Denies fevers, chills, vomiting. No other health conditions. Blood work reveals WBC of 8.2, hemoglobin of 14.8 and platelet count of 283, sodium 138, potassium 4.1, BUNs/creatinine of 8/0.57 X-ray reveals no acute process. Patient was given tetanus, rabies vaccine and rabies immunoglobulin. Patient has been evaluated by ID with following recommendations patient presented hospital with left third finger pain and swelling redness after the patient had been bitten by cat day before presentation to the hospital with evidence of significant swelling and it is possible tenosynovitis and will need to cover for the polymicrobial oral faith of the Likely MRSA infection -patient benefit from hand surgery which has been consulted -Unasyn 3 g every 6 hours should provide adequate antibiotic coverage and no need for vancomycin will be discontinued 10/19/2024 Patient presents with left hand cellulitis after cat bite. Her hand is pretty swollen especially in the fingers and the distal part of the fall. The most swollen area is Proximal phalanx and the palm next to the palm Patient has also restriction in flexion. She states that this happened on and she came to the hospital on Saturday. Patient currently covered with Unasyn on normal saline 75 mL/h test is negative [place] added for pain control Hand surgeon evaluated the patient and are going to reassess tomorrow for need for I&D In the meantime she is kept on IV Unasyn 10/20 Overall swelling of the left hand without she still have significant swelling at the base of the middle finger. Patient underwent I&D by orthopedic team Objective - Vital Signs Vital signs: Vital Signs Temp 98.7 F 10/20/24 20:00 Pulse 106 H 10/20/24 20:20 Resp 16 10/20/24 20:20 BP 141/84 10/20/24 20:20 Pulse Ox 98 10/20/24 20:20 FiO2 Intake & Output 10/20/24 10/20/24 10/21/24 06:59 18:59 06:59 Intake Total 900 450 Output Total 2 Balance 900 448 Intake: IV 900 450 Output: Estimated Blood Loss 2 Other: Voiding Method Toilet Toilet Toilet # Voids 1 - Exam GENERAL: The patient is alert and oriented x3, not in any acute distress. Well developed, well nourished. HEENT: Pupils are round and equally reacting to light. EOMI. No scleral icterus. No conjunctival pallor. Normocephalic, atraumatic. No pharyngeal erythema. No thyromegaly. CARDIOVASCULAR: S1 and S2 present. No murmurs, rubs, or gallops. PULMONARY: Chest is clear to auscultation, no wheezing , no crackles. ABDOMEN: Soft, nontender, nondistended, normoactive bowel sounds. No palpable organomegaly. MUSCULOSKELETAL: No joint swelling or deformity. -EXTREMITIES: No cyanosis, clubbing, or pedal edema. Left hand is swollen, tender and red mainly the palm and the fingers, and mostly at them middle finger area. Left third finger flexion is limited NEUROLOGICAL: Gross neurological examination did not reveal any focal deficits. SKIN: No rashes. no petechiae. - Labs CBC & Chem 7: 10/19/24 04:28 10/19/24 04:28 Labs: Microbiology - Last 24 Hours (Table) 10/17/24 14:31 Blood Culture - Preliminary Blood Assessment and Plan Assessment: Left hand cellulitis secondary to cat bite Plan: Continue with IV Unasyn Infectious disease consult Orthopedic and hand surgery team consult Follow-up culture results Add [place] for pain control DVT prophylaxis. Patient is low risk. Continue with mechanical GI prophylaxis: No need Prognosis is guarded.
--- NOTE | 2024-10-21 08:45 | P.PN ---
Subjective Progress Note Date: 10/21/24 Principal diagnosis: Status post left middle finger I&D Hong is a 28 y/o female who is status post left middle finger I&D. Today is post op day #1. She is currently on Unasyn. She states her hand and finger pain has improved since surgery last night. Her wrist is also feeling better this morning. She states she slept better last night. No new complaints. Objective - Vital Signs Vital signs: Vital Signs Temp 97.5 F L 10/21/24 07:05 Pulse 70 10/21/24 07:05 Resp 16 10/21/24 07:05 BP 115/76 10/21/24 07:05 Pulse Ox 97 10/21/24 07:05 FiO2 Intake & Output 10/20/24 10/21/24 10/21/24 18:59 06:59 18:59 Intake Total 900 450 Output Total 2 Balance 900 448 Intake: IV 900 450 Output: Estimated Blood Loss 2 Other: Voiding Method Toilet Toilet # Voids 2 - Exam The patient is a 28 y/o female in no acute distress. She is alert and oriented x3. Exam of the left hand reveals an operative dressing that is clean and dry. She is able to wiggle her fingers without significant pain. Neurological and circulatory status is intact. - Labs CBC & Chem 7: 10/19/24 04:28 10/19/24 04:28 Labs: Microbiology - Last 24 Hours (Table) 10/17/24 14:31 Blood Culture - Preliminary Blood Assessment and Plan Assessment: Status post left middle finger I&D on 10/20/2024 (1) Cat bite Current Visit: Yes Status: Acute Code(s): W55.01XA - BITTEN BY CAT, INITIAL ENCOUNTER SNOMED Code(s): 118694075 (2) Cellulitis of left hand Current Visit: Yes Status: Acute Code(s): L03.114 - CELLULITIS OF LEFT UPPER LIMB SNOMED Code(s): 15860109094813559 Plan: The clinical and operative findings were discussed with the patient. The case was discussed with Dr. Stout. She will begin TID soaks of the left hand for 15 min with either Hibiclens or very dilute betadine solution in warm water (should be a light tea color) then apply adaptic, 4x4 gauze, cling wrap, and and amrita bandage applied after soaks. Encouraged gentle finger ROM while soaking. Continue pain control and IV antibiotics. Operative cultures are pending. A repeat CRP will be obtained tomorrow. We will continue to follow closely. Patient independently examined today, agree with the above exam, her pain is much improved today, her diffuse swelling has also improved, she had just completed a soak prior to my exam so dressings were left in place. will assess crp in am to trend from preop. NWB to left hand while incisions heal TID soaks continue unasyn await OR culture results
--- NOTE | 2024-10-21 12:33 | P.PN ---
Subjective Progress Note Date: 10/21/24 Principal diagnosis: Left third finger cat bite cellulitis/tenosynovitis Patient is a 28-year-old female with no significant past medical history presenting to the hospital for the left third digit pain swelling and redness that apparently been going on for about a day after the patient had been bitten by cat x-ray did not show any bony changes.Patient is status post left middle finger volar abscess and associated flexor tenosynovitis status post drainage of the abscess on 10/19/2024. On today's evaluation that is 10/21/2024,the patient denies any fever or any chi lls, patient is breathing comfortably on room air, the patient denies chest pain shortness of breath and no significant cough, patient denies abdominal pain, no nausea vomiting or diarrhea. Patient pain to the left hand has decreased in intensity postsurgery. No new lab has been obtained today cultures are currently pending Objective - Vital Signs Vital signs: Vital Signs Temp 97.5 F L 10/21/24 07:05 Pulse 70 10/21/24 07:05 Resp 16 10/21/24 08:00 BP 115/76 10/21/24 07:05 Pulse Ox 97 10/21/24 07:05 FiO2 Intake & Output 10/20/24 10/21/24 10/21/24 18:59 06:59 18:59 Intake Total 900 450 120 Output Total 2 Balance 900 448 120 Intake: IV 900 450 Oral 120 Output: Estimated Blood Loss 2 Other: Voiding Method Toilet Toilet Toilet # Voids 2 - Exam GENERAL DESCRIPTION: Middle-age female lying in bed in no distress RESPIRATORY SYSTEM: Unlabored breathing , decreased breath sounds at bases HEART: S1 S2 regular rate and rhythm , ABDOMEN: Soft , no tenderness EXTREMITIES: Left middle finger did have some swelling redness no open wound or drainage - Labs CBC & Chem 7: 10/19/24 04:28 10/19/24 04:28 Labs: Microbiology - Last 24 Hours (Table) 10/17/24 14:31 Blood Culture - Preliminary Blood Assessment and Plan (1) Cat bite Current Visit: Yes Status: Acute Code(s): W55.01XA - BITTEN BY CAT, INITIAL ENCOUNTER SNOMED Code(s): 635165135 (2) Cellulitis of left hand Current Visit: Yes Status: Acute Code(s): L03.114 - CELLULITIS OF LEFT UPPER LIMB SNOMED Code(s): 79303807614179345 Plan: 1patient presented hospital with left third finger pain and swelling redness after the patient had been bitten by cat day before presentation to the hospital with evidence of significant swelling and it is possible tenosynovitis and will need to cover for the polymicrobial oral faith of the Likely MRSA infection 2-patient patient is status post surgical I&D of the left third finger volar aspect abscess with there was evidence of tenosynovitis cultures currently pending 3-patient is treated with Unasyn 3 g every 6 hours we will wait for the culture to finalize determine discharge antibiotics Dictation was produced using [employer] dictation software. please excuse any grammatical, word or spelling errors. Time with Patient: Less than 30
--- NOTE | 2024-10-21 18:32 | P.PN ---
Subjective 28-year-old female with no significant past medical history, presenting to the ER with left hand infection. Patient states she was bit by a stray kitten yesterday and reports swelling, redness, and pain of left third digit. States she is having difficulty with range of motion of left third digit due to pain and swelling. Denies fevers, chills, vomiting. No other health conditions. Blood work reveals WBC of 8.2, hemoglobin of 14.8 and platelet count of 283, sodium 138, potassium 4.1, BUNs/creatinine of 8/0.57 X-ray reveals no acute process. Patient was given tetanus, rabies vaccine and rabies immunoglobulin. Patient has been evaluated by ID with following recommendations patient presented hospital with left third finger pain and swelling redness after the patient had been bitten by cat day before presentation to the hospital with evidence of significant swelling and it is possible tenosynovitis and will need to cover for the polymicrobial oral faith of the Likely MRSA infection -patient benefit from hand surgery which has been consulted -Unasyn 3 g every 6 hours should provide adequate antibiotic coverage and no need for vancomycin will be discontinued 10/19/2024 Patient presents with left hand cellulitis after cat bite. Her hand is pretty swollen especially in the fingers and the distal part of the fall. The most swollen area is Proximal phalanx and the palm next to the palm Patient has also restriction in flexion. She states that this happened on and she came to the hospital on Saturday. Patient currently covered with Unasyn on normal saline 75 mL/h test is negative [place] added for pain control Hand surgeon evaluated the patient and are going to reassess tomorrow for need for I&D In the meantime she is kept on IV Unasyn 10/20 Overall swelling of the left hand without she still have significant swelling at the base of the middle finger. Patient underwent I&D by orthopedic team 10/21 Patient is s/p I&D of the left hand and finger Extensive dressing and bandage on the left hand. Pain better controlled. Patient already feels better Follow-up wound culture Continue with antibiotic IV Unasyn. Patient is eating well lower IV fluid to 50 mL/h Objective - Vital Signs Vital signs: Vital Signs Temp 98.1 F 10/21/24 14:00 Pulse 84 10/21/24 14:00 Resp 18 10/21/24 14:00 BP 119/78 10/21/24 14:00 Pulse Ox 98 10/21/24 14:00 FiO2 Intake & Output 10/20/24 10/21/24 10/21/24 18:59 06:59 18:59 Intake Total 900 450 240 Output Total 2 Balance 900 448 240 Intake: IV 900 450 Oral 240 Output: Estimated Blood Loss 2 Other: Voiding Method Toilet Toilet Toilet # Voids 2 - Exam GENERAL: The patient is alert and oriented x3, not in any acute distress. Well developed, well nourished. HEENT: Pupils are round and equally reacting to light. EOMI. No scleral icterus. No conjunctival pallor. Normocephalic, atraumatic. No pharyngeal erythema. No thyromegaly. CARDIOVASCULAR: S1 and S2 present. No murmurs, rubs, or gallops. PULMONARY: Chest is clear to auscultation, no wheezing , no crackles. ABDOMEN: Soft, nontender, nondistended, normoactive bowel sounds. No palpable organomegaly. MUSCULOSKELETAL: No joint swelling or deformity. -EXTREMITIES: No cyanosis, clubbing, or pedal edema. Left hand wound is in full dressing NEUROLOGICAL: Gross neurological examination did not reveal any focal deficits. SKIN: No rashes. no petechiae. - Labs CBC & Chem 7: 10/19/24 04:28 10/19/24 04:28 Labs: Microbiology - Last 24 Hours (Table) 10/20/24 19:10 Gram Stain - Preliminary Hand - Left 10/20/24 19:10 Gram Stain - Preliminary Hand - Left 10/17/24 14:31 Blood Culture - Preliminary Blood Assessment and Plan Assessment: Left hand cellulitis secondary to cat bite. S/p I&D on 10/21 Plan: Continue with IV Unasyn Infectious disease consult Orthopedic and hand surgery team consult Follow-up culture results Add [place] for pain control DVT prophylaxis. Patient is low risk. Continue with mechanical GI prophylaxis: No need Prognosis is guarded.
--- NOTE | 2024-10-22 09:58 | P.PN ---
Subjective Progress Note Date: 10/22/24 Principal diagnosis: Status post left middle finger I&D Hong is a 28 y/o female who is status post left middle finger I&D. Today is post op day #2. She is currently on Unasyn. She states her hand and finger pain has continued to improved. She has been soaking the hand TID. No new complaints. Objective - Vital Signs Vital signs: Vital Signs Temp 98.6 F 10/22/24 08:00 Pulse 77 10/22/24 08:00 Resp 16 10/22/24 08:00 BP 115/82 10/22/24 08:00 Pulse Ox 99 10/22/24 08:00 FiO2 Intake & Output 10/21/24 10/22/24 10/22/24 18:59 06:59 18:59 Intake Total 240 540 Balance 240 540 Intake: Oral 240 540 Other: Voiding Method Toilet Toilet - Exam The patient is a 28 y/o female in no acute distress. She is alert and oriented x3. Exam of the left hand reveals a dressing that is clean and dry. She is able to wiggle her fingers without significant pain. Neurological and circulatory status is intact. - Labs CBC & Chem 7: 10/19/24 04:28 10/19/24 04:28 Labs: Microbiology - Last 24 Hours (Table) 10/20/24 19:10 Gram Stain - Preliminary Hand - Left Wound Culture - Preliminary 10/20/24 19:10 Gram Stain - Preliminary Hand - Left Wound Culture - Preliminary Assessment and Plan Assessment: Status post left middle finger I&D on 10/20/2024 (1) Cat bite Current Visit: Yes Status: Acute Code(s): W55.01XA - BITTEN BY CAT, INITIAL ENCOUNTER SNOMED Code(s): 875619086 (2) Cellulitis of left hand Current Visit: Yes Status: Acute Code(s): L03.114 - CELLULITIS OF LEFT UPPER LIMB SNOMED Code(s): 49203276775109527 Plan: The clinical findings were discussed with the patient. The case was discussed with Dr. Stout. She will begin TID soaks of the left hand for 15 min with either Hibiclens or very dilute betadine solution in warm water (should be a light tea color) then apply adaptic, 4x4 gauze, cling wrap, and and amrita bandage applied after soaks. Encouraged gentle finger ROM while soaking. Continue pain control and IV antibiotics. Operative cultures reveal no growth after 24 hours. CRP is pending. We will continue to follow closely. Patient was independently evaluated today her dressings were taken down her i ncision sites are well-appearing she has improved swelling to the proximal aspect of the left long finger she has improved tenderness at this area as well she still has limited motion of the digit but is able to tolerate gentle active and passive motion of the MP PIP and DIP joints of the digit, she has no drainage at her surgical sites she has no evidence of proximal spread of her infection into the hand or wrist. She has intact sensation throughout the hand CRP resulted from today shows decrease in her value from the preop level Wound cultures taken intraoperatively do not show any bacterial growth to date we will continue to continue to monitor these Continue with 3 times daily soaks of the left hand and application of clean dressings afterwards Should patient continue to clinically improve as well as show continued downtrending of her inflammatory markers we will look to try and discharge the patient tomorrow or Saturday. Sutures will be removed in our office 2 weeks following her surgery should her wounds be adequately healed
[2024-10-22] MEDS: polyethylene glycoL 3350 17 GM POWD.PACK PO PRN (13:27)
--- NOTE | 2024-10-22 21:41 | P.PN ---
Subjective 28-year-old female with no significant past medical history, presenting to the ER with left hand infection. Patient states she was bit by a stray kitten yesterday and reports swelling, redness, and pain of left third digit. States she is having difficulty with range of motion of left third digit due to pain and swelling. Denies fevers, chills, vomiting. No other health conditions. Blood work reveals WBC of 8.2, hemoglobin of 14.8 and platelet count of 283, sodium 138, potassium 4.1, BUNs/creatinine of 8/0.57 X-ray reveals no acute process. Patient was given tetanus, rabies vaccine and rabies immunoglobulin. Patient has been evaluated by ID with following recommendations patient presented hospital with left third finger pain and swelling redness after the patient had been bitten by cat day before presentation to the hospital with evidence of significant swelling and it is possible tenosynovitis and will need to cover for the polymicrobial oral faith of the Likely MRSA infection -patient benefit from hand surgery which has been consulted -Unasyn 3 g every 6 hours should provide adequate antibiotic coverage and no need for vancomycin will be discontinued 10/19/2024 Patient presents with left hand cellulitis after cat bite. Her hand is pretty swollen especially in the fingers and the distal part of the fall. The most swollen area is Proximal phalanx and the palm next to the palm Patient has also restriction in flexion. She states that this happened on and she came to the hospital on Saturday. Patient currently covered with Unasyn on normal saline 75 mL/h test is negative [place] added for pain control Hand surgeon evaluated the patient and are going to reassess tomorrow for need for I&D In the meantime she is kept on IV Unasyn 10/20 Overall swelling of the left hand without she still have significant swelling at the base of the middle finger. Patient underwent I&D by orthopedic team 10/21 Patient is s/p I&D of the left hand and finger Extensive dressing and bandage on the left hand. Pain better controlled. Patient already feels better Follow-up wound culture Continue with antibiotic IV Unasyn. Patient is eating well lower IV fluid to 50 mL/h 10/22 Hand infection continue to improve Still in dressing She eats well and IV fluid was discontinued She was complaining from constipation and laxative and stool softeners providing Continue with antibiotic Objective - Vital Signs Vital signs: Vital Signs Temp 98.1 F 10/22/24 18:52 Pulse 77 10/22/24 18:52 Resp 16 10/22/24 18:52 BP 112/76 10/22/24 18:52 Pulse Ox 99 10/22/24 18:52 FiO2 Intake & Output 10/22/24 10/22/24 10/23/24 06:59 18:59 06:59 Intake Total 540 Balance 540 Intake: Oral 540 Other: Voiding Method Toilet Toilet # Voids 3 - Exam GENERAL: The patient is alert and oriented x3, not in any acute distress. Well developed, well nourished. HEENT: Pupils are round and equally reacting to light. EOMI. No scleral icterus. No conjunctival pallor. Normocephalic, atraumatic. No pharyngeal erythema. No thyromegaly. CARDIOVASCULAR: S1 and S2 present. No murmurs, rubs, or gallops. PULMONARY: Chest is clear to auscultation, no wheezing , no crackles. ABDOMEN: Soft, nontender, nondistended, normoactive bowel sounds. No palpable organomegaly. MUSCULOSKELETAL: No joint swelling or deformity. -EXTREMITIES: No cyanosis, clubbing, or pedal edema. Left hand wound is in full dressing NEUROLOGICAL: Gross neurological examination did not reveal any focal deficits. SKIN: No rashes. no petechiae. - Labs CBC & Chem 7: 10/19/24 04:28 10/19/24 04:28 Labs: Abnormal Lab Results - Last 24 Hours (Table) 10/22/24 Range/Units 04:59 C-Reactive Protein 2.70 H (0.00-0.80) mg/dL Microbiology - Last 24 Hours (Table) 10/20/24 19:10 Gram Stain - Final Hand - Left Wound Culture - Final 10/20/24 19:10 Gram Stain - Final Hand - Left Wound Culture - Final Assessment and Plan Assessment: Left hand cellulitis secondary to cat bite. S/p I&D on 10/21 Plan: Continue with IV Unasyn Infectious disease consult Orthopedic and hand surgery team consult Follow-up culture results Add [place] for pain control DVT prophylaxis. Patient is low risk. Continue with mechanical GI prophylaxis: No need Prognosis is guarded.
--- NOTE | 2024-10-23 11:11 | P.PN ---
Subjective Progress Note Date: 10/22/24 Principal diagnosis: Left third finger cat bite cellulitis/tenosynovitis Patient is a 28-year-old female with no significant past medical history presenting to the hospital for the left third digit pain swelling and redness that apparently been going on for about a day after the patient had been bitten by cat x-ray did not show any bony changes.Patient is status post left middle finger volar abscess and associated flexor tenosynovitis status post drainage of the abscess on 10/19/2024. On today's evaluation that is 10/22/2024,the patient remains to be afebrile, pa hont is on room air not requiring supplemental oxygen and denies any shortness of breath no chest pain or cough.Patient denies having any nausea or vomiting, no abdominal pain and no diarrhea pain to the left third finger has decreased in intensity no drainage. Patient did have a CRP of 2.70 cultures are currently pending Objective - Vital Signs Vital signs: Vital Signs Temp 98.6 F 10/22/24 08:00 Pulse 77 10/22/24 08:00 Resp 16 10/22/24 08:00 BP 115/82 10/22/24 08:00 Pulse Ox 99 10/22/24 08:00 FiO2 Intake & Output 10/21/24 10/22/24 10/22/24 18:59 06:59 18:59 Intake Total 240 540 Balance 240 540 Intake: Oral 240 540 Other: Voiding Method Toilet Toilet Toilet - Exam GENERAL DESCRIPTION: Middle-age female lying in bed in no distress RESPIRATORY SYSTEM: Unlabored breathing , decreased breath sounds at bases HEART: S1 S2 regular rate and rhythm , ABDOMEN: Soft , no tenderness EXTREMITIES: Left middle finger and palm area swelling has decreased no open wound or drainage - Labs CBC & Chem 7: 10/19/24 04:28 10/19/24 04:28 Labs: Abnormal Lab Results - Last 24 Hours (Table) 10/22/24 Range/Units 04:59 C-Reactive Protein 2.70 H (0.00-0.80) mg/dL Microbiology - Last 24 Hours (Table) 10/20/24 19:10 Gram Stain - Preliminary Hand - Left Wound Culture - Preliminary 10/20/24 19:10 Gram Stain - Preliminary Hand - Left Wound Culture - Preliminary Assessment and Plan (1) Cat bite Current Visit: Yes Status: Acute Code(s): W55.01XA - BITTEN BY CAT, INITIAL ENCOUNTER SNOMED Code(s): 599193817 (2) Cellulitis of left hand Current Visit: Yes Status: Acute Code(s): L03.114 - CELLULITIS OF LEFT UPPER LIMB SNOMED Code(s): 13965599644251490 Plan: 1patient presented hospital with left third finger pain and swelling redness after the patient had been bitten by cat day before presentation to the hospital with evidence of significant swelling and it is possible tenosynovitis and will need to cover for the polymicrobial oral faith of the Likely MRSA infection 2-patient patient is status post surgical I&D of the left third finger volar aspect abscess with there was evidence of tenosynovitis cultures currently [place] 3-patient slowly clinically improving patient will be treated with Unasyn 3 g every 6 hours while waiting for the culture to finalize to determine discharge antibiotics Dictation was produced using [employer] dictation software. please excuse any grammatical, word or spelling errors. Time with Patient: Less than 30
[2024-10-23 12:58] VITALS: BMI 34.5
--- NOTE | 2024-10-23 13:01 | P.PN ---
Subjective 28-year-old female with no significant past medical history, presenting to the ER with left hand infection. Patient states she was bit by a stray kitten yesterday and reports swelling, redness, and pain of left third digit. States she is having difficulty with range of motion of left third digit due to pain and swelling. Denies fevers, chills, vomiting. No other health conditions. Blood work reveals WBC of 8.2, hemoglobin of 14.8 and platelet count of 283, sodium 138, potassium 4.1, BUNs/creatinine of 8/0.57 X-ray reveals no acute process. Patient was given tetanus, rabies vaccine and rabies immunoglobulin. Patient has been evaluated by ID with following recommendations patient presented hospital with left third finger pain and swelling redness after the patient had been bitten by cat day before presentation to the hospital with evidence of significant swelling and it is possible tenosynovitis and will need to cover for the polymicrobial oral faith of the Likely MRSA infection -patient benefit from hand surgery which has been consulted -Unasyn 3 g every 6 hours should provide adequate antibiotic coverage and no need for vancomycin will be discontinued 10/19/2024 Patient presents with left hand cellulitis after cat bite. Her hand is pretty swollen especially in the fingers and the distal part of the fall. The most swollen area is Proximal phalanx and the palm next to the palm Patient has also restriction in flexion. She states that this happened on and she came to the hospital on Saturday. Patient currently covered with Unasyn on normal saline 75 mL/h test is negative Cathlamet added for pain control Hand surgeon evaluated the patient and are going to reassess tomorrow for need for I&D In the meantime she is kept on IV Unasyn 10/20 Overall swelling of the left hand without she still have significant swelling at the base of the middle finger. Patient underwent I&D by orthopedic team 10/21 Patient is s/p I&D of the left hand and finger Extensive dressing and bandage on the left hand. Pain better controlled. Patient already feels better Follow-up wound culture Continue with antibiotic IV Unasyn. Patient is eating well lower IV fluid to 50 mL/h 10/22 Hand infection continue to improve Still in dressing She eats well and IV fluid was discontinued She was complaining from constipation and laxative and stool softeners providing Continue with antibiotic 10/23 Left hand wound remains in dressing, swelling and tenderness still to improve slowly and gradually She did have bowel movement, she will try MiraLAX today. Will give also small dose of lactulose On normal saline 50 mL/h Objective - Vital Signs Vital signs: Vital Signs Temp 98.3 F 10/23/24 07:32 Pulse 69 10/23/24 07:32 Resp 16 10/23/24 07:32 BP 119/78 10/23/24 07:32 Pulse Ox 99 10/23/24 07:32 FiO2 Intake & Output 10/22/24 10/23/24 10/23/24 18:59 06:59 18:59 Weight 88.451 kg Other: Voiding Method Toilet Toilet Toilet # Voids 3 5 - Exam GENERAL: The patient is alert and oriented x3, not in any acute distress. Well developed, well nourished. HEENT: Pupils are round and equally reacting to light. EOMI. No scleral icterus. No conjunctival pallor. Normocephalic, atraumatic. No pharyngeal erythema. No thyromegaly. CARDIOVASCULAR: S1 and S2 present. No murmurs, rubs, or gallops. PULMONARY: Chest is clear to auscultation, no wheezing , no crackles. ABDOMEN: Soft, nontender, nondistended, normoactive bowel sounds. No palpable organomegaly. MUSCULOSKELETAL: No joint swelling or deformity. -EXTREMITIES: No cyanosis, clubbing, or pedal edema. Left hand wound is in full dressing NEUROLOGICAL: Gross neurological examination did not reveal any focal deficits. SKIN: No rashes. no petechiae. - Labs CBC & Chem 7: 10/19/24 04:28 10/19/24 04:28 Labs: Abnormal Lab Results - Last 24 Hours (Table) 10/23/24 Range/Units 05:34 C-Reactive Protein 2.00 H (0.00-0.80) mg/dL Microbiology - Last 24 Hours (Table) 10/17/24 14:31 Blood Culture - Final Blood 10/20/24 19:10 Anaerobic Culture - Preliminary Hand - Left 10/20/24 19:10 Anaerobic Culture - Preliminary Hand - Left 10/20/24 19:10 Gram Stain - Final Hand - Left Wound Culture - Final 10/20/24 19:10 Gram Stain - Final Hand - Left Wound Culture - Final Assessment and Plan Assessment: Left hand cellulitis secondary to cat bite. S/p I&D on 10/21 Plan: Continue with IV Unasyn Infectious disease consult Orthopedic and hand surgery team consult Follow-up culture results Add Cathlamet for pain control DVT prophylaxis. Patient is low risk. Continue with mechanical GI prophylaxis: No need Prognosis is guarded.
[2024-10-23] MEDS: LACTULOSE 20 GM/30 ML CUP PO ONE (13:55)
--- NOTE | 2024-10-23 15:51 | P.PN ---
Subjective Progress Note Date: 10/23/24 Principal diagnosis: Left third finger cat bite cellulitis/tenosynovitis Patient is a 28-year-old female with no significant past medical history presenting to the hospital for the left third digit pain swelling and redness that apparently been going on for about a day after the patient had been bitten by cat x-ray did not show any bony changes.Patient is status post left middle finger volar abscess and associated flexor tenosynovitis status post drainage of the abscess on 10/19/2024. On today's evaluation that is 10/23/2024, the patient continues to be afebrile, the patient is on room air and breathing comfortably, the Pt denies having any chest pain or cough, the patient denies having any abdominal pain no vomiting or any diarrhea, mention she did have pain to the left hand last night but doing better this morning. Patient did have a CRP of 2.0 today culture have been negative so far Objective - Vital Signs Vital signs: Vital Signs Temp 98.3 F 10/23/24 07:32 Pulse 69 10/23/24 07:32 Resp 16 10/23/24 07:32 BP 119/78 10/23/24 07:32 Pulse Ox 99 10/23/24 07:32 FiO2 Intake & Output 10/22/24 10/23/24 10/23/24 18:59 06:59 18:59 Other: Voiding Method Toilet Toilet # Voids 3 5 - Exam GENERAL DESCRIPTION: Middle-age female lying in bed in no distress RESPIRATORY SYSTEM: Unlabored breathing , decreased breath sounds at bases HEART: S1 S2 regular rate and rhythm , ABDOMEN: Soft , no tenderness EXTREMITIES: Left middle finger and palm area swelling has decreased no open wound or drainage - Labs CBC & Chem 7: 10/19/24 04:28 10/19/24 04:28 Labs: Abnormal Lab Results - Last 24 Hours (Table) 10/23/24 Range/Units 05:34 C-Reactive Protein 2.00 H (0.00-0.80) mg/dL Microbiology - Last 24 Hours (Table) 10/17/24 14:31 Blood Culture - Final Blood 10/20/24 19:10 Anaerobic Culture - Preliminary Hand - Left 10/20/24 19:10 Anaerobic Culture - Preliminary Hand - Left 10/20/24 19:10 Gram Stain - Final Hand - Left Wound Culture - Final 10/20/24 19:10 Gram Stain - Final Hand - Left Wound Culture - Final Assessment and Plan (1) Cat bite Current Visit: Yes Status: Acute Code(s): W55.01XA - BITTEN BY CAT, INITIAL ENCOUNTER SNOMED Code(s): 898983218 (2) Cellulitis of left hand Current Visit: Yes Status: Acute Code(s): L03.114 - CELLULITIS OF LEFT UPPER LIMB SNOMED Code(s): 38475097548928695 Plan: 1patient presented hospital with left third finger pain and swelling redness after the patient had been bitten by cat day before presentation to the hospital with evidence of significant swelling and it is possible tenosynovitis and will need to cover for the polymicrobial oral faith of the Likely MRSA infection 2-patient patient is status post surgical I&D of the left third finger volar aspect abscess with there was evidence of tenosynovitis cultures so far negative 3-patient local culture have been negative for resistant pathogen so far, will be treated with Unasyn 3 g every 6 hours while inpatient finishing therapy with oral Augmentin prescription sent to the pharmacy Dictation was produced using [employer] dictation software. please excuse any grammatical, word or spelling errors. Time with Patient: Less than 30
--- NOTE | 2024-10-24 08:55 | P.PN ---
Progress Note - Text Progress Note Date: 10/23/24 Patient examined today dressings were removed and the incision sites are well- appearing there is no active drainage noted from either incision site she has improved tenderness to palpation along the finger in the palm she still has moderate swelling throughout the long finger as well as the distal aspect of her palm but there is no evidence of proximal extension of erythema. She noted some wrist discomfort overnight however today she is able to move it actively and with passive motion there is no significant pain there is no tenderness over the carpal tunnel area. She remains neurovascularly intact throughout the left hand. She continues to have limited active motion of the long finger due to discomfort and swelling but passive motion able to achieve full extension of the digit and roughly 50% of composite flexion without pain Continue IV antibiotics for another day CRP has down trended clinical exam remains reassuring that the infection is not spreading throughout the hand Anticipate discharge on oral antibiotics over the weekend as long as her clinical exam continues to be improving Appreciate infectious disease input on outpatient antibiotic choice
--- NOTE | 2024-10-24 10:21 | P.PN ---
Progress Note - Text Progress Note Date: 10/24/24 Patient is clear to discharge from an orthopdic standopint. She will continue on oral Antibiotics per Dr. Hopper in infectious disease. She will follow-up with Dr. Dave Stout at [facility] on 10/29/2024 or 10/30/2024. She will need to call the office Saturday at [phone] for her appointment. She may continue dressing changes at home at least daily after soaks are done and may change more often for drainage if needed. She should continue to work on gentle range of motion of the fingers as tolerated. At this time she may discontinue soaks in order to allow incision sites to dry, patient will remain overnight for additional pain control and IV abx. As long a s no acute worsening of clinical exam will plan for discharge Saturday if medicine and ID agree.
[2024-10-24] MEDS: RABIES VACCINE (PCEC) 2.5 UNIT KIT IM ONE (12:49)
--- NOTE | 2024-10-24 13:04 | P.PN ---
Progress Note - Text Progress Note Date: 10/24/24 Orthopedics: History of present illness: Patient is very pleasant 28-year-old female who is seen examined at bedside for follow-up evaluation of her left hand. She is status post left middle finger incision and drainage. She continues to have improvement since yesterday. She continues with antibiotics per infectious disease. She was continuing with hand soaks 3 times daily. This has been discontinued by infectious disease. They would like the wound site to have some open air. She continues to have some pain at her left hand. She has difficulty with active range of motion of her left middle finger. She is neurovascular tact left upper extremity. She is able to wiggle other fingers of her left hand. She feels her symptoms have significantly improved since the admittance to the hospital. She has no other complaints at the bedside. Currently, if cleared by infectious disease and medicine, they are planning for discharge home tomorrow. Physical Exam: Patient is awake, alert, and oriented 3 Vital signs stable Good chest excursion with deep inspiration and expiration Dressing has been removed over the left hand Continued limited range of motion of the left middle finger Surgical incision sites are clean, dry, and intact Some tenderness with palpation over the left middle finger and palm of the left hand Continued swelling over the left middle finger and some swelling in the left palm No proximal extension of erythema Neurovascular intact left upper extremity No pain with palpation over the left wrist or left forearm Assessment: Status post left middle finger incision and drainage performed on 10/20/2024 Left hand cellulitis Status post cat bite Left hand pain Plan: 1. Patient will continue with antibiotics per infectious disease. Daily soaks 3 times daily have been discontinued per infectious disease. She may currently keep her surgical site undressed and open to the air per recommendations of infectious disease. Patient will continue remain in the hospital for 1 more day per recommendations of infectious disease. If the patient continues to improve and is cleared by medicine and infectious disease, patient will be planned for discharge home tomorrow. Following discharge, she will plan to follow-up with Dr. Stout at [facility] on , 10/29/2024, or 10/30/2024 for further evaluation. At the time of discharge, she will continue with antibiotic medication per the recommendations of infectious disease.
--- NOTE | 2024-10-24 14:05 | P.PN ---
Subjective Progress Note Date: 10/24/24 28-year-old female with no significant past medical history, presenting to the ER with left hand infection. Patient states she was bit by a stray kitten yesterday and reports swelling, redness, and pain of left third digit. States she is having difficulty with range of motion of left third digit due to pain and swelling. Denies fevers, chills, vomiting. No other health conditions. Blood work reveals WBC of 8.2, hemoglobin of 14.8 and platelet count of 283, sodium 138, potassium 4.1, BUNs/creatinine of 8/0.57 X-ray reveals no acute process. Patient was given tetanus, rabies vaccine and rabies immunoglobulin. Patient has been evaluated by ID with following recommendations patient presented hospital with left third finger pain and swelling redness after the patient had been bitten by cat day before presentation to the hospital with evidence of significant swelling and it is possible tenosynovitis and will need to cover for the polymicrobial oral faith of the Likely MRSA infection -patient benefit from hand surgery which has been consulted -Unasyn 3 g every 6 hours should provide adequate antibiotic coverage and no need for vancomycin will be discontinued 10/19/2024 Patient presents with left hand cellulitis after cat bite. Her hand is pretty swollen especially in the fingers and the distal part of the fall. The most swollen area is Proximal phalanx and the palm next to the palm Patient has also restriction in flexion. She states that this happened on and she came to the hospital on Saturday. Patient currently covered with Unasyn on normal saline 75 mL/h test is negative Hulbert added for pain control Hand surgeon evaluated the patient and are going to reassess tomorrow for need for I&D In the meantime she is kept on IV Unasyn 10/20 Overall swelling of the left hand without she still have significant swelling at the base of the middle finger. Patient underwent I&D by orthopedic team 10/21 Patient is s/p I&D of the left hand and finger Extensive dressing and bandage on the left hand. Pain better controlled. Patient already feels better Follow-up wound culture Continue with antibiotic IV Unasyn. Patient is eating well lower IV fluid to 50 mL/h 10/22 Hand infection continue to improve Still in dressing She eats well and IV fluid was discontinued She was complaining from constipation and laxative and stool softeners providing Continue with antibiotic 10/23 Left hand wound remains in dressing, swelling and tenderness still to improve slowly and gradually She did have bowel movement, she will try MiraLAX today. Will give also small dose of lactulose On normal saline 50 mL/h 10/24: patient seen and evaluated at bedside, blood work reviewed CRP 2.7 trending down from 3.8, does c/o hand discomfort EXAM GENERAL: The patient is alert and oriented x3 HEENT: Normocephalic, atraumatic. CARDIOVASCULAR: S1 and S2 present. No murmurs, rubs, or gallops. PULMONARY: Chest is clear to auscultation, no wheezing , no crackles. MUSCULOSKELETAL: No joint swelling EXTREMITIES: No cyanosis, clubbing, or pedal edema. Left hand wound sticthes intact, swelling noted, erythema better NEUROLOGICAL: Gross neurological examination did not reveal any focal deficits. SKIN: Erythema Improved , wound bandage Assessment and Plan Left hand cellulitis secondary to cat bite. S/p I&D on 10/21 Left hand middle finger volar abscess overlying the proximal phalanx with as sociated flexor tenosynovitis Continue with IV Unasyn Infectious disease consult Orthopedic and hand surgery team consult Follow-up culture results Wound care She will continue soaks at home through Saturday. Three times daily. May stop on SaturdayOctober 26. She may continue dressing changes at home at least daily after soaks are done and may change more often for drainage if needed. She should continue to work on gentle range of motion of the fingers as tolerated. She will continue on oral Antibiotics per Dr. Hopper in infectious disease. She will follow-up with Dr. Dave Stout at [facility] on 10/29/2024 or 10/30/2024. She will need to call the office Saturday at [phone] for her appointment. Objective - Vital Signs Vital signs: Vital Signs Temp 98.4 F 10/24/24 08:00 Pulse 68 10/24/24 08:00 Resp 16 10/24/24 08:00 BP 124/76 10/24/24 08:00 Pulse Ox 99 10/24/24 08:00 FiO2 Intake & Output 10/23/24 10/24/24 10/24/24 18:59 06:59 18:59 Intake Total 118 Balance 118 Weight 88.451 kg Intake: Oral 118 Other: Voiding Method Toilet Toilet # Voids 3 - Labs CBC & Chem 7: 10/19/24 04:28 10/19/24 04:28 Labs: Abnormal Lab Results - Last 24 Hours (Table) 10/23/24 10/24/24 Range/Units 05:34 05:00 C-Reactive Protein 2.00 H 2.7 H (0.00-0.80) mg/dL
--- NOTE | 2024-10-24 14:29 | P.PN ---
Subjective Progress Note Date: 10/24/24 Principal diagnosis: Left third finger cat bite cellulitis/tenosynovitis Patient is a 28-year-old female with no significant past medical history presenting to the hospital for the left third digit pain swelling and redness that apparently been going on for about a day after the patient had been bitten by cat x-ray did not show any bony changes.Patient is status post left middle finger volar abscess and associated flexor tenosynovitis status post drainage of the abscess on 10/19/2024. On today's evaluation that is 10/24/2024, patient did not have any fever and de nies any chills, patient is breathing comfortably on room air, patient with no chest pain or cough patient did not have any abdominal pain nausea vomiting or any loose stools still complaining of pain to the palm of the right hand. Patient did have a CRP of 2.7 no CBC was done, cultures negative Objective - Vital Signs Vital signs: Vital Signs Temp 98.4 F 10/24/24 08:00 Pulse 68 10/24/24 08:00 Resp 16 10/24/24 08:00 BP 124/76 10/24/24 08:00 Pulse Ox 99 10/24/24 08:00 FiO2 Intake & Output 10/23/24 10/24/24 10/24/24 18:59 06:59 18:59 Intake Total 118 Balance 118 Weight 88.451 kg Intake: Oral 118 Other: Voiding Method Toilet Toilet # Voids 3 - Exam GENERAL DESCRIPTION: Middle-age female lying in bed in no distress RESPIRATORY SYSTEM: Unlabored breathing , decreased breath sounds at bases HEART: S1 S2 regular rate and rhythm , ABDOMEN: Soft , no tenderness EXTREMITIES: Left middle finger and palm area swelling has decreased no open wound or drainage - Labs CBC & Chem 7: 10/19/24 04:28 10/19/24 04:28 Labs: Abnormal Lab Results - Last 24 Hours (Table) 10/24/24 Range/Units 05:00 C-Reactive Protein 2.7 H (<1.0) mg/dL Assessment and Plan (1) Cat bite Current Visit: Yes Status: Acute Code(s): W55.01XA - BITTEN BY CAT, INITIAL ENCOUNTER SNOMED Code(s): 332547672 (2) Cellulitis of left hand Current Visit: Yes Status: Acute Code(s): L03.114 - CELLULITIS OF LEFT UPPER LIMB SNOMED Code(s): 18076185672232358 Plan: 1patient presented hospital with left third finger pain and swelling redness after the patient had been bitten by cat day before presentation to the hospital with evidence of significant swelling and it is possible tenosynovitis and will need to cover for the polymicrobial oral faith of the Likely MRSA infection 2-patient patient is status post surgical I&D of the left third finger volar aspect abscess with there was evidence of tenosynovitis cultures so far negative 3-patient local culture have been negative for resistant pathogen so far, patient currently being treated with Unasyn while inpatient when stable for discharge we will consider Augmentin discussed with admitting physician Dictation was produced using [employer] dictation software. please excuse any grammatical, word or spelling errors. Time with Patient: Less than 30
[2024-10-24] MEDS: TRIAMCINOLONE 0.1% CREAM 80 GM TUBE TOPICAL SCH (14:35)
[2024-10-24 20:19] VITALS: RESP 16
[2024-10-25 07:53] VITALS: BP 121/85; PULSE 77; TEMP 98.3
[2024-10-25 10:05] LABS: Blood Urea Nitrogen 10.6 mg/dL (9.0-27.0); Carbon Dioxide 24.4 mmol/L (21.6-31.8); Chloride 102 mmol/L (96-109); Glucose 123 mg/dL (70-110); Potassium 4.3 mmol/L (3.5-5.5); Sodium 136 mmol/L (135-145)
--- NOTE | 2024-10-25 11:08 | P.PN ---
Progress Note - Text Progress Note Date: 10/25/24 Patient examined this morning she notes improvement in her pain and swelling to the left hand as well as improved range of motion of the digits of the left hand. She notes some mild pain to the ulnar aspect of the wrist that is improved when she is able to move the hand and wrist after it is immobilized in her dressings. On exam her incision sites are well-appearing there is no drainage she has improved palpation throughout the left long finger and distal aspect of the palm there are no recurrence of palpable fluid collections noted along the digit or in the palm. Patient continues to have limited but intact flexion of all joints of the long finger on her own she can achieve roughly 20% flexion arc of the long finger with passive motion I can achieve 50% composite fist of the left hand without pain. She no longer has pain with passive extension of the digit and able to achieve full extension of the long finger. There is no pain along the flexor tendon sheath of the long finger. No pain with active and passive range of motion of the wrist. She continues to be neurovascularly intact throughout the left hand. At this time from an orthopedic standpoint patient may discharge home today Recommend continuing to cover the incision sites with dressings to protect the incision sites until her follow-up visit Counseled her on continuing to work on gentle range of motion as this will help with swelling of the digits and hand Agree with the proposed plan by infectious disease for oral antibiotics on discharge, patient should continue those to their completion Patient should follow-up with my office on either or Saturday of the upcoming week, we will assess the incision sites at that time and if adequate healing is noted we will remove her sutures at that visit Please reach out to our team if there are any questions
--- NOTE | 2024-10-25 11:43 | P.DS ---
Providers Date of admission: 10/17/24 13:22 Expected date of discharge: 10/25/24 Attending physician: Goldy Morales MD Consults: 10/17/24 13:37 Consult Physician Urgent Consulting Provider: Pita Hopper Consult Reason/Comments: left hand cellulitis s/p cat bite Do you want consulting provider notified?: Yes 10/18/24 10:13 Consult Physician Urgent Consulting Provider: Sharon Ayon Consult Reason/Comments: CAT BITE of the HAND, other group does not have a hand surgeon Do you want consulting provider notified?: Yes Primary care physician: [facility] Course: 28-year-old female with no significant past medical history, presenting to the ER with left hand infection. Patient states she was bit by a stray kitten yesterday and reports swelling, redness, and pain of left third digit. States she is having difficulty with range of motion of left third digit due to pain and swelling. Denies fevers, chills, vomiting. No other health conditions. Blood work reveals WBC of 8.2, hemoglobin of 14.8 and platelet count of 283, sodium 138, potassium 4.1, BUNs/creatinine of 8/0.57 X-ray reveals no acute process. Patient was given tetanus, rabies vaccine and r abies immunoglobulin. Patient has been evaluated by ID with following recommendations patient presented hospital with left third finger pain and swelling redness after the patient had been bitten by cat day before presentation to the hospital with evidence of significant swelling and it is possible tenosynovitis and will need to cover for the polymicrobial oral faith of the Likely MRSA infection -patient benefit from hand surgery which has been consulted -Unasyn 3 g every 6 hours should provide adequate antibiotic coverage and no need for vancomycin will be discontinued 10/19/2024 Patient presents with left hand cellulitis after cat bite. Her hand is pretty swollen especially in the fingers and the distal part of the fall. The most swollen area is Proximal phalanx and the palm next to the palm Patient has also restriction in flexion. She states that this happened on and she came to the hospital on Saturday. Patient currently covered with Unasyn on normal saline 75 mL/h test is negative Mio added for pain control Hand surgeon evaluated the patient and are going to reassess tomorrow for need for I&D In the meantime she is kept on IV Unasyn 10/20 Overall swelling of the left hand without she still have significant swelling at the base of the middle finger. Patient underwent I&D by orthopedic team 10/21 Patient is s/p I&D of the left hand and finger Extensive dressing and bandage on the left hand. Pain better controlled. Patient already feels better Follow-up wound culture Continue with antibiotic IV Unasyn. Patient is eating well lower IV fluid to 50 mL/h 10/22 Hand infection continue to improve Still in dressing She eats well and IV fluid was discontinued She was complaining from constipation and laxative and stool softeners providing Continue with antibiotic 10/23 Left hand wound remains in dressing, swelling and tenderness still to improve slowly and gradually She did have bowel movement, she will try MiraLAX today. Will give also small dose of lactulose On normal saline 50 mL/h 10/24: patient seen and evaluated at bedside, blood work reviewed CRP 2.7 trending down from 3.8, does c/o hand discomfort 10/15-patient seen and evaluated at bedside, patient states discomfort in hand has improved, range of motion has improved, will be discharged on oral antibiotic. Prescription for pain medication provided by surgery team as well. Infectious disease provided prescription for Augmentin EXAM GENERAL: The patient is alert and oriented x3 HEENT: Normocephalic, atraumatic. CARDIOVASCULAR: S1 and S2 present. No murmurs, rubs, or gallops. PULMONARY: Chest is clear to auscultation, no wheezing , no crackles. MUSCULOSKELETAL: No joint swelling EXTREMITIES: No cyanosis, clubbing, or pedal edema. Left hand wound sticthes intact, swelling noted, erythema better NEUROLOGICAL: Gross neurological examination did not reveal any focal deficits. SKIN: Erythema Improved , wound bandage Assessment: Assessment and Plan Left hand cellulitis secondary to cat bite. S/p I&D on 10/21 Left hand middle finger volar abscess overlying the proximal phalanx with associated flexor tenosynovitis Continue with IV Unasyn while inpatient and transition to oral Augmentin Infectious disease consult Orthopedic and hand surgery team consult, will need outpatient follow-up Wound care She will continue soaks at home through Saturday. Three times daily. May stop on SaturdayOctober 26. She may continue dressing changes at home at least daily after soaks are done and may change more often for drainage if needed. She should continue to work on gentle range of motion of the fingers as tolerated. She will continue on oral Antibiotics per Dr. Hopper in infectious disease. She will follow-up with Dr. Dave Stout at [facility] on 10/29/2024 or 10/30/2024. She will need to call the office Saturday at for her appointment. Patient Condition at Discharge: Fair Plan - Discharge Summary New Discharge Prescriptions: New HYDROcodone/APAP 5-325MG [Mio 5-325] 1 tab PO Q6HR PRN #15 tab PRN Reason: Pain Amoxic-Pot Clav 875-125Mg [Augmentin 875-125] 1 tab PO BID 14 Days #28 tab Discharge Medication List Amoxic-Pot Clav 875-125Mg [Augmentin 875-125] 1 tab PO BID 14 Days #28 tab 10/23/24 [Rx] HYDROcodone/APAP 5-325MG [Mio 5-325] 1 tab PO Q6HR PRN #15 tab 10/23/24 [Rx] Follow up Appointment(s)/Referral(s): Dave Stout MD [STAFF PHYSICIAN] - 1 Week (mid-next week (1 week after surgery). Call office for appointment.) Omar Lenz MD [STAFF PHYSICIAN] - 1-2 days Pita Hopper MD [STAFF PHYSICIAN] - 1 Week Patient Instructions/Handouts: Animal Bite (ED) Activity/Diet/Wound Care/Special Instructions: Continue soaks at home through Saturday. Three times daily. May stop on SaturdayOctober 26. Continue dressing changes at home at least daily after soaks are done. May change more often for drainage if needed. Antibiotics per infectious disease Continue to work on gentle range of motion of the fingers as tolerated. Follow up with Dr Stout 1 week after surgery. Discharge Disposition: HOME SELF-CARE
[2024-10-25 14:06] LABS: HCT 42.5 % (37.2-46.3); HGB 13.8 g/dL (12.0-15.0); MCH 30.2 pg (27.0-32.0); MCHC 32.5 g/dL (32.0-37.0); NRBC Per 100 WBC 0 X 10*3/uL (0.00-0.01); Platelet Count 379 X 10*3/uL (140-440); RBC 4.57 X 10*6/uL (4.10-5.20); RDW 12.2 % (11.5-14.5); WBC 7.16 X 10*3/uL (4.50-10.00)
--- NOTE | 2024-10-26 09:17 | P.PN ---
Subjective Progress Note Date: 10/25/24 Principal diagnosis: Left third finger cat bite cellulitis/tenosynovitis Patient is a 28-year-old female with no significant past medical history presenting to the hospital for the left third digit pain swelling and redness that apparently been going on for about a day after the patient had been bitten by cat x-ray did not show any bony changes.Patient is status post left middle finger volar abscess and associated flexor tenosynovitis status post drainage of the abscess on 10/19/2024. On today's evaluation that is 10/25/2024, Patient is afebrile patient is current ly on room air and denies having any shortness of breath, the patient denies any chest pain or cough, the patient denies any nausea vomiting did not have any abdominal pain and no diarrhea patient pain to the left palm and third finger has decreased in intensity. Patient did have white count 7.16, creatinine 0.5 culture have been negative Objective - Vital Signs Vital signs: Vital Signs Temp 98.3 F 10/25/24 07:53 Pulse 77 10/25/24 07:53 Resp 16 10/25/24 07:53 BP 121/85 10/25/24 07:53 Pulse Ox 98 10/25/24 07:53 FiO2 Intake & Output 10/24/24 10/25/24 10/25/24 18:59 06:59 18:59 Intake Total 118 Balance 118 Intake: Oral 118 Other: Voiding Method Toilet # Voids 1 2 - Exam GENERAL DESCRIPTION: Middle-age female lying in bed in no distress RESPIRATORY SYSTEM: Unlabored breathing , decreased breath sounds at bases HEART: S1 S2 regular rate and rhythm , ABDOMEN: Soft , no tenderness EXTREMITIES: Left middle finger and palm area swelling has decreased no open wound or drainage - Labs CBC & Chem 7: 10/25/24 07:21 10/25/24 07:21 Labs: Abnormal Lab Results - Last 24 Hours (Table) 10/25/24 Range/Units 07:21 Creatinine 0.5 L (0.6-1.5) mg/dL BUN/Creatinine Ratio 21.20 H (12.00-20.00) Ratio Glucose 123 H (70-110) mg/dL C-Reactive Protein 2.60 H (0.00-0.80) mg/dL Microbiology - Last 24 Hours (Table) 10/20/24 19:10 Anaerobic Culture - Final Hand - Left 10/20/24 19:10 Anaerobic Culture - Final Hand - Left Assessment and Plan (1) Cat bite Status: Acute Code(s): W55.01XA - BITTEN BY CAT, INITIAL ENCOUNTER SNOMED Code(s): 694712844 (2) Cellulitis of left hand Status: Acute Code(s): L03.114 - CELLULITIS OF LEFT UPPER LIMB SNOMED Code(s): 15169866711663519 Plan: 1patient presented hospital with left third finger pain and swelling redness after the patient had been bitten by cat day before presentation to the hospital with evidence of significant swelling and it is possible tenosynovitis and will need to cover for the polymicrobial oral faith of the Likely MRSA infection 2-patient patient is status post surgical I&D of the left third finger volar aspect abscess with there was evidence of tenosynovitis cultures so far negative 3-patient local culture have been negative for resistant pathogen, patient has been advised Augmentin on discharge and to finish her rabies vaccination series Dictation was produced using [employer] dictation software. please excuse any grammatical, word or spelling errors. Time with Patient: Less than 30
[2024-10-31] MEDS ORDERED: RABIES VACCINE (PCEC) 2.5 UNIT KIT IM ONE (12:00)
== END 2024-10-25 15:10 | disposition home or self-care (01) | DRG 316 ==
LOC: EC 11:01 → 5NMEDONC 13:22 → 6NMEDSUR 14:02
PROVIDERS: ADMIT Internal Medicine; ATTEND Internal Medicine
PROC: 0L980ZZ Drainage of Left Hand Tendon, Open Approach (ICD-10-PCS; principal; 2024-10-20 10:10)
DX: M65.842 Other synovitis and tenosynovitis, left hand (principal); L03.114 Cellulitis of left upper limb; S61.253A Open bite of left middle finger without damage to nail, initial encounter; L02.512 Cutaneous abscess of left hand; K59.00 Constipation, unspecified; W55.01XA Bitten by cat, initial encounter; Z79.82 Long term (current) use of aspirin; Z23 Encounter for immunization
CPT/HCPCS: 36415; 80048; 80053; 81025; 83605; 84703; 85025; 85027; 86140; 87040; 87070; 87075; 87205; 90471; 90675; 90715; 96365; 96366; 96368; 96372; 99285

== ENCOUNTER 2025-01-15 11:32 | Emergency (ER) | payer OTHER ==
[2025-01-15 11:45] VITALS: BP 117/81; PULSE 82; RESP 20; TEMP 98.4
--- NOTE | 2025-01-15 12:04 | ED ---
ENT HPI - General Chief complaint: ENT Stated complaint: sore throat,fever Time Seen by Provider: 01/15/25 11:56 Source: patient, RN notes reviewed Mode of arrival: ambulatory Limitations: no limitations - History of Present Illness Initial comments: This is a 29-year-old female who presents to the emergency department for a sore throat. States that it has been going on for about a week. She has pain around her neck and states that it is painful to speak and swallow. She does report some congestion and a minor cough. Also states that she feels hot and cold. MD complaint: sore throat - Related Data Previous Rx's Medication Instructions Recorded Amoxic-Pot Clav 875-125Mg 1 tab PO BID 14 Days #28 tab 10/23/24 [Augmentin 875-125] HYDROcodone/APAP 5-325MG [Tamms 1 tab PO Q6HR PRN #15 tab 10/23/24 5-325] Cephalexin [Keflex] 500 mg PO BID #20 cap 12/11/24 Amoxic-Pot Clav 875-125Mg 1 tab PO Q12HR 7 Days #14 tab 01/15/25 [Augmentin 875-125] predniSONE 50 mg PO DAILY 5 Days #5 tab 01/15/25 Allergies Allergy/AdvReac Type Severity Reaction Status Date / Time No Known Allergies Allergy Verified 01/15/25 11:44 Review of Systems ROS Statement: Those systems with pertinent positive or pertinent negative responses have been documented in the HPI. ROS Other: All systems not noted in ROS Statement are negative. Past Medical History Past Medical History: No Reported History History of Any Multi-Drug Resistant Organisms: None Reported Past Surgical History: Cholecystectomy, Hernia Repair, Orthopedic Surgery Additional Past Surgical History / Comment(s): right foot Past Anesthesia/Blood Transfusion Reactions: Family History of Problems w/ Anesthesia, Postoperative Nausea & Vomiting (PONV) Additional Past Anesthesia/Blood Transfusion Reaction / Comment(s): grandma PONV Past Psychological History: No Psychological Hx Reported Smoking Status: Vaper Past Alcohol Use History: Occasional Past Drug Use History: Marijuana - Past Family History Father History Unknown: Yes Family Medical History: No Reported History General Exam Limitations: no limitations General appearance: alert, in no apparent distress Head exam: Present: atraumatic, normocephalic, normal inspection ENT exam: Present: other (Posterior pharyngeal erythema with mild tonsillar hypertrophy. No exudates) Respiratory exam: Present: normal lung sounds bilaterally. Absent: respiratory distress, wheezes, rales, rhonchi, stridor Cardiovascular Exam: Present: regular rate, normal rhythm Neurological exam: Present: alert, oriented X3, CN II-XII intact Psychiatric exam: Present: normal affect, normal mood Skin exam: Present: warm, dry, intact, normal color. Absent: rash Course Vital Signs 01/15/25 11:43 Temperature 98.4 F Pulse Rate 82 Respiratory 20 Rate Blood Pressure 117/81 O2 Sat by Pulse 98 Oximetry Medical Decision Making - Medical Decision Making This is a 29-year-old female who presents to the emergency department for a sore throat. Was pt. sent in by a medical professional or institution? @ -No Did you speak to anyone other than the patient for history? @ -No Did you review nursing and triage notes? @ -Yes, and I agree, it is accurate with regards to the patient's symptoms. Were old charts reviewed? @ -No Differential Diagnosis? @ -Differential Sore Throat: Strep pharyngitis, herpes zoster, COVID, influenza, GERD, allergic rhinitis, mononucleosis, this is not meant to be an all-inclusive list. EKG interpreted by me (3pts min.)? @ -Not obtained X-rays interpreted by me (1pt min.)? @ -Not obtained CT interpreted by me (1pt min.)? @ -Not obtained U/S interpreted by me (1pt. min.)? @ -Not obtained What testing was considered but not performed? (CT, X-rays, U/S, labs)? Why? @ -None What meds were considered but not given? Why? @ -None Did you discuss the management of the patient with other professionals? @ -No Did you reconcile home meds? @ -No Was smoking cessation discussed for >3mins.? @ -No Was critical care preformed (if so, how long)? @ -No Were there social determinants of health that impacted care today? How? (Homelessness, low income, unemployed, alcoholism, drug addiction, transportation, low edu. Level, literacy, decrease access to med. care, alf, rehab)? @ -No Was there de-escalation of care discussed even if they declined? (Discuss DNR or withdrawal of care, Hospice)? @ -No What co-morbidities impacted this encounter? (DM, HTN, Smoking, COPD, CAD, Cancer, CVA, Hep., AIDS, mental health diagnosis, sleep apnea, morbid obesity)? @ -None Was patient admitted / discharged? @ -Discharged. COVID, influenza, and RSV testing negative. Rapid strep test negative. However, symptoms have been going on for about a week at this point and she did have pharyngeal erythema with tonsillar hypertrophy. Given the possibility of false negatives, advised that we can treat her for strep throat with a course of antibiotics. Augmentin prescribed along with prednisone to help with the inflammation. Patient discharged home in stable condition and advised to follow-up with her PCP. Case discussed with ED attending Dr. Miranad. Return precautions reviewed in depth, the patient is instructed to return to the emergency department with any new, worsening, or concerning symptoms. Patient verbalized understanding. Undiagnosed new problem with uncertain prognosis? @ -None Drug Therapy requiring intensive monitoring for toxicity (Heparin, Nitro, Insulin, Cardizem)? @ -None Were any procedures done? @ -None Diagnosis/symptom? @ -Bacterial pharyngitis Acute, or Chronic, or Acute on Chronic? @ -Acute Uncomplicated (without systemic symptoms) or Complicated (systemic symptoms)? @ -Uncomplicated Side effects of treatment? @ -None Exacerbation, Progression, or Severe Exacerbation] @ -Not applicable Poses a threat to life or bodily function? @ -No - Lab Data Lab Results 01/15/25 01/15/25 Range/Units 11:54 11:54 Influenza Type A (PCR) Not Detected (Not Detectd) Influenza Type B (PCR) Not Detected (Not Detectd) RSV (PCR) Not Detected (Not Detectd) SARS-CoV-2 (PCR) Not Detected (Not Detectd) Group A Strep (PCR) NOT DETECTED (Not Detectd) Disposition Clinical Impression: Bacterial pharyngitis Disposition: HOME SELF-CARE Instructions (If sedation given, give patient instructions): Pharyngitis (ED) Additional Instructions: Return to the emergency department with any new, worsening, or concerning symptoms. Take the antibiotic as prescribed for 7 days. Take the prednisone daily for 5 days. Follow up with your primary care provider in 1-2 days. Prescriptions: Amoxic-Pot Clav 875-125Mg [Augmentin 875-125] 1 tab PO Q12HR 7 Days #14 tab predniSONE 50 mg PO DAILY 5 Days #5 tab Is patient prescribed a controlled substance at d/c from ED?: No Referrals: Omar Lenz MD [Primary Care Provider] - 1-2 days Time of Disposition: 13:04
[2025-01-15 12:55] LABS: Influenza A Not Detected (Not Detectd); Influenza B Not Detected (Not Detectd); RSV Not Detected (Not Detectd)
== END 2025-01-15 13:20 | disposition home or self-care (01) ==
LOC: EC 11:32
DX: J02.8 Acute pharyngitis due to other specified organisms (principal); J35.1 Hypertrophy of tonsils; B96.89 Other specified bacterial agents as the cause of diseases classified elsewhere; F17.290 Nicotine dependence, other tobacco product, uncomplicated
CPT/HCPCS: 87636; 87651; 99283